=== PATIENT | female | born 1950 | race Caucasian/White ===

== ENCOUNTER 2025-07-16 11:21 | Outpatient (CLI) | payer MEDICARE, SELFPAY ==
--- OUTSIDE RECORDS SUMMARY | 2018-04-19 13:01 | XMS_ITS | Encounter Summary ---
Author Organization [facility] Address [address] [place] [address] Care Team Providers Care Quarry Worker Name Role Phone Rubén Pisano MD Primary Care Provider [phone] Reason for Referral * Hospital - Outpatient (Routine) - Closed Specialty Diagnoses / Procedures Referred By Contac t Referred To Contact Sleep Medicine Diagnoses Suspected sleep apnea Snoring Procedures Home Sleep Study Rubén Pisano MD [address] [place] [address] Phone: tel: fax: Slava Duong MD Phone: tel: fax: Referral ID Status Reason Start Date Expiration Date Visits Re quested Visits Authorized [id number] Closed 04/04/2018 04/04/2019 1 1 Reason for Visit * Hospital - Outpatient (Routine) - Closed Specialty Diagnoses / Procedures Referred By Contac t Referred To Contact Sleep Medicine Diagnoses Suspected sleep apnea Snoring Procedures Home Sleep Study Rubén Pisano MD [address] [place] [address] Phone: tel: fax: Slava Duong MD Phone: tel: fax: Referral ID Status Reason Start Date Expiration Date Visits Re quested Visits Authorized [id number] Closed 04/04/2018 04/04/2019 1 1 Encounter Details Date Type Department Care Team (Latest Contact Info) Description 04/19/2018 2:01 PM EDT Hospital Encounter [facility] [address] [place] [address] Rubén Pisano MD [address] [facility] [address] Suspected sleep apnea; Snoring Social History Tobacco Use Types Packs/Day Years Used Date Smoking Tobacco: Former Cigarettes 0.8 34 Smokeless Tobacco: Never Alcohol Use Standard Drinks/Week Comments Yes 0 (1 standard drink = 0.6 oz pur e alcohol) rare glass of wine Abuse Screen Answer Date Recorded Unsafe at Home or Work/School Not on file Feels Threatened by Someone? Not on file 05/2023 Does Anyone Keep You from Co ntacting Others or Doint Things Outside the Home? Not on file 06/14/2023 Physical Sign of Abuse Present Not on file 1 Housing Stability Answer Date Recorded Current Living Arrangements Not on file 05/2023 Potentially Unsafe Housing Conditions Not on jennifer e 06/14/2023 Family and Community Support Answer Abhinav e Recorded Help with Day-to-Day Activities Not on file 06/14/2023 Lonely or Isolated Not on file 06/14/2023 Employment Answer Date Recorded Do you want help finding or keeping work or a leah b? Not on file 06/14/2023 Disabilities Answer Date Recorded Concentrating, Remembering, or Making Decisions Difficulty Not on file 06/14/2023 Doing Errands Independently Difficulty Not on fi le 06/14/2023 Education Answer Date Recorded Help with school or training? Not on file Preferred Language Not on file 06/14/2023 Comments Unknown Sex and Gender Information Value Date Recorded Sex Assigned at Not on file Legal Sex Female 11:17 AM EDT Gender Identity Not on file Sexual Orientation Not on file Occupation Industry Job Start Date Job End Date retired Not on file Not on file Not on file documented as of this encounter Last Filed Vital Signs Vital Sign Reading Time Taken Comments Blood Pressure 128/80 04/19/2018 1:55 PM EDT Pulse 76 04/19/2018 1:55 PM EDT Temperature - - Respiratory Rate - - Oxygen Saturation 93% 04/19/2018 1:55 PM EDT Inhaled Oxygen Concentration - - Weight 92.6 kg (204 lb 3.2 oz) 04/19/2018 1:55 P M EDT Height 157.5 cm (5' 2 ) 04/19/2018 1:55 PM EDT Body Mass Index 37.35 04/19/2018 1:55 PM EDT documented in this encounter Plan of Treatment Not on file documented as of this encounter Procedures Procedure Name Priority Date/Time Associated Diagnosis Comments WATCHPAT Routine 04/20/2018 10:00 AM EDT Suspected sleep apnea Snoring documented in this encounter Results * WATCHPAT (04/20/2018 10:00 AM EDT) Narrative Slava Duong MD - 04/28/2018 1:21 PM EDT Patient Name: Christina Dillon [facility] Date of : 1950 Date of Study:04/20/18 Sleep Specialist: Slava Duong MD Home Sleep Apnea Test Report Referring Provider: Rubén Pisano M.D. Clinical Information: 68-year-old female with snoring and suspected sleep apnea referred by Dr. Pisano for an HSAT Methods: Patient had home sleep apnea testing with a WatchPat home system. Six data channels were recorded. The study was scored using standard techniques. Findings: The patient had a study time of 503 minutes. She had overall an RICHAR of 48, consistent with severe obstructive sleep apnea. She had oxygen desaturations to 68% and spent 9% of her study time with oxygen saturations less than 90%. Her index when supine was 44. Her index on her side was 81. Impression: Severe obstructive sleep apnea is present. Snoring is present. Oxygen desaturations are present. Recommendations: The patient would likely benefit from treatment for obstructive sleep apnea. Options would include auto CPAP therapy, an oral appliance if appropriate, or surgical therapy. Lifestyle changes consisting of weight loss if needed and avoidance of nocturnal sedatives should be recommended. An average of 8 hours of sleep per night should be recommended. The patient will follow-up with Dr. Pisano for consideration of above treatment options. Slava Duong M.D. Signed by Slava Duong MD on 04/28/18. us Rubén Pisano MD [facility] ORDERABLES Final R esult documented in this encounter Visit Diagnoses Diagnosis Suspected sleep apnea Snoring Other dyspnea and respiratory abnormality documented in this encounter Care Teams Quarry Worker Relationship Specialty Start Date End Date Rubén Pisano MD [address] [place] [address] PCP - General 05/16/15 07/06/19 documented as of this encounter
--- OUTSIDE RECORDS SUMMARY | 2025-05-22 09:20 | XMS_ITS | Encounter Summary ---
Author Organization [facility] Address [address] [place] [address] Care Team Providers Care Bobcat Driver/Labor Name Role Phone Sandy Cooper APRN Primary Care Provider [phone] Emili Foster Unavailable Unavailabl e Reason for Referral * Consultation (Urgent) - Closed Specialty Diagnoses / Procedures Referred By Mona calloway Referred To Contact Gynecology Diagnoses Lower abdominal pain Pelvic [place] [address] Phone: tel: fax: Referral ID Status Reason Start Date Expiration Date V isits Requested Visits Authorized [id number] Closed Specialty Services Required 05/22/2025 11/21/2026 1 1 Scheduling Instructions Would like seen at [facility] in [place] this week if possible. Reason for Visit * Reason Comments Abdominal Pain Been in pain since T hursday night, pressure & then pain hit on Wednesday. 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; Pelvic pain; HSV (herpes simplex virus) infection; Chronic low back pain without sciatica, unspecified back pain laterality; Diffuse abdominal pain Social History Tobacco Use Types Packs/Day Years Used Date Smoking Tobacco: Former Cigarettes 1 20 0 09/06/1964 - 09/06/1981 Passive Smoke Exposure: Never Smokeless Tobacco: Former Tobacco Cessation:Counseling Given: No Alcohol Use Standard Drinks/Week Comments Never 0 (1 standard drink = 0.6 oz pur e alcohol) Social Connection and Isolation Panel Answer Date Recorded In a typical week, how many times do you talk on the phone with family, friends, or neighbors? Three times a week 10/13/2024 How often do you get togethe r with friends or relatives? Once a week 10/13/2024 How often do you attend chur or anabaptist services? Never 10/13/2024 Do you belong to any clubs o r organizations such as rastafarian groups, unions, fraternal or athletic groups, or school groups? Yes 10/13/2024 How often do you attend meet ings of the clubs or organizations you belong to? More than 4 times per year 10/13/2024 Are you , , di vorced, , never , or living with a partner? 10/13/2024 AUDIT-C Answer Date Recorded Q1: How often do you have a drink containing alc ohol? Monthly or less 10/13/2024 Q2: How many drinks containi ng alcohol do you have on a typical day when you are drinking? 1 or 2 10/13/2024 Q3: How often do you have si x or more drinks on one occasion? Never 10/13/2024 PHQ-2 Answer Date Recorded Patient Health Questionnaire-2 Score 0 05/23/2025 PHQ-9 Answer Date Recorded Patient Health Questionnaire-9 Score 6 11/23/2024 Humiliation, Afraid, Rape, and Kick questionnair e Answer Date Recorded Within the last year, have y ou been afraid of your partner or ex-partner? Patient declined 05/22/2025 Within the last year, have y ou been humiliated or emotionally abused in other ways by your partner or ex-partner? Patient declined 05/22/2025 Within the last year, have y ou been kicked, hit, slapped, or otherwise physically hurt by your partner or ex-partner? Patient declined 05/22/2025 Within the last year, have y ou been raped or forced to have any kind of sexual activity by your partner or ex-partner? Patient declined 05/22/2025 Social Connection and Isolation Panel Answer Date Recorded In a typical week, how many times do you talk on the phone with family, friends, or neighbors? Patient declined 05/22/2025 How often do you get togethe r with friends or relatives? Patient declined 05/22/2025 How often do you attend rastafarian or anabaptist serv ices? Patient declined 05/22/2025 Do you belong to any clubs o r organizations such as rastafarian groups, unions, fraternal or athletic groups, or school groups? Patient declined 05/22/2025 How often do you attend meet ings of the clubs or organizations you belong to? Patient declined 05/22/2025 Are you , , di vorced, , never , or living with a partner? Patient declined 05/22/2025 AUDIT-C Answer Date Recorded Q1: How often do you have a drink containing alc ohol? Patient declined 05/22/2025 Q2: How many drinks containi ng alcohol do you have on a typical day when you are drinking? Patient declined 05/22/2025 Q3: How often do you have si x or more drinks on one occasion? Patient declined 05/22/2025 [facility] - Occupational Stress Questionnaire Answer Date Recorded Do you feel stress - tense, restless, nervous, or anxious, or unable to sleep at night because your mind is troubled all the time - these days? Patient declined 05/22/2025 Exercise Vital Sign Answer Date Recorde d On average, how many days pe r week do you engage in moderate to strenuous exercise (like a brisk walk)? Patient declined On average, how many minutes do you engage in exercise at this level? Patient declined 05/22/2025 Hunger Vital Sign Answer Date Recorded Within the past 12 months, y ou worried that your food would run out before you got the money to buy more. Never true 05/22/20 25 Within the past 12 months, t he food you bought just didn't last and you didn't have money to get more. Never true 05/22/2025 PRAPARE - Transportation Answer Date Re corded In the past 12 months, has l ack of transportation kept you from medical appointments or from getting medications? No 05/07 In the past 12 months, has l ack of transportation kept you from meetings, work, or from getting things needed for daily living? No 05/22/2025 Housing Stability Vital Sign Answer Abhinav e Recorded In the last 12 months, was t here a time when you were not able to pay the mortgage or rent on time? No 05/22/2025 In the past 12 months, how m any times have you moved where you were living? 0 05/22/2025 At any time in the past 12 m [facility], were you homeless or living in a halfway (including now)? No 05/22/2025 [facility] Utilities Answer Date Recorded In the past 12 months has th e electric, gas, oil, or water company threatened to shut off services in your home? No 05/22/2025 Safety and Environment Answer Date Benny rded Do you worry that your child may have been physically abused? Patient declined 05/22/2025 Do you worry that your child may have been sexually abused? Patient declined 05/22/2025 Are there any guns kept in o r around your home or where your child spends time? Patient declined 05/22/2025 Guns Unloaded or Locked Away Not on file PHQ-2A Answer Date Recorded Patient Health Questionnaire-2 Score 2 05/31/2023 Comments No Sex and Gender Information Value Date Recorded Sex Assigned at Not on file Legal Sex Female 8:22 PM EDT Gender Identity Not on file Sexual Orientation Not on file documented as of this encounter Last Filed Vital Signs Vital Sign Reading Time Taken Comments Blood Pressure 134/74 05/22/2025 10:10 AM EDT Pulse 75 05/22/2025 10:10 AM EDT Temperature 36.6 C (97.9 F) 05/22/2025 10:10 AM EDT Respiratory Rate 20 05/22/2025 10:1 0 AM EDT Oxygen Saturation 97% 05/22/2025 10: 10 AM EDT Inhaled Oxygen Concentration - - Weight 87.9 kg (193 lb 12.6 oz) 025 10:10 AM EDT Height 157.5 cm (5' 2 ) 05/22/2025 10:1 0 AM EDT Body Mass Index 35.44 05/22/2025 10:10 AM EDT documented in this encounter Functional Status * AUDIT-C Score Answer Date of Assessment Author -1 05/22/2025 10:21 AM EDT Nancy Bright * Question Answer Date of Assessment Author Q1: How often do you have a drink containing alcohol? Patient declined 05/22/2025 10:21 AM EDT Myrna Bright Q2: How many drinks containing alcohol do you have on a typical day when you are drinking? Patient declined 05/22/2025 10:21 AM EDT Nancy Bright Q3: How often do you have six or more drinks on one occasion? Patient declined 05/22/2025 10:21 AM EDT Nancy Bright * Calculated C-SSRS Risk Score (Lifetime/Recent) Answer Date of Assessment Author No Risk Indicated 05/22/2025 10:22 AM EDT Nancy Bright * Question Answer Date of Assessment Author 1. Wish to be (Past 1 Month) No 025 10:22 AM KENDYT Nancy Bright 2. Non-Specific Active Suici prosper Thoughts (Past 1 Month) No 05/22/2025 10:22 AM EDT Alberto Bright 6. Suicidal Behavior (Lifetime) No 10:22 AM EDT Nancy Bright documented as of this encounter Miscellaneous Notes * Progress Notes - Guerda Machuca APRN - 05/22/2025 10:20 AM EDT Subjective Patient ID: Avis Suarez is a 75 y.o. female. Chief Complaint Patient presents with Abdominal Pain Been in pain since night, pressure & then pain hit on Wednesday. Nausea Patient c/o lower abdominal pain and pressure x 5 days. Says she initially felt like she needed to get gas out, but would have a bowel movement, reports small frequent bowel movements. oesn't feel constipated. Denies hematochezia or melena. Has colonoscopy scheduled next month. Says she feels like something is swollen down there or maybe something has dropped. She does have h/o bladder tuck. Saysthe pain/pressure improves after she urinates or has a BM. Denies dysuria, hematuria, or urinary frequency/urgency. Reports associated nausea, no vomiting. Patient also requesting a refill on her levothyroxine and Valtrex. Last TSH in October was abnormal, patient has not had rechecked. She is currently on [id number] mcg daily and reports compliance. Says she uses the Valtrex as needed for HSV outbreaks, no current issues. Lastly, patient is asking for a refill on Tramadol, uses very sparingly for back pain. Denies any previous adverse effects. The following portions of the chart were reviewed this encounter and updated as appropriate: Tobacco Allergies Meds Problems Med Hx Surg Hx Fam Hx Current Medications[1] Review of Systems A 14 point ROS reviewed and is otherwise negative except as per HPI. Objective Visit Vitals BP 134/74 Pulse 75 Temp 36.6 ??C (97.9 ??F) (Oral) Resp 20 Ht 1.575 m (5' 2 ) Wt 87.9 kg (193 lb 12.6 oz) SpO2 97% BMI 35.44 kg/m?? OB Status Postmenopausal Smoking Status Former BSA 1.96 m?? Body mass index is 35.44 kg/m??. Physical Exam Vitals reviewed. Constitutional: General: She is not in acute distress. HENT: Head: Normocephalic. Mouth/Throat: Mouth: Mucous membranes are moist. Eyes: Conjunctiva/sclera: Conjunctivae normal. Cardiovascular: Rate and Rhythm: Normal rate. Pulmonary: Effort: Pulmonary effort is normal. Abdominal: General: Bowel sounds are normal. Palpations: Abdomen is soft. There is no mass. Tenderness: There is abdominal tenderness. Comments: Suprapubic tenderness on palpation. Genitourinary: General: Normal vulva. Comments: Did not tolerate full speculum exam due to pain, but appeared to have some prolapse in the vaginal wall. Skin: General: Skin is warm and dry. Neurological: Mental Status: She is alert and oriented to person, place, and time. Psychiatric: Mood and Affect: Mood normal. Behavior: Behavior normal. Assessment/Plan 1. Lower abdominal pain (Primary) 2. Pelvic pain UA in office with small leuks, o/w normal. Urine culture pending. Will check labs and get her in with [facility], appears to be more of a [facility] issue with possible prolapse. Educated patient on signs/symptomsto monitor for and reasons to follow-up. - POCT Urinalysis dipstick - CBC W/O Differential - Comprehensive Metabolic Panel, Plasma - Urine Culture - Ambulatory referral to Gynecology; Future 3. 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 Will recheck TSH and adjust levothyroxine if needed. - Thyroid Stimulating Hormone, Plasma - levothyroxine (Synthroid, Levoxyl) 112 MCG tablet; Take 1 tablet by mouth daily. Dispense: 90 tablet; Refill: 0 4. HSV (herpes simplex virus) infection Chronic, intermittent issue, asymptomatic currently. Continue Valtrex prn, refill sent. - valACYclovir (Valtrex) 500 MG tablet; Take 1 tablet by mouth daily as needed (cold sore). Dispense: 30 tablet; Refill: 0 5. Chronic low back pain without sciatica, unspecified back pain laterality Intermittent issue. Will send a few Tramadol to use prn. Risks vs benefits and potential adverse effects of the medication discussed. PDMP reviewed and appropriate. - traMADol (Ultram) 50 MG tablet; Take 1 tablet by mouth every 8 hours as needed for severe pain. Dispense: 10 tablet; Refill: 0 Guerda Machuca APRN [1] Current Outpatient Medications: azelastine (Astelin) 0.1 % nasal spray, Administer 1 spray into each nostril 2 (two) times a day. Use in each nostril as directed, Disp: 30 mL, Rfl: 12 brimonidine (AlphaGAN P) 0.15 % ophthalmic solution, Administer 1 drop into both eyes 1 (one) time each day in the morning., Disp: 10 mL, Rfl: 3 brimonidine 0.2 % OP ophthalmic solution, INSTILL 1 DROP INTO EACH EYE EVERY 12 HOURS, Disp: , Rfl: celecoxib (CeleBREX) 200 MG capsule, Take 1 capsule (200 mg) by mouth 2 (two) times a day., Disp: 180 capsule, Rfl: 3 cimetidine (Tagamet) 400 MG tablet, Take 1 tablet (400 mg) by mouth every night. (Patient taking differently: Take 1 tablet by mouth as needed.), Disp: 90 tablet, Rfl: 0 clindamycin (Clindagel) 1 % gel, APPLY TO ACNE UP TO TWICE DAILY NEEDED FOR SPOT TREATMENT, Disp: , Rfl: clindamycin 1 % gel, APPLY THIN LAYER TOPICALLY TO AFFECTED AREA ONCE DAILY, Disp: , Rfl: clobetasol (Temovate) 0.05 % cream, as needed., Disp: , Rfl: cycloSPORINE (Restasis) 0.05 % ophthalmic emulsion, INSTILL 1 DROP INTO EACH EYE TWICE DAILY, Disp:60 each, Rfl: 3 fenofibrate (Tricor) 145 MG tablet, Take 1 tablet by mouth daily., Disp: 30 tablet, Rfl: 5 hydrocortisone 2.5 % ointment, APPLY OINTMENT EXTERNALLY TWICE DAILY, Disp: 29 g, Rfl: 0 ipratropium-albuterol (Duo-Neb) 0.5-2.5 mg/3 mL nebulizer solution, Take 3 mL by nebulization every4 to 6 hours as needed for wheezing or shortness of breath., Disp: 180 mL, Rfl: 1 levothyroxine (Synthroid, Levoxyl) 112 MCG tablet, Take 1 tablet by mouth once daily, Disp: 90 tablet, Rfl: 0 mometasone-formoterol (Dulera 200) 200-5 MCG/ACT inhaler, Inhale 2 puffs in the morning and 2 puffsbefore bedtime. Rinse mouth with water after use to reduce aftertaste and incidence of candidiasis.Do not swallow., Disp: 13 g, Rfl: 1 mupirocin (Bactroban) 2 % ointment, APPLY TWICE DAILY TO NOSTRILS,BELLY BUTTON, AND FINGERNAILS THEFIRST 2 DAYS OF EVERY MONTH THEREAFTER, Disp: , Rfl: phenazopyridine (Pyridium) 200 MG tablet, Take 1 tablet by mouth three times daily if needed for discomfort, irritation or pain (Patient taking differently: as needed. Take 1 tablet by mouth three times daily if needed for discomfort, irritation or pain), Disp: 90 tablet, Rfl: 9 Protonix 40 MG EC tablet, Take 1 tablet (40 mg) by mouth 1 (one) time each day before breakfast. Donot crush, chew, or split., Disp: 90 tablet, Rfl: 3 valACYclovir (Valtrex) 500 MG tablet, TAKE 1 TABLET DAILY (Patient taking differently: as needed.),Disp: 90 tablet, Rfl: 1 Fenofibrate 150 MG capsule, Take 1 capsule by mouth daily., Disp: , Rfl: furosemide (Lasix) 20 MG tablet, Take 1 tablet by mouth daily., Disp: , Rfl: timolol (Timoptic) 0.25 % ophthalmic solution, Administer 1 drop into both eyes 2 times a day., Disp: , Rfl: documented in this encounter Plan of Treatment Upcoming Encounters Date Type Department Care Team (Late st Contact Info) Description 08/23/2025 1:15 PM EST Office Visit Obstetrics & Gynecology [address] [place] [address] Rafael Ravi MD [address] [place] [address] Scheduled Referrals Name Type Priority Associated Diagnoses Order Schedule Ambulatory referral to Gynecology Outpatient Referral Routine Lower abdominal pain Pelvic pain Expected: 05/22/2025 (Approximate), Expires: 11/19/2026 documented as of this encounter Procedures Procedure Name Priority Date/Time Associated Diagnosis Comments URINE CULTURE Routine 05/22/2025 10:57 AM EDT Lower abdominal pain Pelvic pain CBC W/O DIFFERENTIAL Routine 05/22/2025 10:53 AM EDT Lower abdominal pain Pelvic pain TSH Routine 05/22/2025 10:53 AM EDT 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 05/23/2025 11:40 AM EDT [facility] Urine Urine specimen obtained by clean catch procedure / Unknown Non-blood Collection / Unknown 05/22/2025 10:57 AM EDT 05/22/2025 10:57 AM EDT us Guerda Machuca APRN LAB MICROBIOLOGY - GENERAL NAOMI LUTHER Final Result [facility] [address] [place] [address] * Comprehensive Metabolic Panel, Plasma (05/22/2025 10:53 AM EDT) Glucose, Plasma 90 74 - 99 mg/dL 05/22/2025 3:04 PM EDT [facility] BUN, Plasma 10 8 - 23 mg/dL 05/22/2025 3:04 PM EDT [facility] Creatinine, Plasma 0.65 0.60 - 1.10 mg/dL 05/22/2025 3:04 PM EDT [facility] BUN/Creatinine Ratio 15 05/22/2025 3:04 PM EDT [facility] Sodium, Plasma 141 136 - 145 mmol/L 05/22/2025 3:04 PM EDT [facility] Potassium, Plasma 4.2 3.6 - 4.9 mmol/L 05/22/2025 3:04 PM EDT [facility] Chloride, Plasma 107 97 - 107 mmol/L 05/22/2025 3:04 PM EDT [facility] CO2, Plasma 22 22 - 29 mmol/L 05/22/2025 3:04 PM EDT [facility] Anion Gap 12 6 - 16 mmol/L 05/22/2025 3:04 PM EDT [facility] Total Calcium, Plasma 9.7 8.9 - 10.2 mg/dL 05/22/2025 3:04 PM EDT [facility] Total Protein 7.7 6.3 - 7.9 g/dL 05/22/2025 3:04 PM EDT [facility] Albumin, Plasma 4.3 3.5 - 5.2 g/dL 05/22/2025 3:04 PM EDT [facility] AST, Plasma 34 10 - 35 U/L 05/22/2025 3:04 PM EDT [facility] ALT, Plasma 20 10 - 35 U/L 05/22/2025 3:04 PM EDT [facility] Alkaline Phosphatase, Plasma 73 46 - 142 U/L 05/22/2025 3:04 PM EDT [facility] Total Bilirubin, Plasma 0.4 0.2 - 1.1 mg/dL 05/22/2025 3:04 PM EDT [facility] eGFRcr 92.5 mL/min/1.7 3m*2 05/22/2025 3:04 PM EDT [facility] Comment:Reported eGFRcr in m L/min/1.73m2 is based the CKD-EPI 2020 equation that does not use a race coefficient. Blood Venous blood specimen / Unknown Venipuncture / Unknown 05/22/2025 10:53 AM EDT 05/22/2025 10:53 AM EDT us Guerda Machuca APRN LAB BLOOD ORDERABLES Final Resu lt [facility] [address] [place] [address] * CBC W/O Differential (05/22/2025 10:53 AM EDT) WBC Count 6.94 3.70 - 10.30 10*3/uL LAB HEMATOLOGY METHOD 05/22/2025 2:39 PM EDT [facility] RBC Count 4.97 3.90 - 5.20 10*6/uL LAB HEMATOLOGY METHOD 05/22/2025 2:39 PM EDT [facility] HGB 14.5 11.2 - 15.7 g/dL LAB HEMATOLOGY METHOD 05/22/2025 2:39 PM EDT [facility] HCT 43.5 34.0 - 45.0 % LAB HEMATOLOGY METHOD 05/22/2025 2:39 PM EDT [facility] Platelet Count 249 155 - 369 10*3/uL LAB HEMATOLOGY METHOD 05/22/2025 2:39 PM EDT [facility] MCV 88 79 - 98 fL LAB HEMATOLOGY METHOD 05/22/2025 2:39 PM EDT [facility] MCH 29.2 26.0 - 32.0 pg LAB HEMATOLOGY METHOD 05/22/2025 2:39 PM EDT [facility] MCHC 33.3 30.7 - 35.5 g/dL LAB HEMATOLOGY METHOD 05/22/2025 2:39 PM EDT [facility] RDW 13.5 11.5 - 14.5 % LAB HEMATOLOGY METHOD 05/22/2025 2:39 PM EDT [facility] MPV 11.3 8.8 - 12.5 fL LAB HEMATOLOGY METHOD 05/22/2025 2:39 PM EDT [facility] nRBC 0.0 <=0.0 per 100 WBCs LAB HEMATOLOGY METHOD 05/22/2025 2:39 PM EDT [facility] Blood Venous blood specimen / Unknown Venipuncture / Unknown 05/22/2025 10:53 AM EDT 05/22/2025 10:53 AM EDT us Guerda Machuca APRN LAB BLOOD ORDERABLES Final Resu lt [facility] [address] [place] [address] * Thyroid Stimulating Hormone, Plasma (05/22/2025 10:53 AM EDT) Pathologist [facility] Thyroid Stimulating Hormone, Plasma 3.66 0.40 - 4.20 uIU/mL 05/22/2025 3:04 PM EDT [facility] Blood Venous blood specimen / Unknown Venipuncture / Unknown 05/22/2025 10:53 AM EDT 05/22/2025 10:53 AM EDT us Guerda Machuca APRN LAB BLOOD ORDERABLES Final Resu lt [facility] [address] [place] [address] * (ABNORMAL) POCT Urinalysis dipstick (05/22/2025 10:47 AM EDT) POCT Urine Color Yellow POCT Urine Clarity Clear POCT Glucose Urine Negative Negative mg/dL POCT Bilirubin, Urine Negative Negative POCT Ketones, Urine Negative Negative mg/dL POCT Specific [place], Urine 1.020 POCT Blood, Urine Negative Negative POCT pH, Urine 7.0 5.0 to 8.0 POCT Protein, Urine Negative Negative mg/dL POCT Urobilinogen, Urine 0.2 0.2, 1 E.U./dL POCT Nitrite, Urine Negative Negative POCT Leukocyte Esterase, Urine Small(A) Negative Test Strip Lot Number [id number] Test Strip Lot Expiration [id number] Urine Urine specimen obtained by clean catch procedure / Unknown 05/22/2025 10:47 AM EDT Guerda Machuca APRN POINT OF CARE TEST ENTER/EDIT O RDERABLES Final Result documented in this encounter Visit Diagnoses Diagnosis Lower abdominal pain- Primary Abdominal pain, other specified site 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 Pelvic pain HSV (herpes simplex virus) infection Herpes simplex without mention of complication Chronic low back pain without sciatica, unspecified back pain laterality Diffuse abdominal pain documented in this encounter Additional Health Concerns Infection Onset Date Last Indicated Resolved Time 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
--- OUTSIDE RECORDS SUMMARY | 2025-05-23 09:15 | XMS_ITS | Encounter Summary ---
Author Organization Healthcare Address [address] [place] [address] Care Team Providers Care Mine Production Engineer Name Role Phone Sandy Cooper FRONT OFFICE SPECIALIST Primary Care Provider [phone] Emili Foster Unavailable Unavailabl e Reason for Visit * Reason Comments Establish Care Vaginal pain and pre ssure * Consultation (Urgent) - Closed Specialty Diagnoses / Procedures Referred By Contalex t Referred To Contact Gynecology Diagnoses Lower abdominal pain Pelvic pain Guerda Machuca, [place] [address] Phone: tel: fax: Referral ID Status Reason Start Date Expiration Date V isits Requested Visits Authorized [id number] Closed Specialty Services Required 05/22/2025 11/21/2026 1 1 Encounter Details Date Type Department Care Team (Late st Contact Info) Description 05/23/2025 10:15 AM EDT Office Visit Obstetrics & Gynecology [address] [place] [address] Rafael Ravi MD [address] [place] [address] Pelvic and perineal pain (Primary Dx); Vaginal atrophy Social History Tobacco Use Types Packs/Day Years Used Date Smoking Tobacco: Former Cigarettes 1 20 0 09/06/1964 - 09/06/1981 Passive Smoke Exposure: Never Smokeless Tobacco: Former Tobacco Cessation:Counseling Given: Not Answered Alcohol Use Standard Drinks/Week Comments Never 0 [...] 10/13/2024 How often do you attend chur ch or baptism services? Never 10/13/2024 Do you belong to any clubs o r organizations such as episcopalian groups, unions, fraternal or athletic groups, or [...] declined 05/22/2025 How often do you attend episcopalian or baptism serv ices? Patient declined 05/22/2025 Do you belong to any clubs o r organizations such as episcopalian groups, unions, fraternal or athletic groups, or [...] drinks on one occasion? Patient declined [facility] - Occupational Stress Questionnaire Answer Date Recorded [...] any time in the past 12 m [facility], were you homeless or living in a usp (including now)? No 05/22/2025 [facility] Utilities Answer Date Recorded In the past 12 months has [employer], gas, oil, or water company threatened to [...] Sign Reading Time Taken Comments Blood Pressure 156/85 05/23/2025 10:07 AM EDT Pulse 61 05/23/2025 10:07 AM EDT Temperature - - Respiratory Rate 20 05/23/2025 10:07 AM EDT Oxygen Saturation 98% 05/23/2025 10:07 AM EDT Inhaled Oxygen Concentration - - Weight 88.6 kg (195 lb 5.2 oz) 05/23/2025 10:07 AM EDT Height 157.5 cm (5' 2 ) 05/23/2025 10:07 AM EDT Body Mass Index 35.73 05/23/2025 10:07 AM EDT documented in this encounter Functional Status * Over the past 2 weeks, how often have you been bothered by any of the following problems? Question Answer Date of Assessment Author Little interest or pleasure in doing things Not at all 05/23/2025 10:09 AM EDT Deneen Sifuentes Feeling down, depressed, or hopeless Not at all 05/23/2025 10:09 AM EDT Deneen Sifuentes Patient Health Questionnaire -2 Score 0 05/23/2025 10:09 AM EDT Deneen Sifuentes documented as of this encounter Miscellaneous Notes * Progress Notes - Rafael Ravi MD - 05/23/2025 10:15 AM EDT Gynecology Note Subjective Chief Complaint Patient presents with [facility] Care Vaginal pain and pressure Thermal Erick is a 75 y.o. ( x 1) here for a new gynecologic visit. Here for evaluation of pelvic pain x 6 days - but really for much longer - some DUC/no pads - no VB- H/O HYST - 1996 for pain + endometriosis. Pain is midline - bladder - pain with urination but feels better after stream concludes. NL BM. NO breast issues. Has felt a bulge in the vagina before. Saw PCM for this - told her she may have a UTI - CX pending. LMMG - 2 m ago - [facility] Abdominal Pain This is a new problem. The current episode started in the past 7 days. The onset quality is sudden.The problem occurs constantly. The most recent episode lasted 6 days. The problem has been waxing and waning. The pain is located in the RLQ and suprapubic region. The pain is at a severity of 10/10.The quality of the pain is aching, dull and a sensation of fullness. The abdominal pain radiates to the pelvis. Associated symptoms include diarrhea, flatus, frequency and nausea. The pain is aggravated by certain positions. The pain is relieved by Bowel movements, movement, passing flatus, standing and urination. Prior diagnostic workup includes surgery. Past Medical History She has a past medical history of Absolute glaucoma, Anxiety, Asthma, Conversions - Other, Depression, Dizziness, Dry eyes, Fatty liver, GERD (gastroesophageal reflux disease), HL (hearing loss), Hyperlipidemia, Hypothyroid, Obesity, Otitis media, Recurrent upper respiratory infection (URI), Seasonal allergies, Skin cancer, Sleep apnea, Tinnitus (15 years ago), and Visual impairment. Past Surgical History She has a past surgical history that includes Hysterectomy (N/A); Gallbladder surgery (N/A); Cholecystectomy; Bladder surgery; Ventral hernia repair (12/2021); Cataract extraction; Shoulder arthroscopy; and Bronchoscopy (2016). Social History She reports that she quit smoking about 43 years ago. Her smoking use included cigarettes. She started smoking about 60 years ago. She has a 20 pack-year smoking history. She has never been exposed to tobacco smoke. She has quit using smokeless tobacco. She reports that she does not drink alcohol and does not use drugs. Family History Her family history includes Allergies in her mother; Cancer in her sister; Diabetes in an other family member; Osteoarthritis in her sister; Other cancer in her mother. Current Medications She has a current medication list which includes the following prescription(s): azelastine, brimonidine, brimonidine, celecoxib, cimetidine, clindamycin, clindamycin, clobetasol, cyclosporine, fenofibrate, fenofibrate, furosemide, hydrocortisone, ipratropium-albuterol, levothyroxine, mometasone-formoterol, mupirocin, phenazopyridine, protonix, timolol, tramadol, and valacyclovir. Allergies Allergies Codeine and Sulfa drugs Review of Systems Constitutional: Negative. HENT: Negative. Eyes: Negative. Respiratory: Negative. Cardiovascular: Negative. Gastrointestinal: Positive for abdominal pain, diarrhea, flatus and nausea. Endocrine: Negative. Genitourinary: Positive for frequency and pelvic pain. Musculoskeletal: Negative. Skin: Negative. Allergic/Immunologic: Negative. Neurological: Negative. Hematological: Negative. Psychiatric/Behavioral: Negative. All other systems reviewed and are negative. Objective Visit Vitals BP (!) 156/85 Pulse 61 Resp 20 Body mass index is 35.73 kg/m??. Physical Exam Constitutional: Appearance: Normal appearance. Genitourinary: Vulva, bladder and urethral meatus normal. No lesions in the vagina. Right Labia: No rash, tenderness, lesions, skin changes or Bartholin's cyst. Left Labia: No tenderness, lesions, skin changes, Bartholin's cyst or rash. Vaginal discharge, erythema and tenderness present. No vaginal bleeding, ulceration or granulation tissue. No vaginal prolapse present. Severe vaginal atrophy present. Pelvic exam was performed with patient in the lithotomy position. HENT: Head: Normocephalic and atraumatic. Right Ear: External ear normal. Left Ear: External ear normal. Cardiovascular: Rate and Rhythm: Normal rate and regular rhythm. Heart sounds: Normal heart sounds. Pulmonary: Effort: Pulmonary effort is normal. Breath sounds: Normal breath sounds. Abdominal: General: Abdomen is flat. Palpations: Abdomen is soft. Musculoskeletal: General: Normal range of motion. Cervical back: Normal range of motion. Neurological: General: No focal deficit present. Mental Status: She is alert and oriented to person, place, and time. Skin: General: Skin is warm and dry. Psychiatric: Mood and Affect: Mood normal. Behavior: Behavior normal. Thought Content: Thought content normal. Judgment: Judgment normal. Vitals and nursing note reviewed. Exam conducted with a vocational nurse present. Assessment/Plan Assessment & Plan Pelvic and perineal pain Orders: metroNIDAZOLE (Flagyl) 500 MG tablet; Take 1 tablet by mouth 2 times a day for 7 days. Vaginal atrophy Orders: metroNIDAZOLE (Flagyl) 500 MG tablet; Take 1 tablet by mouth 2 times a day for 7 days. Obtain UCX results from PCM RX E2 Vag cream - every other day RX vaginitis meds EXTERNAL RELATIONS DIRECTOR TVUS 4 weeks NO POP Voices agreement A total of 32 minutes was spent on this visit with at least more than 50% of the encounter spent incounseling and/or coordinating care including reviewing previous notes, counseling the patient on their identified issues as indicated in the note, discussing previous and/or ordered tests or imaging, prescribing/refilling medications, and documenting the findings in this note, as well as laying out a specific plan of action for this patient. documented in this encounter Plan of Treatment Upcoming Encounters Date Type Department Care Team (Late st Contact Info) Description 08/23/2025 1:15 PM EST Office Visit Obstetrics & Gynecology [address] [place] [address] Rafael Ravi MD [address] [place] [address] documented as of this encounter Visit Diagnoses Diagnosis Pelvic and perineal pain- Primary Vaginal atrophy Postmenopausal atrophic vaginitis documented in this encounter Additional Health Concerns Infection Onset Date Last Indicated Resolved Time MRSA 11/19/2021 11/19/2021 Assessment Noted Time PHQ-9 Depression Total Score: 6 11/24/19 2:15 PM EDT A fall risk assessment has been complete d for the patient 05/23/2025 10:10 AM EDT A Body Mass Index follow-up plan has been documented for the patient 05/23/2025 10:51 AM EDT documented as of this encounter Care Teams Mine Production Engineer Relationship Specialty Start Date End Date Sandy Cooper APRN [address] [place] [address] PCP - General 01/17/21 Emili Foster Clinical Fusing Machine Operator 05/21/25 06/25/25 documented as of this encounter
--- OUTSIDE RECORDS SUMMARY | 2025-06-19 12:00 | XMS_ITS | Encounter Summary ---
Author Organization Healthcare Address [address] [place] [address] Care Team Providers Care High School Biology Teacher Name Role Phone Sandy Cooper APRN Primary Care Provider [phone] Emili Foster Unavailabl e Encounter Details Date Type Department Care Team (Latest Contact Info) Description 06/19/2025 1:00 PM EDT Ancillary Procedure Obstetrics & Gynecology [address] [place] [address] Pelvic and perineal pain Social History Tobacco Use Types Packs/Day Years Used Date Smoking Tobacco: Former Cigarettes 1 20 0 09/06/1964 - 09/06/1981 Passive Smoke Exposure: Never Smokeless Tobacco: Former Alcohol Use Standard Drinks/Week Comments Never 0 [...] often do you attend chur ch or presybeterian services? Never 10/13/2024 Do you belong to any clubs o r organizations such as protestant groups, unions, fraternal or athletic groups, or [...] Date Recorded Patient Health Questionnaire-2 Score 0 06/19/2025 PHQ-9 Answer Date Recorded Patient Health Questionnaire-9 [...] declined 05/22/2025 How often do you attend protestant or presybeterian serv ices? Patient declined 05/22/2025 Do you belong to any clubs o r organizations such as protestant groups, unions, fraternal or athletic groups, or [...] drinks on one occasion? Patient declined 05/22/2025 [facility] - Occupational Stress Questionnaire Answer Date [...] any time in the past 12 m onths, were you homeless or living in a [place] (including now)? No 05/22/2025 [facility] Utilities Answer Date Recorded In the [...] on file documented as of this encounter Functional Status * Over the past 2 weeks, how often have you been bothered by any of the following problems? Question Answer Date of Assessment Author Little interest or pleasure in doing things Not at all 06/19/2025 1:23 PM EDT Horacio Santiago Feeling down, depressed, or hopeless Not at all 06/19/2025 1:23 PM EDT Horacio Santiago Patient Health Questionnaire-2 Score 0 06/19/2025 1:23 PM EDT Bridget Santiago * How difficult have these problems made it for you to do your work, take care of things at home, or get along with other people? Answer Date of Assessment Author Not difficult at all 06/19/2025 1:23 PM EDT Bridget Mcmullen documented as of this encounter Plan of Treatment Upcoming Encounters Date Type Department Care Team (Late st Contact Info) Description 08/23/2025 1:15 PM EST Office Visit Obstetrics & Gynecology [address] [place] [address] Rafael Ravi MD [address] [place] [address] documented as of this encounter Procedures Procedure Name Priority Date/Time Associated Diagnosis Comments US PELVIS TRANSVAGINAL Routine 06/19/2025 12:59 PM EDT Pelvic and perineal pain documented in this encounter Results * US Pelvis Transvaginal (06/19/2025 12:59 PM EDT) Anatomical Region Laterality Modality Pelvis Ultrasound 06/19/2025 1:36 PM EDT Impressions 06/19/2025 1:46 PM EDT The OB Ultrasound you requested has been resulted. Please navigate to the Imaging tab in [employer] for review. This message has been generated by the interface. Narrative Procedure Note Rafael Ravi MD - 06/19/2025 IMPRESSION: The OB Ultrasound you requested has been resulted. Please navigate to theImaging tab in [employer] for review. This message has been generated by theinterface. us Rafael Ravi MD IMG US PROCEDURES Final Result documented in this encounter Visit Diagnoses Diagnosis Pelvic and perineal pain documented in this encounter Additional Health Concerns Infection Onset Date Last Indicated Resolved Time MRSA 11/19/2021 11/19/2021 Assessment Noted Time PHQ-9 Depression Total Score: 6 11/24/19 2:15 PM EDT A fall risk assessment has been complete d for the patient 06/19/2025 1:23 PM EDT A Body Mass Index follow-up plan has been documented for the patient 06/19/2025 1:46 PM EDT documented as of this encounter Care Teams High School Biology Teacher Relationship Specialty Start Date End Date Sandy Cooper APRN [address] [place] [address] PCP - General 01/17/21 Emili Foster Clinical Manager Cleaning 05/21/25 06/25/25 documented as of this encounter
--- OUTSIDE RECORDS SUMMARY | 2025-06-19 12:30 | XMS_ITS | Encounter Summary ---
Author Organization Healthcare Address [address] [place] [address] Care Team Providers Care Plastic Fabricator Name Role Phone Sandy Cooper APRN Primary Care Provider [phone] Emili Foster Unavailable Unavailabl e Reason for Referral * Consultation (Routine) - Authorized Specialty Diagnoses / Procedures Referred By Mona calloway Referred To Contact Physical Therapy Diagnoses Strain of psoas muscle, unspecified laterality, initial encounter Rafael Ravi MD [address] [place] [address] Phone: tel: fax: [facility] Physical Therapy - [address] [address] Phone: tel: fax: Referral ID Status Reason Start Date Expiration Date Visits Requested Visits Authorized [id number] Authorized Consult and Treat 06/19/2025 12/19/2026 1 1 Reason for Visit * Reason Comments Office Visit Pt is here for an US stated she is having an little pain on right side of abdomen . Encounter Details Date Type Department Care Team (Late st Contact Info) Description 06/19/2025 1:30 PM EDT Office Visit Obstetrics & Gynecology [address] [place] [address] Rafael Ravi MD [address] [place] [address] Pelvic and perineal pain (Primary Dx); Vaginal atrophy; Strain of psoas muscle, unspecified laterality, initial encounter Social History Tobacco Use Types Packs/Day Years [...] week 10/13/2024 How often do you attend [facility] or scientology services? Never 10/13/2024 Do you belong to any clubs o r organizations such as lutheran groups, unions, fraternal or athletic groups, or [...] declined 05/22/2025 How often do you attend lutheran or scientology serv ices? Patient declined 05/22/2025 Do you belong to any clubs o r organizations such as lutheran groups, unions, fraternal or athletic groups, or [...] drinks on one occasion? Patient declined [facility]/22/20[facility] - Occupational Stress Questionnaire Answer Date [...] any time in the past 12 m [facility], were you homeless or living in a penitentiary (including now)? No 05/22/2025 [facility] Utilities Answer Date Recorded In [...] Sign Reading Time Taken Comments Blood Pressure 128/71 06/19/2025 1:21 PM EDT Pulse 62 06/19/2025 1:21 PM EDT Temperature 36.8 C (98.2 F) 06/19/2025 1:21 PM EDT Respiratory Rate - - Oxygen Saturation 97% 06/19/2025 1:21 PM EDT Inhaled Oxygen Concentration - - Weight 87 kg (191 lb 12.8 oz) 06/19/2025 1:21 PM EDT Height - - Body Mass Index 35.08 05/23/2025 10:07 AM EDT documented in this [...] difficult at all 06/19/2025 1:23 PM EDT SheBridget Dewitt documented as of this encounter Miscellaneous Notes * Progress Notes - Rafael Ravi MD - 06/19/2025 1:30 PM EDT Gynecology Note Subjective Chief Complaint Patient presents with Office Visit Pt is here for an US stated she is having an little pain on right side of abdomen . Christina Suarez is a 75 y.o. ( x 1) here for a f/u gynecologic visit. Here for f/u evaluation of pelvic pain x 6 days - but really for much longer - some DUC/no pads - no VB - H/O HYST - 1996 for pain + endometriosis. Pain is midline (R>L) - bladder - pain with urination but feels better after stream concludes. NL BM. NO breast issues. Has felt a bulge in the vagina before. Saw PCM for this - told her she may have a UTI - CX pending. LMMG - 2 m ago - wnl [facility] For DEVOPS TVUS + plan today. Abdominal Pain This is a new problem. [...] (hearing loss), Hyperlipidemia, Hypothyroid, Obesity, Otitis media, Pharyngitis (10/17/21), Recurrent upper respiratoryinfection (URI), Seasonal allergies, Skin cancer, Sleep apnea, Tinnitus (15 years ago), and Visual impairment. Past Surgical History She has a past surgical history that includes Hysterectomy (N/A); Gallbladder surgery (N/A); Cholecystectomy; Bladder surgery; Ventral hernia repair (12/2021); Cataract extraction; Shoulder arthroscopy; and Bronchoscopy (2015). Social History She reports that she quit [...] brimonidine, celecoxib, cimetidine, clindamycin, clindamycin, clobetasol, cyclosporine, estradiol, fenofibrate, fenofibrate, furosemide, hydrocortisone, ipratropium-albuterol, levothyroxine, mometasone- formoterol, mupirocin, phenazopyridine, protonix, timolol, tramadol, and valacyclovir. [...] and are negative. Objective Visit Vitals BP 128/71 Pulse 62 Temp 36.8 ??C (98.2 ??F) Body mass index is 35.08 kg/m??. Physical Exam Constitutional: Appearance: Normal appearance. Genitourinary: Vulva normal. Right Labia: No rash, tenderness, lesions, skin changes or Bartholin's cyst. Left Labia: No tenderness, lesions, skin changes, Bartholin's cyst or rash. HENT: Head: Normocephalic and atraumatic. Right Ear: External ear normal. Left Ear: External ear normal. Pulmonary: Effort: Pulmonary effort is normal. Abdominal: General: Abdomen is flat. Palpations: Abdomen [...] nursing note reviewed. Exam conducted with a senior accountant cpa present. DEVOPS TVUS - NO DEVOPS organs visualized - NO FF Assessment/Plan Assessment & Plan Pelvic and perineal pain Orders: US Pelvis Transvaginal; Future Vaginal atrophy Strain of psoas muscle, unspecified laterality, initial encounter Orders: Ambulatory referral to Physical Therapy; Future Continue E2 Vag cream - every other day Discussed DEVOPS TVUS - reassurance Suspect Psoas BL - Refer to PFPT F/U 2 m Voices agreement A total of 32 minutes [...] Visit Obstetrics & Gynecology [address] [place] [address] Rafael Ravi MD [address] [place] [address] Scheduled Referrals Name Type Priority Associated Diagnoses Orde r Schedule Ambulatory referral to Physical Therapy Outpatient Referral Routine Strain of psoas muscle, unspecified laterality, initial encounter Expected: 06/19/2025 (Approximate), Expires: 12/21/2026 documented as of this encounter Results * US Pelvis Transvaginal (06/19/2025 12:59 PM EDT) Anatomical Region Laterality Modality Pelvis Ultrasound 06/19/2025 1:36 PM EDT Impressions 06/19/2025 1:46 PM EDT The OB Ultrasound you requested has been resulted. Please navigate to the Imaging tab in [facility] for review. This message has been generated by the interface. Narrative Procedure Note Rafael Ravi MD - 06/19/2025 IMPRESSION: The OB Ultrasound you requested has been resulted. Please navigate to theImaging tab in [facility] for review. This message has been generated by theinterface. us Rafael Ravi MD IMG US PROCEDURES Final Result documented in this encounter Visit Diagnoses Diagnosis Pelvic and perineal pain- Primary Vaginal atrophy Postmenopausal atrophic vaginitis Strain of psoas muscle, unspecified laterality, initial encounter Pelvic and perineal pain documented in this encounter Additional Health Concerns Infection Onset Date Last Indicated Resolved Time MRSA 11/19/2021 11/19/2021 Assessment Noted Time PHQ-9 Depression Total Score: 6 11/24/19 25 2:15 PM EDT A fall risk assessment has been complete d for the patient 06/19/2025 1:23 PM EDT A Body Mass Index follow-up plan has been documented for the patient 06/19/2025 1:46 PM EDT documented as of this encounter Care Teams Plastic Fabricator Relationship Specialty Start Date End Date Sandy Cooper APRN [address] [place] [address] PCP - General 01/17/21 Emili Foster Clinical Windows System Admin 05/21/25 06/25/25 documented as of this encounter
--- OUTSIDE RECORDS SUMMARY | 2025-06-25 09:20 | XMS_ITS | Encounter Summary ---
Author Organization Healthcare Address [address] [place] [address] Care Team Providers Care Geography Instructor Name Role Phone Sandy Cooper APRN Primary Care Provider [phone] Emili Foster Unavailable Unavailabl e Reason for Visit * Reason Comments Cough Nasal Congestion Encounter Details Date Type Department Care Team (Late st Contact Info) Description 06/25/2025 10:20 AM EDT Office Visit [facility] [address] [place] [address] Nat Bass MD [address] [place] [address] Acute bronchitis due to other specified organisms (Primary Dx) Social History Tobacco Use Types Packs/Day Years [...] How often do you attend chur or pentecostal services? Never 10/13/2024 Do you belong to any clubs o r organizations such as mu-ism groups, unions, fraternal or athletic groups, or [...] declined 05/22/2025 How often do you attend mu-ism or pentecostal serv ices? Patient declined 05/22/2025 Do you belong to any clubs o r organizations such as mu-ism groups, unions, fraternal or athletic groups, or [...] drinks on one occasion? Patient declined 05/22/2025 [facility] Questionnaire Answer Date [...] any time in the past 12 m [facility], were you homeless or living in a jail (including now)? No 05/22/2025 [facility] Utilities Answer Date Recorded In the [...] Sign Reading Time Taken Comments Blood Pressure 118/80 06/25/2025 10:16 AM EDT Pulse 78 06/25/2025 10:16 AM EDT Temperature 36.8 C (98.3 F) 06/25/2025 10:16 AM EDT Respiratory Rate - - Oxygen Saturation 98% 06/25/2025 10:16 AM EDT Inhaled Oxygen Concentration - - Weight 86.8 kg (191 lb 5.8 oz) 06/25/2025 10:16 AM EDT Height 157.5 cm (5' 2 ) 06/25/2025 10:16 AM EDT Body Mass Index 35 06/25/2025 10:16 AM EDT documented in this encounter Functional Status * Calculated C-SSRS Risk Score (Lifetime/Recent) Answer Date of Assessment Author No Risk Indicated 06/25/2025 10:22 AM EDT Selene Aguero * Question Answer Date of Assessment Author 1. Wish to be (Past 1 Month) No 025 10:22 AM EDT Selene Aguero 2. Non-Specific Active Suici prosper Thoughts (Past 1 Month) No 06/25/2025 10:22 AM EDT Selene Aguero 6. Suicidal Behavior (Lifetime) No 10:22 AM EDT Selene Aguero documented as of this encounter Miscellaneous Notes * Progress Notes - Nat Bass MD - 06/25/2025 10:20 AM EDT Subjective Patient ID: Avis Suarez is a 75 y.o. female. Chief Complaint Patient presents with Cough Nasal Congestion Cough Had covid 2 weeks ago, seen at [facility] and give cough meds, had been going on 3 days at that time. Cough worsening and now sputum is davies and thick. Some frontal headache and pressure. No fevers. Current Medications[1] Pertinent review of systems has been performed and negative except as noted in HPI. Pertinent areas of the chart reviewed include social, family, past medical and surgical history. Objective Physical Exam Vitals reviewed. Constitutional: General: She is awake. Appearance: Normal appearance. HENT: Head: Normocephalic and atraumatic. Nose: Congestion and rhinorrhea present. Mouth/Throat: Pharynx: Posterior oropharyngeal erythema present. No oropharyngeal exudate. Eyes: Pupils: Pupils are equal, round, and reactive to light. Cardiovascular: Rate and Rhythm: Normal rate and regular rhythm. Heart sounds: Normal heart sounds. Pulmonary: Effort: Pulmonary effort is normal. Breath sounds: Normal breath sounds and air entry. Comments: Frequent coughing Abdominal: Palpations: Abdomen is soft. Skin: General: Skin is warm. Neurological: Mental Status: She is alert and oriented to person, place, and time. Mental status is at baseline. Psychiatric: Mood and Affect: Mood normal. Behavior: Behavior normal. Behavior is cooperative. Thought Content: Thought content normal. Assessment/Plan Diagnoses and all orders for this visit: Acute bronchitis due to other specified organisms - azithromycin (Zithromax) 250 MG tablet; Take 2 tabs (500 mg) by mouth today, than 1 daily for 4 days. - predniSONE (Deltasone) 20 MG tablet; Take 2 tablets by mouth daily for 5 days. May need UA another day if symptoms return. Tx for bronchitis today, ahs been over 2 weeks with increased sputum. No follow-ups on file. Note to patient: The Century Cures Act makes medical notes like these available to patients inthe interest of transparency. However, be advised this is a medical document. It is intended as peer to peer communication. It is written in medical language and may contain abbreviations or verbiagethat are unfamiliar. It may appear blunt or direct. Medical documents are intended to carry relevant information, facts as evident, and the clinical opinion of the practitioner. [1] Current Outpatient Medications: Azelastine HCl 137 MCG/SPRAY solution, Administer 1 spray into each nostril 2 times a day. As directed, Disp: 30 mL, Rfl: 11 brimonidine (AlphaGAN P) 0.15 % ophthalmic solution, [...] EYE TWICE DAILY, Disp:60 each, Rfl: 3 estradiol (Estrace) 0.1 MG/GM vaginal cream, Insert 2 g into the vagina every other day. At bedtime., Disp: 42.5 g, Rfl: 3 fenofibrate (Tricor) 145 MG tablet, Take 1 tablet by mouth daily., Disp: 30 tablet, Rfl: 5 Fenofibrate 150 MG capsule, Take 1 capsule by mouth daily., Disp: , Rfl: furosemide (Lasix) 20 MG tablet, Take 1 tablet by mouth daily., Disp: , Rfl: hydrocortisone 2.5 % ointment, APPLY OINTMENT EXTERNALLY TWICE DAILY, Disp: 29 g, Rfl: 0 ipratropium-albuterol (Duo-Neb) 0.5-2.5 mg/3 mL nebulizer solution, Take 3 mL by nebulization every4 to 6 hours as needed for wheezing or shortness of breath., Disp: 180 mL, Rfl: 1 levothyroxine (Synthroid, Levoxyl) 112 MCG tablet, Take 1 tablet by mouth daily., Disp: 90 tablet, Rfl: 0 mometasone-formoterol (Dulera [...] or split., Disp: 90 tablet, Rfl: 3 timolol (Timoptic) 0.25 % ophthalmic solution, Administer 1 drop into both eyes 2 times a day., Disp: , Rfl: traMADol (Ultram) 50 MG tablet, Take 1 tablet by mouth every 8 hours as needed for severe pain., Disp: 10 tablet, Rfl: 0 valACYclovir (Valtrex) 500 MG tablet, Take 1 tablet by mouth daily as needed (cold sore)., Disp: 30tablet, Rfl: 0 azithromycin (Zithromax) 250 MG tablet, Take 2 tabs (500 mg) by mouth today, than 1 daily for 4 days., Disp: 6 tablet, Rfl: 0 predniSONE (Deltasone) 20 MG tablet, Take 2 tablets by mouth daily for 5 days., Disp: 10 tablet, Rfl: 0 documented in this encounter Plan of Treatment Upcoming Encounters Date Type Department Care Team (Late st Contact Info) Description 08/23/2025 1:15 PM EST Office Visit Obstetrics & Gynecology [address] [place] [address] Rafael Ravi MD [address] [place] [address] documented as of this encounter Visit Diagnoses Diagnosis Acute bronchitis due to other specified organisms- Primary documented in this encounter Additional Health Concerns Infection Onset Date Last Indicated Resolved Time MRSA 11/19/2021 11/19/2021 Assessment Noted Time PHQ-9 Depression Total Score: 6 11/24/19 2:15 PM EDT A fall risk assessment has been complete d for the patient 06/25/2025 10:23 AM EDT A Body Mass Index follow-up plan has been documented for the patient 06/25/2025 10:36 AM EDT documented as of this encounter Care Teams Geography Instructor Relationship Specialty Start Date End Date Sandy Cooper APRN [address] [place] [address] PCP - General 01/17/21 Emili Foster Clinical Weigher Packing 05/21/25 06/25/25 documented as of this encounter
--- OUTSIDE RECORDS SUMMARY | 2025-07-16 11:30 | XMS_ITS | Encounter Summary ---
Author Organization Healthcare Address [address] [place] [address] Care Team Providers Care Prepress Proofer Name Role Phone KennethSandy STEPHENIE Primary Care Provider [phone] Laura Tinajero COMPUTER OPERATIONS ANALYST Unavailable Unavailable Carmen Mcleod COMPUTER OPERATIONS ANALYST Unavailable Unavailabl e Emili Foster Unavailable Unavailabl e Encounter Details Date Type Department Care Team ([facility] Contact Info) Description 09/29/2021 Outside Procedure External Location [address] [place] [address] Provider, [facility] Social History Tobacco Use Types Packs/Day Years Used Date Smoking Tobacco: Former Cigarettes 0.5 20 1 965 - 1985 Smokeless Tobacco: Never Alcohol Use Standard Drinks/Week Comments Never 0 (1 standard drink = 0.6 oz pur e alcohol) PHQ-2 Answer Date Recorded Patient Health Questionnaire-2 Score 0 09/15/2021 Comments No Sex and Gender Information Value Date Recorded Sex Assigned at Not on file Legal Sex Female 8:22 PM EDT Gender Identity Not on file Sexual Orientation Not on file COVID-19 Exposure Response Date Recorded In the last month, have you been in contact with someone who was confirmed or suspected to have Coronavirus / COVID-19? No / Unsure 10/02/2021 9:53 AM EST documented as of this encounter Plan of Treatment Upcoming Encounters Date Type Department Care Team ([facility] Contact Info) Description 08/23/2025 1:15 PM EST Office Visit Obstetrics & Gynecology [address] [place] [address] Rafael Ravi MD [address] [place] [address] documented as of this encounter Procedures Procedure Name Priority Date/Time Associated Diagnosis Comments FL UPPER GI W DOUBLE CONTRAST 09/29/2021 7:43 AM EST documented in this encounter Results * FL Upper GI w Double Contrast (09/29/2021 7:43 AM EST) Anatomical Region Laterality Modality Esophagus, stomach and duodenum Radiographic Imaging 09/29/2021 7:43 AM EST Narrative 09/29/2021 10:52 AM EST [address] [place] [address] Name: OMER CHAVIRA Exam Date: 09/29/2021 : 1950 Age 71 Gender: F Physician: SYDNEE MERCHANT Facility: [facility] Facility HSV: Outpatient Exam: UGI W/AIR W/O KUB UPPER GI HISTORY: Hiatal hernia The patient was administered barium contrast and gas producing crystals. Spot and overhead films were obtained. A 13 mm barium tablet passes easily through the esophagus into the stomach. The stomach is of normal size, shape and position. No gastric filling defects are seen. The duodenal bulb and sweep appear unremarkable. There is mild gastroesophageal reflux. There is esophageal dysmotility. There is a small hiatal hernia. Radiation dose: 128.74 mGy IMPRESSION: Small hiatal hernia with mild gastroesophageal reflux and esophageal dysmotility. Images reviewed, interpreted, and dictated by Dr. Srinath Portillo. Transcribed by Topher Rincon PA-C Dictated By: ASHA PORTILLO Transcribed By: Srinath Portillo Transcribed On: 09/29/2021 10:41 AM Electronically signed by: ASHA PORTILLO 09/29/2021 Thank you for referring OMER CHAVIRA to [facility]. Legally authenticated by BANDAR HERNANDEZ 2021-09-29 10:41:19 Procedure Note Provider, [facility] - 09/29/2021 [facility] [address] [place] [address] Name: OMER CHAVIRA Exam Date: 09/29/2021 : 1950 Age 71 Gender: F Physician: SYDNEE MERCHANT Facility: [facility] Facility HSV: Outpatient Exam: UGI W/AIR W/O KUB UPPER GI HISTORY: Hiatal hernia The patient was administered barium contrast and gas producing crystals.Spot and overhead films were obtained. A 13 mm barium tablet passes easilythrough the esophagus into the stomach. The stomach is of normal size, shape and position. No gastric fillingdefects are seen. The duodenal bulb and sweep appear unremarkable. There is mild gastroesophageal reflux. There is esophageal dysmotility. There is asmall hiatal hernia. Radiation dose: 128.74 mGy IMPRESSION: Small hiatal hernia with mild gastroesophageal reflux and esophageal dysmotility. Images reviewed, interpreted, and dictated by Dr. Srinath Portillo. Transcribedby Topher Rincon PA-C Dictated By: ASHA PORTILLO Transcribed By: Srinath Portillo Transcribed On: 09/29/2021 10:41 AM Electronically signed by: ASHA PORTILLO 09/29/2021 Thank you for referring OMER CHAVIRA to [facility]. Legally authenticated by BANDAR HERNANDEZ 2021-09-29 10:41:19 Generic [place] Provider IMG FLUOROSCOPY PROC EDURES Final Result documented in this encounter Visit Diagnoses Not on filedocumented in this encounter Additional Health Concerns Infection Onset Date Last Indicated Resolved Time COVID-19 Rule-Out 10/02/2021 10/02/2021 10/02/2021 6:28 PM EST MRSA 11/19/2021 11/19/2021 COVID-19 Rule-Out 11/23/2024 11/23/2024 11/24/2024 11:17 AM EDT Assessment Noted Time A fall risk assessment has been complete d for the patient 09/15/2021 1:26 PM EST documented as of this encounter Care Teams Prepress Proofer Relationship Specialty Start Date End Date Sandy Cooper APRN [address] [place] [address] PCP - General 01/17/21 Laura Tinajero LPN VALUE-[employer]ED [place] [address] TCM Nurse 10/20/22 10/21/22 Carmen Mcleod LPN VALUE-BASED TRANSFORMATION PROGRAM Licensed Practical Nurse 10/12/24 04/10/25 Emili Foster Clinical Hvac Instructor 05/21/25 06/25/25 documented as of this encounter
--- OUTSIDE RECORDS SUMMARY | 2025-07-16 11:31 | XMS_ITS | Encounter Summary ---
Author Organization Healthcare Address [address] [place] [address] Care Team Providers Care Geospatial Extractor Analysis Name Role Phone Sandy Cooper APRN Primary Care Provider [phone] Carmen Mcleod LPN Unavailable Unavailabl e Emili Foster Unavailable Unavailabl e Encounter Details Date Type Department Care Team (Late st Contact Info) Description 05/28/2023 Outside Procedure External Location [address] [place] [address] Provider, [facility] [place] Social History Tobacco Use Types Packs/Day Years Used Date Smoking Tobacco: Former Cigarettes 1 - 1981 Passive Smoke Exposure: Never Smokeless Tobacco: Never Alcohol Use Standard Drinks/Week Comments Never 0 (1 standard drink = 0.6 oz pur e alcohol) PHQ-2 Answer Date Recorded Patient Health Questionnaire-2 Score 2 05/31/2023 PHQ-2A Answer Date Recorded Patient Health Questionnaire-2 [...] Little interest or pleasure in doing things Several days 05/31/2023 1:47 PM EDT Thelma Rocha Feeling down, depressed, or hopeless Several days 05/31/2023 1:47 PM EDT Thelma Rocha Patient Health Questionnaire -2 Score 2 05/31/2023 1:47 PM EDT Thelma Rocha * How difficult have these problems made it for you to do your work, take care of things at home, or get along with other people? Answer Date of Assessment Author Somewhat difficult 05/31/2023 1:47 PM EDT Thelma Caballero documented as of this encounter Plan of Treatment Upcoming Encounters Date Type Department Care Team (Late st Contact Info) Description 08/23/2025 1:15 PM EST Office Visit Obstetrics & Gynecology [address] [place] [address] Rafael Ravi MD [address] [place] [address] documented as of this encounter Procedures Procedure Name Priority Date/Time Associated Diagnosis Comments XR CHEST 1 VIEW 05/28/2023 11:10 AM EDT documented in this encounter Results * XR Chest 1 View (05/28/2023 11:10 AM EDT) Anatomical Region Laterality Modality Chest Digital Radiogra phy 05/28/2023 11:1 0 AM EDT Narrative 05/28/2023 11:53 AM EDT [place] [id number] Name: OMER SUAREZ Exam Date: 05/28/2023 : 1950 Age 73 Gender: F Physician: IOANA KISER Facility: [facility] Facility HSV: Outpatient Exam: CHEST PORTABLE CHEST, 1 view HISTORY: Chest pain COMPARISON: None. FINDINGS: Bibasilar atelectasis. There is no evidence of effusion or other pleural disease. The mediastinum has a normal appearance. The cardiac silhouette is unremarkable. IMPRESSION: Bibasilar atelectasis. Dictated By: Cydney Yoon Transcribed By: Cydney Grace Transcribed On: 05/28/2023 11:41 AM Electronically signed by: Cydney Yoon 05/28/2023 Thank you for referring OMER SUAREZ to [facility]. Legally authenticated by TORO JOY 2023-05-28 11:41:23 Procedure Note Provider, [facility] - 05/28/2023 [address] [place] [address] Name: OMER SUAREZ Exam Date: 05/28/2023 : 1950 Age 73 Gender: F Physician: IOANA KISER Facility: [facility] Facility HSV: Outpatient Exam: CHEST PORTABLE CHEST, 1 view HISTORY: Chest pain COMPARISON: None. FINDINGS: Bibasilar atelectasis. There is no evidence of effusion or other pleural disease. The mediastinumhas a normal appearance. The cardiac silhouette is unremarkable. IMPRESSION: Bibasilar atelectasis. Dictated By: Cydney Yoon Transcribed By: Cydney Grace Transcribed On: 05/28/2023 11:41 AM Electronically signed by: Cydney Yoon 05/28/2023 Thank you for referring OMER SUAREZ to [facility]. Legally authenticated by TORO JOY 2023-05-28 11:41:23 Generic [place] Provider IMG XR PROCEDURES Fi nal Result documented in this encounter Visit Diagnoses Not on filedocumented in this encounter Additional Health Concerns Infection Onset Date Last Indicated Resolved Time MRSA 11/19/2021 11/19/2021 COVID-19 Rule-Out 11/23/2024 11/23/2024 11/24/2024 11:17 AM EDT Assessment Noted Time PHQ-9 Depression Total Score: 21 022 3:03 PM EST A fall risk assessment has been complete d for the patient 03/23/2023 1:31 PM EDT A Body Mass Index follow-up plan has been documented for the patient 03/27/2023 2:14 PM EDT documented as of this encounter Care Teams Geospatial Extractor Analysis Relationship Specialty Start Date End Date Sandy Cooper, ASSOCIATE BUSINESS ANALYST [address] [place] [address] PCP - General 01/17/21 Carmen Mcleod LPN VALUE-BASED TRANSFORMATION PROGRAM Licensed Practical Nurse 10/12/24 04/10/25 Emili Foster Clinical Accounts Collector 05/21/25 06/25/25 documented as of this encounter
--- OUTSIDE RECORDS SUMMARY | 2025-07-16 11:31 | XMS_ITS | Encounter Summary ---
Author Organization Healthcare Address [address] [place] [address] Care Team Providers Care Aircraft Machinist Name Role Phone KennethSandy STEPHENIE Primary Care Provider [phone] Laura Tinajero TEXTILE SCIENCE TECHNICIAN Unavailable Unavailable Carmen Mcleod TEXTILE SCIENCE TECHNICIAN Unavailable Unavailabl e Emili Foster Unavailable Unavailabl e Encounter Details Date Type Department Care Team (Late Contact Info) Description 10/17/2022 Outside Procedure External Location [address] [place] [address] Provider, [facility] Social History Tobacco Use Types Packs/Day Years Used Date Smoking Tobacco: Former Cigarettes 1 25 09 965 - 1981 Passive Smoke Exposure: Never Smokeless Tobacco: Never Alcohol Use Standard Drinks/Week Comments Never 0 (1 standard drink = 0.6 oz pur e alcohol) PHQ-2 Answer Date Recorded Patient Health Questionnaire-2 Score 0 09/14/2022 Comments No Sex and Gender Information Value Date Recorded Sex Assigned at Not on file Legal Sex Female 8:22 PM EDT Gender Identity Not on file Sexual Orientation Not on file COVID-19 Exposure Response Date Recorded In the last 10 days, have yo u been in contact with someone who was confirmed or suspected to have Coronavirus/COVID-19? No / Unsure 10/01/2022 10:09 AM EST documented as of this encounter Plan of Treatment Upcoming Encounters Date Type Department Care Team (Late Contact Info) Description 08/23/2025 1:15 PM EST Office Visit Obstetrics & Gynecology [address] [place] [address] Rafael Ravi MD [address] [place] [address] documented as of this encounter Procedures Procedure Name Priority Date/Time Associated Diagnosis Comments CT ANGIO CHEST 10/17/2022 5:23 PM EST documented in this encounter Results * CT Angio Chest (10/17/2022 5:23 PM EST) Anatomical Region Laterality Modality Chest Computed Tomogra phy 10/17/2022 5:23 PM EST Generic [place] Provider IMG CT PROCEDURES Fi nal Result documented in this encounter Visit Diagnoses Not on filedocumented in this encounter Additional Health Concerns Infection Onset Date Last Indicated Resolved Time MRSA 11/19/2021 11/19/2021 COVID-19 Rule-Out 11/23/2024 11/23/2024 11/24/2024 11:17 AM EDT Assessment Noted Time PHQ-9 Depression Total Score: 022 3:03 PM EST A fall risk assessment has been complete d for the patient 09/14/2022 1:35 PM EST A Body Mass Index follow-up plan has been documented for the patient 10/01/2022 7:18 PM EST documented as of this encounter Care Teams Aircraft Machinist Relationship Specialty Start Date End Date Sandy Cooper APRN [address] [place] [address] PCP - General 01/17/21 Laura Tinajero LPN VALUE-BASED [place] [address] TCM Nurse 10/20/22 10/21/22 Carmen Mcleod LPN VALUE-BASED TRANSFORMATION PROGRAM Licensed Practical Nurse 10/12/24 04/10/25 Emili Foster Clinical Steam Shovel Runner 05/21/25 06/25/25 documented as of this encounter
--- OUTSIDE RECORDS SUMMARY | 2025-07-16 11:31 | XMS_ITS | Encounter Summary ---
Author Organization Healthcare Address [address] [place] [address] Care Team Providers Care Timber Appraiser Name Role Phone Sandy Cooper APRN Primary Care Provider [phone] Carmen Mcleod LPN Unavailable Unavailabl e Emili Foster Unavailable Unavailabl e Encounter Details Date Type Department Care Team (Late st Contact Info) Description 01/11/2023 Outside Procedure External Location [address] [place] [address] Lakeisha Hinojosa, BRUSH FINISHER [address] [place] [address] Social History Tobacco Use Types Packs/Day Years Used Date Smoking Tobacco: Former Cigarettes 1 25 09 965 - 1981 Passive Smoke Exposure: Never Smokeless Tobacco: Never Alcohol Use Standard Drinks/Week Comments Never 0 (1 standard drink = 0.6 oz pur e alcohol) PHQ-2 Answer Date Recorded Patient Health Questionnaire-2 Score 0 01/11/2023 Comments No Sex and Gender Information Value [...] pleasure in doing things Not at all 01/11/2023 3:15 PM EDT Selene Aguero Feeling down, depressed, or hopeless Not at all 04/2023 3:15 PM EDT Selene Aguero Patient Health Questionnaire-2 Score 0 04/2023 3:15 PM EDT Selene Aguero documented as of this encounter Plan of Treatment Upcoming Encounters Date Type Department Care Team (Late st Contact Info) Description 08/23/2025 1:15 PM EST Office Visit Obstetrics & Gynecology [address] [place] [address] Rafael Ravi MD [address] [place] [address] documented as of this encounter Procedures Procedure Name Priority Date/Time Associated Diagnosis Comments XR SHOULDER RIGHT 2+ VIEWS 01/11/2023 4:16 PM EDT documented in this encounter Results * XR Shoulder Right 2+ Views (01/11/2023 4:16 PM EDT) Anatomical Region Laterality Modality Upper Extremities, Shoulder Right Digi addie Radiography 01/11/2023 4:16 PM EDT Narrative 01/11/2023 5:16 PM EDT [address] [address] Name: OMER SUAREZ Exam Date: 01/11/2023 : 1950 Age 72 Gender: F Physician: LAKEISHA HINOJOSA Facility: [facility] Facility HSV: Outpatient Exam: SHOULDER COMP MIN 2 VWS RT Right shoulder THREE VIEW HISTORY: Pain. FINDINGS: Three views show no evidence of an acute, displaced fracture or dislocation of the visualized bony architecture. Mild to moderate degenerative changes are present. There is a loose body along the superior aspect of the acromioclavicular joint. If warranted consider further evaluation with MRI. IMPRESSION: No acute osseous changes. Dictated By: HOLLY TRUONG Transcribed By: Holly Truong Transcribed On: 01/11/2023 5:05 PM Electronically signed by: HOLLY TRUONG 01/11/2023 Thank you for referring OMER SUAREZ to [facility]. Legally authenticated by POPE HOLLY Arnold 2023-01-11 17:05:27 Procedure Note Provider, Generic [place] - 01/11/2023 [facility] [address] [place] [address] Name: OMER SUAREZ Exam Date: 01/11/2023 : 1950 Age 72 Gender: F Physician: LAKEISHA HINOJOSA Facility: [facility] Facility HSV: Outpatient Exam: SHOULDER COMP MIN 2 VWS RT Right shoulder THREE VIEW HISTORY: Pain. FINDINGS: Three views show no evidence of an acute, displaced fractureor dislocation of the visualized bony architecture. Mild to moderatedegenerative changes are present. There is a loose body along the superior aspect ofthe acromioclavicular joint. If warranted consider further evaluation withMRI. IMPRESSION: No acute osseous changes. Dictated By: HOLLY TRUONG Transcribed By: Holly Truong Transcribed On: 01/11/2023 5:05 PM Electronically signed by: HOLLY TRUONG 01/11/2023 Thank you for referring OMER SUAREZ to [facility]. Legally authenticated by POPE HOLLY Arnold 2023-01-11 17:05:27 Lakeisha Hinojosa APRN IMG XR PROCEDURES Final R esult documented in this encounter Visit Diagnoses Not on filedocumented in this encounter Additional Health Concerns Infection Onset Date Last Indicated Resolved Time MRSA 11/19/2021 11/19/2021 COVID-19 Rule-Out 11/23/2024 11/23/2024 11/24/2024 11:17 AM EDT Assessment Noted Time PHQ-9 Depression Total Score: 21 07/28/2 022 3:03 PM EST A fall risk assessment has been complete d for the patient 01/11/2023 3:15 PM EDT A Body Mass Index follow-up plan has been documented for the patient 01/12/2023 9:40 AM EDT documented as of this encounter Care Teams Timber Appraiser Relationship Specialty Start Date End Date Sandy Cooper APRN [address] [place] [phone] PCP - General 01/17/21 Carmen Mcleod LPN VALUE-BASED TRANSFORMATION PROGRAM Licensed Practical Nurse 10/12/24 04/10/25 Emili Foster Clinical Ethics Manager 05/21/25 06/25/25 documented as of this encounter
--- OUTSIDE RECORDS SUMMARY | 2025-07-16 11:31 | XMS_ITS | Encounter Summary ---
Author Organization Healthcare Address [address] [place] [address] Care Team Providers Care Cigar Binder Name Role Phone Sandy Cooper APRN Primary Care Provider [phone] Carmen Mcleod LPN Unavailable Unavailabl e Emili Foster Unavailable Unavailabl e Reason for Visit * Reason Comments Med Refill Encounter Details Date Type Department Care Team (Late st Contact Info) Description 11/22/2023 Refill Family and Community Medicine [address] [place] [address] Sandy Cooper, SENIOR OR[employer] [address] SQL DEVELOPER [address] [place] [address] Neck pain Social History Tobacco Use Types Packs/Day Years Used Date Smoking Tobacco: Former Cigarettes 1 25 09 965 - 1981 Passive Smoke Exposure: Never Smokeless Tobacco: Never Alcohol Use Standard Drinks/Week Comments Never 0 (1 standard drink = 0.6 oz pur e alcohol) Humiliation, Afraid, Rape, and Kick questionnair e Answer Date Recorded Within the last year, have y ou been afraid of your partner or ex-partner? No 11/04/2023 Within the last year, have y ou been humiliated or emotionally abused in other ways by your partner or ex-partner? No Within the last year, have y ou been kicked, hit, slapped, or otherwise physically hurt by your partner or ex-partner? No 11/04/2023 Within the last year, have y ou been raped or forced to have any kind of sexual activity by your partner or ex-partner? No 11/04/2023 PHQ-2 Answer Date Recorded Patient Health Questionnaire-2 Score 0 10/05/2023 Hunger Vital Sign Answer Date Recorded Within the past 12 months, y ou worried that your food would run out before you got the money to buy more. Never true 11/04/19 24 Within the past 12 months, t he food you bought just didn't last and you didn't have money to get more. Never true 11/04/2023 PRAPARE - Transportation Answer Date Re corded In the past 12 months, has l ack of transportation kept you from medical appointments or from getting medications? No 10/08 In the past 12 months, has l ack of transportation kept you from meetings, work, or from getting things needed for daily living? No 11/04/2023 Housing Stability Vital Sign Answer Abhinav e Recorded In the last 12 months, was t here a time when you were not able to pay the mortgage or rent on time? No 11/04/2023 In the last 12 months, how many places have you lived? 1 11/04/2023 In the last 12 months, was t here a time when you did not have a steady place to sleep or slept in a custodial (including now)? No 11/04/2023 Utilities Answer Date Recorded In the past 12 months has th e electric, gas, oil, or water company threatened to shut off services in your home? No 11/04/2023 PHQ-2A Answer Date Recorded Patient Health Questionnaire-2 Score 2 05/31/2023 Comments No Sex and Gender Information Value Date Recorded Sex Assigned at Not on file Legal Sex Female 8:22 PM EDT Gender Identity Not on file Sexual Orientation Not on file documented as of this encounter Plan of Treatment Upcoming Encounters Date Type Department Care Team (Late st Contact Info) Description 08/23/2025 1:15 PM EST Office Visit Obstetrics & Gynecology [address] [address] Rafael Ravi MD [address] [address] documented as of this encounter Visit Diagnoses Diagnosis Neck pain Cervicalgia documented in this encounter Additional Health Concerns Infection Onset Date Last Indicated Resolved Time MRSA 11/19/2021 11/19/2021 COVID-19 Rule-Out 11/23/2024 11/23/2024 11/24/2024 11:17 AM EDT Assessment Noted Time PHQ-9 Depression Total Score: 022 3:03 PM EST A fall risk assessment has been complete d for the patient 11/04/2023 3:07 PM EST A Body Mass Index follow-up plan has been documented for the patient 11/04/2023 3:32 PM EST documented as of this encounter Care Teams Cigar Binder Relationship Specialty Start Date End Date Sandy Cooper APRN [address] [place] [address] PCP - General 01/17/21 Carmen Mcleod LPN VALUE-BASED TRANSFORMATION PROGRAM Licensed Practical Nurse 10/12/24 04/10/25 Emili Foster Clinical Wire Stitcher 05/21/25 06/25/25 documented as of this encounter
--- OUTSIDE RECORDS SUMMARY | 2025-07-16 11:31 | XMS_ITS | Encounter Summary ---
Author Organization Healthcare Address [address] [place] [address] Care Team Providers Care Technical Services Librarian Name Role Phone Sandy Cooper APRN Primary Care Provider [phone] Laura Tinajero SAFETY TEACHER Unavailable Unavailable Carmen Mcleod SAFETY TEACHER Unavailable Unavailabl e Emili Foster Unavailable Unavailabl e Reason for Visit * Reason Comments Med Refill Encounter Details Date Type Department Care Team (Late st Contact Info) Description 12/26/2021 Refill Family [facility] Community Medicine [address] [place] [address] Guerda Machuca APRN [address] [place] [address] Social History Tobacco Use Types Packs/Day Years Used Date Smoking Tobacco: Former Cigarettes 0.5 20 1 965 - 1985 Smokeless Tobacco: Never Alcohol Use Standard Drinks/Week Comments Never 0 (1 standard drink = 0.6 oz pur e alcohol) PHQ-2 Answer Date Recorded Patient Health Questionnaire-2 Score 0 11/12/2021 Comments No Sex and Gender Information Value Date Recorded Sex Assigned at Not on file Legal Sex Female 8:22 PM EDT Gender Identity Not on file Sexual Orientation Not on file COVID-19 Exposure Response Date Recorded In the last 10 days, have yo u been in contact with someone who was confirmed or suspected to have Coronavirus/COVID-19? No / Unsure 12/26/2021 2:27 PM EDT documented as of this encounter Miscellaneous Notes * Telephone Encounter - Guerda Machuca APRN - 12/31/2021 8:37 AM EDT Can send 3 month supply. Will be due for physical/labs with Sandy in March. * Telephone Encounter - Radu Brand - 12/30/2021 4:33 PM EDT Refill request does not meet protocol. Sending to clinic for review. Additional info: I can't find any recent dictation about the medicine. Please advise if appropriateto fill documented in this encounter Plan of Treatment Upcoming Encounters Date Type Department Care Team (Late st Contact Info) Description 08/23/2025 1:15 PM EST Office Visit Obstetrics & Gynecology [address] [place] [address] Raafel Ravi MD [address] [place] [address] documented as of this encounter Visit Diagnoses Not on filedocumented in this encounter Additional Health Concerns Infection Onset Date Last Indicated Resolved Time MRSA 11/19/2021 11/19/2021 COVID-19 Rule-Out 11/23/2024 11/23/2024 11/24/2024 11:17 AM EDT Assessment Noted Time A fall risk assessment has been complete d for the patient 12/26/2021 2:39 PM EDT documented as of this encounter Care Teams Technical Services Librarian Relationship Specialty Start Date End Date Sandy Cooper APRN [address] [place] [id number] PCP - General 01/17/21 Laura Tinajero LPN VALUE-BASED [place] [address] TCM Nurse 10/20/22 10/21/22 Carmen Mcleod LPN VALUE-BASED TRANSFORMATION PROGRAM Licensed Practical Nurse 10/12/24 04/10/25 Emili Foster Clinical Airplane Coverer 05/21/25 06/25/25 documented as of this encounter
--- OUTSIDE RECORDS SUMMARY | 2025-07-16 11:31 | XMS_ITS | Encounter Summary ---
Author Organization Healthcare Address [address] [place] [address] Care Team Providers Care Case Reviewer Name Role Phone Sandy Cooper APRN Primary Care Provider [phone] Carmen Mcleod LPN Unavailable Unavailabl e Emili Foster Unavailable Unavailabl e Encounter Details Date Type Department Care Team (Late st Contact Info) Description 08/24/2024 Outside Procedure External Location [address] [place] [address] Provider, [facility] Social History Tobacco Use Types Packs/Day Years [...] afraid of your partner or ex-partner? No 07/27/2024 Within the last year, have y ou been humiliated or emotionally abused in other ways by your partner or ex-partner? No Within the last year, have y ou been kicked, hit, slapped, or otherwise physically hurt by your partner or ex-partner? No 07/27/2024 Within the last year, have y ou been raped or forced to have any kind of sexual activity by your partner or ex-partner? No 07/27/2024 PHQ-2 Answer Date Recorded Patient Health Questionnaire-2 Score 3 07/27/2024 Hunger Vital Sign Answer Date Recorded Within the past 12 months, y ou worried that your food would run out before you got the money to buy more. Never true 07/27/20 24 Within the past 12 months, t he food you bought just didn't last and you didn't have money to get more. Never true 07/27/2024 PRAPARE - Transportation Answer Date Re corded In the past 12 months, has l ack of transportation kept you from medical appointments or from getting medications? No 07/08 In the past 12 months, has l ack of transportation kept you from meetings, work, or from getting things needed for daily living? No 07/27/2024 Housing Stability Vital Sign Answer Abhinav e [...] place to sleep or slept in a residential (including now)? No 11/04/2023 PHQ-9 Answer Date Recorded Patient Health Questionnaire-9 Score 17 07/27/2024 Housing Stability Vital Sign Answer Abhinav e Recorded In the last 12 months, was t here a time when you were not able to pay the mortgage or rent on time? No 07/27/2024 In the past 12 months, how m any times have you moved where you were living? 1 07/27/2024 At any time in the past 12 m [facility], were you homeless or living in a residential (including now)? No 07/27/2024 Safety and Environment Answer Date Benny rded Do you worry that your child may have been physically abused? No 07/27/2024 Do you worry that your child may have been sexua lly abused? No 07/27/2024 Are there any guns kept in o r around your home or where your child spends time? No 07/27/2024 Guns Unloaded or Locked Away Not on file Utilities Answer Date Recorded In the past 12 months has th e electric, gas, oil, or water company threatened to shut off services in your home? No 07/27/2024 PHQ-2A Answer Date Recorded Patient Health Questionnaire-2 [...] EST Office Visit Obstetrics & Gynecology [address] [place] [address] Rafael Ravi MD [address] [place] [address] documented as of this encounter Procedures Procedure Name Priority Date/Time Associated Diagnosis Comments XR CHEST 1 VIEW 08/24/2024 4:05 AM EST documented in this encounter Results * XR Chest 1 View (08/24/2024 4:05 AM EST) Anatomical Region Laterality Modality Chest Digital Radiogra phy 08/24/2024 4:05 AM EST Narrative 08/24/2024 5:15 AM EST [id number] [place] [address] Name: OMER SUAREZ Exam Date: 08/24/2024 : 1950 Age 74 years Gender: F Physician: ERI NINA Facility: [facility] Facility HSV: Outpatient Exam: CHEST PORTABLE FINAL REPORT TECHNIQUE: null CLINICAL HISTORY: Dyspnea COMPARISON: null FINDINGS: 1 view chest x-ray Comparison: DX/DOC - CHEST PORTABLE - 05/28/23 11:19 EDT Findings: There is an unchanged small calcified granuloma at the left lung apex. The lungs appear otherwise clear. There is no consolidation, effusion, or pneumothorax. Cardiomediastinal silhouette is within normal limits. IMPRESSION: IMPRESSION: No acute cardiopulmonary abnormality. Authenticated and [facility] Dictated By: Galen Foster Colin Transcribed By: Transcribed On: 08/24/2024 5:13 AM Electronically signed by: Galen Foster Colin 08/24/2024 Thank you for referring OMER SUAREZ to [facility]. Legally authenticated by EBONIE Núñez 2024-08-24 05:13:18 Procedure Note Provider, Terell Mcgrath - 08/24/2024 [place] [address] Name: OMER SUAREZ Exam Date: 08/24/2024 : 1950 Age 74 years Gender: F Physician: ERI NINA Facility: [facility] Facility HSV: Outpatient Exam: CHEST PORTABLE FINAL REPORT TECHNIQUE: null CLINICAL HISTORY: Dyspnea COMPARISON: null FINDINGS: 1 view chest x-ray Comparison: DX/DOC - CHEST PORTABLE - 05/28/23 11:19 EDT Findings: There is an unchanged small calcified granuloma at the left lung apex. The lungs appear otherwise clear. There is no consolidation, effusion, or pneumothorax. Cardiomediastinal silhouette is within normal limits. IMPRESSION: IMPRESSION: No acute cardiopulmonary abnormality. Authenticated and [facility] Dictated By: Galen Foster Colin Transcribed By: Transcribed On: 08/24/2024 5:13 AM Electronically signed by: Galen Foster Colin 08/24/2024 Thank you for referring OMER SUAREZ to [facility]. 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 COVID-19 Rule-Out 11/23/2024 11/23/2024 11/24/2024 11:17 AM EDT Assessment Noted Time PHQ-9 Depression Total Score: 17 024 2:25 PM EST A fall risk assessment has been complete d for the patient 07/27/2024 2:25 PM EST A Body Mass Index follow-up plan has been documented for the patient 07/27/2024 3:16 PM EST documented as of this encounter Care Teams Case Reviewer Relationship Specialty Start Date End Date Sandy Cooper APRN [address] [place] [address] PCP - General 01/17/21 Carmen Mcleod LPN VALUE-BASED TRANSFORMATION PROGRAM Licensed Practical Nurse 10/12/24 04/10/[address] Scan Special Procedures Technologist 05/21/25 06/25/25 documented as of this encounter
--- OUTSIDE RECORDS SUMMARY | 2025-07-16 11:31 | XMS_ITS | Encounter Summary ---
Author Organization Healthcare Address [address] [place] [address] Care Team Providers Care Head Concierge Name Role Phone Sandy Cooper APRN Primary Care Provider [phone] Carmen Mcleod LPN Unavailable Unavailabl e Emili Foster Unavailable Unavailabl e Encounter Details Date Type Department Care Team (Late st Contact Info) Description 11/10/2023 Outside Procedure External Location [address] [place] [address] Oscar Pearce MD [facility] [place] [address] Social History Tobacco Use Types Packs/Day Years Used Date Smoking Tobacco: Former Cigarettes 965 1981 Passive Smoke Exposure: Never Smokeless Tobacco: [...] place to sleep or slept in a correction (including now)? No 11/04/2023 Utilities Answer Date [...] Visit Obstetrics & Gynecology [address] [place] [address] Rafael Ravi MD [address] [place] [address] documented as of this encounter Procedures Procedure Name Priority Date/Time Associated Diagnosis Comments ECHO, ADULT TRANSTHORACIC COMPLETE W/ COLOR AND DOPPLER 11/10/2023 3:34 PM EST documented in this encounter Results * Echo, Adult Transthoracic Complete w/ Color and Doppler (11/10/2023 3:34 PM EST) Anatomical Region Laterality Modality Ultrasound 11/10/2023 3:34 PM EST Narrative 11/11/2023 10:27 AM EST [address] [address] Name: OMER SUAREZ Exam Date: 11/10/2023 : 1950 Age 73 years Gender: F Physician: OSCAR PEARCE Facility: [facility] Facility HSV: Outpatient Exam: ECHO W SPEC COLOR FLOW Reason for Study: Dyspnea SUMMARY Normal LV size with normal function. The ejection fraction is 65-70%. Normal diastolic function. Normal PA pressure (28 mmHg). INTERPRETATION DETAIL Fair quality study. Left ventricle: The left ventricle is normal in size with normal systolic function. The ejection fraction is 65-70%. There is top normal LV wall thickness. LV geometry is normal. The left ventricular wall motion is normal. Mitral filling indicates Normal diastolic function. Left atrium: The left atrium is normal. LA volume: 35.2mL, LA volume index: 18.0mL/mA. Right ventricle: The right ventricle is normal in size with normal function. Right atrium: The right atrium is normal. Mitral valve: There is no mitral stenosis. There is no mitral regurgitation. Aortic valve: The aortic valve is not well seen. There is with a valve area of 3.68 puff iron operator (Peak grad=9mmHg, Mean grad=5mmHg, LVOT nakul=2.30cm, LVOT TVI=23.2cm, Ao TVI=26.2cm). The dimensionless index is 0.89. AV peak ohklhlaj=985nf/sec. Tricuspid valve: The tricuspid valve is normal. There is trace tricuspid regurgitation. PASP= 28 mmHg, RAP=7mmHg. Pulmonic valve: The pulmonic valve is normal. Pericardium: The pericardium is normal. Pulmonary artery: The pulmonary artery is normal. Interatrial septum: The interatrial septum is normal. Aorta: The aorta is normal. The aortic root is normal. Aortic dimensions - Ao M-mode= 3.10cm, Ascending=2.95cm. Vena Cava: The inferior vena cava is normal. MEASUREMENTS Left Ventricle IVSd: 1.18cm (0.6-1.1cm) PWd: 1.18cm (0.6-1.1cm) Mass Lorri: 110g LVMI: 56g/mA (>50-95g/m) LVIDd: 3.08cm (3.7-5.6 cm) LVIDdI: 1.57cm/m2 LVIDs: 1.94cm (1.8-4.2 cm) LVIDsI: 0.99cm/m2 RWT: 0.77 (<0.42) E to A: 0.71 (0.6-2) E-e prime med: 12.00 E-e prime lat: 10.29 Decel: 267.00ms (168-232ms) Right Ventricle Mid RV Nakul: 3.2cm (2.7-3.3cm) Max Valve Velocities AV peak lynn: 148cm/sec LVOT: 137.00cm/sec Legally authenticated by [place] Espinal 2023-11-11 09:58:31 Pulmonary RAP: 7mmHg PASP: 28mmHg Atria LA AP: 3.7cm LA vol: 35.2mL MELISSA: 18.0mL/mA (16-28ml/m2) Oscar Pearce MD Dictated By: OSCAR PEARCE Transcribed By: Transcribed On: 11/11/2023 9:58 AM Electronically signed by: OSCAR PEARCE 11/11/2023 Thank you for referring OMER SUAREZ to [facility]. Legally authenticated by ALBANIA Espinla 2023-11-11 09:58:31 Procedure Note Provider, Generic [place] - 11/11/[address] [address] Name: OMER SUAREZ Exam Date: 11/10/2023 : 1950 Age 73 years Gender: F Physician: OSCAR PEARCE Facility: [facility] Facility HSV: Outpatient Exam: ECHO W SPEC COLOR FLOW Reason for Study: Dyspnea SUMMARY Normal LV size with normal function. The ejection fraction is 65-70%. Normal diastolic function. Normal PA pressure (28 mmHg). INTERPRETATION DETAIL Fair quality study. Left ventricle: The left ventricle is normal in size with normal systolic function. The ejection fraction is 65-70%. There is top normal LV wall thickness. LV geometry is normal. The left ventricular wall motion is normal. Mitral filling indicates Normal diastolic function. Left atrium: The left atrium is normal. LA volume: 35.2mL, LA volume index: 18.0mL/mA. Right ventricle: The right ventricle is normal in size with normal function. Right atrium: The right atrium is normal. Mitral valve: There is no mitral stenosis. There is no mitral regurgitation. Aortic valve: The aortic valve is not well seen. There is with a valve area of 3.68 puff iron operator (Peak grad=9mmHg, Mean grad=5mmHg, LVOT nakul=2.30cm, LVOT TVI=23.2cm, Ao TVI=26.2cm). The dimensionless index is 0.89. AV peak spaviack=024jh/sec. Tricuspid valve: The tricuspid valve is normal. There is trace tricuspid regurgitation. PASP= 28 mmHg, RAP=7mmHg. Pulmonic valve: The pulmonic valve is normal. Pericardium: The pericardium is normal. Pulmonary artery: The pulmonary artery is normal. Interatrial septum: The interatrial septum is normal. Aorta: The aorta is normal. The aortic root is normal. Aortic dimensions - Ao M-mode= 3.10cm, Ascending=2.95cm. Vena Cava: The inferior vena cava is normal. MEASUREMENTS Left Ventricle IVSd: 1.18cm (0.6-1.1cm) PWd: 1.18cm (0.6-1.1cm) Mass Lorri: 110g LVMI: 56g/mA (>50-95g/m) LVIDd: 3.08cm (3.7-5.6 cm) LVIDdI: 1.57cm/m2 LVIDs: 1.94cm (1.8-4.2 cm) LVIDsI: 0.99cm/m2 RWT: 0.77 (<0.42) E to A: 0.71 (0.6-2) E-e prime med: 12.00 E-e prime lat: 10.29 Decel: 267.00ms (168-232ms) Right Ventricle Mid RV Nakul: 3.2cm (2.7-3.3cm) Max Valve Velocities AV peak lynn: 148cm/sec LVOT: 137.00cm/sec Legally authenticated by [place] Espinal 2023-11-11 09:58:31 Pulmonary RAP: 7mmHg PASP: 28mmHg Atria LA AP: 3.7cm LA vol: 35.2mL MELISSA: 18.0mL/mA (16-28ml/m2) Oscar Pearce MD Dictated By: OSCAR PEARCE Transcribed By: Transcribed On: 11/11/2023 9:58 AM Electronically signed by: OSCAR PEARCE 11/11/2023 Thank you for referring OMER SUAREZ to [facility]. Legally authenticated by [place] Espinal 2023-11-11 09:58:31 Oscar Pearce MD CV ECHO PROCEDURES Final Resu lt documented in this encounter Visit Diagnoses Not [...] documented as of this encounter Care Teams Head Concierge Relationship Specialty Start Date End Date Sandy Cooper APRN [address] [place] [address] PCP - General 01/17/21 Carmen Mcleod LPN VALUE-BASED TRANSFORMATION PROGRAM Licensed Practical Nurse 10/12/24 04/10/25 Emili Foster Clinical Veterinary Dentist 05/21/25 06/25/25 documented as of this encounter
--- OUTSIDE RECORDS SUMMARY | 2025-07-16 11:31 | XMS_ITS | Encounter Summary ---
Author Organization Healthcare Address [address] [place] [address] Care Team Providers Care Orthotic/Prosthetic Practitioner Name Role Phone Sandy Cooper APRN Primary Care Provider [phone] Carmen Mcleod LPN Unavailable Unavailabl e Emili Foster Unavailable Unavailabl e Encounter Details Date Type Department Care Team (Late st Contact Info) Description 07/28/2024 Outside Procedure External Location [address] [place] [address] Henna Henry, ICE MAKER, DNP [address] [place] [address] Social History Tobacco Use Types [...] place to sleep or slept in a [place] (including now)? No 11/04/2023 PHQ-9 Answer Date [...] time in the past 12 m [facility], were you homeless or living in a [place] (including now)? No 07/27/2024 Safety and Environment [...] th e electric, gas, oil, or water [employer] threatened to shut off services in your [...] EST Office Visit Obstetrics & Gynecology [address] [place] [address] Rafael Ravi MD [address] [place] [address] documented as of this encounter Procedures Procedure Name Priority Date/Time Associated Diagnosis Comments XR ABDOMEN 2 VIEWS 07/28/2024 2: 53 PM EST documented in this encounter Results * XR Abdomen 2 Views (07/28/2024 2:53 PM EST) Anatomical Region Laterality Modality Body Digital Radiogra phy 07/28/2024 2:53 PM EST Narrative 07/29/2024 10:34 AM EST [address] [address] Name: OMER SUAREZ Exam Date: 07/28/2024 : 1950 Age 74 years Gender: F Physician: Henna Henry Facility: [facility] Facility HSV: Outpatient Exam: ABD FLAT UPRIGHT Abdomen 2 view HISTORY: Constipation. FINDINGS: Surgical clips from previous cholecystectomy. Lung bases well aerated. No definite free air within the abdomen. No renal calcifications. Moderate scattered fecal matter within the large bowel. Nonobstructive bowel gas pattern. IMPRESSION: Moderate retained fecal matter within the large bowel. No evidence for bowel obstruction. Electronically signed by:Praveen Olivares MD07/29/2024 10:31 AM EST RP Dictated By: Praveen Olivares Transcribed By: Transcribed On: 07/28/2024 3:17 PM Electronically signed by: Praveen Olivares 07/28/2024 Thank you for referring OMER SUAREZ to [facility]. Legally authenticated by BRI KIRKLAND 2024-07-28 15:17:59 Procedure Note Provider, [facility] 07/29/2024 [place] [address] Name: OMER SUAREZ Exam Date: 07/28/2024 : 1950 Age 74 years Gender: F Physician: Henna Henry Facility: [facility] Facility HSV: Outpatient Exam: ABD FLAT UPRIGHT Abdomen 2 view HISTORY: Constipation. FINDINGS: Surgical clips from previous cholecystectomy. Lung bases well aerated. No definite free air within the abdomen. No renalcalcifications. Moderate scattered fecal matter within the large bowel. Nonobstructivebowel gas pattern. IMPRESSION: Moderate retained fecal matter within the large bowel. Noevidence for bowel obstruction. Electronically signed by:Praveen Olivares MD07/29/2024 10:31 AM EST RP Dictated By: Praveen Olivares Transcribed By: Transcribed On: 07/28/2024 3:17 PM Electronically signed by: Praveen Olivares 07/28/2024 [facility] referring [facility]. Legally authenticated by BRI KIRKLAND 2024-07-28 15:17:59 us Henna Henry APRN, DNP IMG XR PROCEDURES Fin al Result documented in this encounter Visit Diagnoses [...] documented as of this encounter Care Teams Orthotic/Prosthetic Practitioner Relationship Specialty Start Date End Date Sandy Cooper APRN [address] [place] [address] PCP - General 01/17/21 Carmen Mcleod LPN VALUE-BASED TRANSFORMATION PROGRAM Licensed Practical Nurse 10/12/24 04/10/25 Emili Foster Clinical Asset Administrator 05/21/25 06/25/25 documented as of this encounter
--- OUTSIDE RECORDS SUMMARY | 2025-07-16 11:31 | XMS_ITS | Data Portability ---
Author Organization [facility] [place] [facility] ADMIN Address [address] [place] [address] Care Team Providers Care Central Scheduler Name Role Phone CHINENRIQUE Primary Care Provider Assessment No assessment recorded. Plan of Treatment Reminders Order Date Submit Date Provider Last Modified By Organization Details Last Modified Time Details Appointments None record ed. Lab None record ed. Referral None record ed. Procedures None record ed. Surgeries None record ed. Imaging None record ed. Medication Orders None record ed. Patient TargetsNo targets recorded. Patient InstructionsNo instructions recorded. Reason for Referral None Reported. Problems Name Problem SNOMED Code Status Onset Date Resolution Date Notes Provider Name and Address Organization Details Recorded Time Peripheral edema 239998147 Active 2023 Oscar Pearce MD [address], [place], [address] , [facility] & [place] 4 14:02:31 Hyperlipid emia 98175925 Active 2023 Oscar Pearce MD [address], [place], [address] , [facility] & [place] 4 14:07:48 Obstructiv e sleep apnea syndrome 17972115 Active 2023 Oscar Pearce MD [address], [place], [address] , [facility] & [place] 4 14:08:18 Dyspnea on exertion 21998032 Active 2023 Oscar Pearce MD [address], [place], [address] , [place] [facility] [place] & [place] 4 14:09:43 Gastroesop hageal reflux disease 871586612 Active 2023 Domenica cortes null, [place] [facility] [place] & [place] 4 15:27:45 Spinal enthesopat hy of cervical region Active 2023 Josie Boggs null, [place] [facility] [place] & [place] 4 11:28:24 Myofascial pain 843359245 Active 2023 Josie Boggs null, [place] [facility] [place] & [place] 4 11:28:24 Left tarsal tunnel syndrome [id number] 07 Active 2023 Josie Boggs null, [place] [facility] [place] & [place] 4 11:28:26 Abdominal pain 74519484 Active 2023 Josie Boggs null[place] [facility] [place] & [place] 4 11:28:43 Neck pain 82496531 Active 2023 Josie Boggs null, [place] [facility] [place] & [place] 4 11:30:10 Sensorineu ral hearing loss 50824123 Active 2023 MANUEL STRAUSS, AUD [address] [facility], [place], [address] , [place] [facility] [place] & [place] 4 11:18:02 Problem Notes None recorded. Procedures Surgical History Date Name Laterality Status Provider Name and Address Organization Details Recorded Time 024 Injection Only completed Josie Boggs [place] [facility] [place] & [place] 01/20/2024 15:42:58 024 Injection Only completed Josie Boggs [place] [facility] [place] & [place] 01/12/2024 14:42:54 023 Abdominal Surgery completed Yesi Martinez [place] - [facility] [place] & [place] 10/20/2023 13:34:23 022 completed Yesi Martinez [place] - [facility] [place] & [place] 10/20/2023 13:33:50 022 Date of Last Colonoscopy completed Yesi HANSEN - [facility] & [place] 10/20/2023 13:33:50 999 Cholecystectomy completed Yesi HANSEN - [facility] & [place] 10/20/2023 13:34:23 997 Date of Last Pap Smear completed Yesi York [facility] & [place] 10/20/2023 13:33:50 Other completed Yesi HANSEN - LP NT [facility] & [place] 10/20/2023 13:34:23 Hysterectomy completed Domenica HANSEN - [facility] & [place] 01/06/2024 15:28:33 Imaging Results None recorded. Procedure Notes None recorded. Medical Equipment None Reported. Allergies Allergen ID Allergen Name Allergen Category Reaction Reaction Severity Criticality Documentation Date Start Date Code Code System Note Provider Name and Address Organization Details Recorded Time 340201 Substance with sulfonami de structure and antibacte rial mechanism of action (substanc e) medicatio n Not available Not available Not available 10/20/2023 46789 8003 SNOMED Yesi Martinez [facility], [place] [facility] & [place] 4 13:34:42 254654 codeine medicatio n Not available Not available Not available 12/22/2023 2670 RxNorm Olivia Pisano APRN [address] , [place], [address] [place] [address] & [place] 4 17:01:04 Medications Name Sig Start Date Stop Date Status Note LastModified by Organization Details LastModified Time celecoxib 200 mg capsule TAKE 1 CAPSULE BY MOUTH TWICE DAILY active Not Available Not Available No t Available cyclobenzap rine 10 mg tablet TAKE 1 TABLET BY MOUTH THREE TIMES DAILY NEEDED FOR MUSCLE SPASM 08/15 completed Not Available Not Available Not Available latanoprost 0.005 % eye drops INSTILL 1 DROP INTO EACH EYE AT BEDTIME active Not Available Not Available No t Available methocarbam ol 500 mg tablet TAKE 1 TABLET BY MOUTH 4 TIMES DAILY NEEDED FOR MUSCLE SPASM active Not Available Not Available No t Available buspirone 5 mg tablet TAKE 1 TO 2 TABLETS BY MOUTH THREE TIMES DAILY NEEDED FOR ANXIETY FOR 3 DAYS 01/05 completed Not Available Not Available Not Available terconazole 0.4 % vaginal cream INSERT 1 APPLICATO RFUL VAGINALLY NIGHTLY FOR 7 DAYS active Not Available Not Available No t Available venlafaxine ER 37.5 mg capsule,ext ended release 24 hr TAKE 1 CAPSULE BY MOUTH ONCE DAILY DIRECTED - DO NOT CRUSH OR CHEW 10/20 completed Not Available Not Available Not Available Protonix 40 mg tablet,sharri yed release TAKE 1 TABLET BY MOUTH EVERY DAY IN THE MORNING. DO NOT CRUSH, CHEW, OR SPLIT active Not Available Not Available No t Available doxycycline hyclate 100 mg capsule TAKE 1 CAPSULE BY MOUTH TWICE DAILY FOR 10 DAYS TAKE WITH AT LEAST 8 OUNCES OF WATER. DO NOT LIE DOWN FOR 30 MINUTES AFTER 10/20 completed Not Available Not Available Not Available ipratropium 0.5 mg-albutero l 3 mg (2.5 mg base)/3 mL nebulizatio n soln USE 1 AMPULE IN NEBULIZER EVERY 4 TO 6 HOURS NEEDED FOR WHEEZING FOR SHORTNESS OF BREATH active Not Available Not Available No t Available azithromyci n 250 mg tablet TAKE 2 TABLETS BY MOUTH TODAY, THEN TAKE 1 TABLET DAILY FOR 4 DAYS DIRECTED active Not Available Not Available No t Available tizanidine 4 mg tablet TAKE 1 TABLET BY MOUTH EVERY 6 HOURS NEEDED FOR MUSCLE SPASMS 01/05 completed Not Available Not Available Not Available fluconazole 150 mg tablet TAKE 1 TABLET BY MOUTH DIRECTED 10/20 completed Not Available Not Available Not Available benzonatate 200 mg capsule Take 1 capsule 3 times a day by oral route as needed for 5 days. 10/20 completed Not Available Not Available Not Available cimetidine 400 mg tablet TAKE 1 TABLET BY MOUTH ONCE DAILY AT NIGHT 10/20 completed Not Available Not Available Not Available hydrocodone 5 mg-acetamin ophen 325 mg tablet TAKE 1 TABLET BY MOUTH THREE TIMES DAILY 10/20 completed Not Available Not Available Not Available phenazopyri dine 200 mg tablet Take 1 tablet 3 times a day by oral route. active Not Available Not Available No t Available ondansetron HCl 4 mg tablet 10/20 completed Not Available Not Available Not Available prednisone 20 mg tablet TAKE 2 TABLETS BY MOUTH EVERY DAY FOR 5 DAYS active Not Available Not Available No t Available fluorouraci l 5 % topical cream 10/20 completed Not Available Not Available Not Available benzoyl peroxide 10 % topical cleanser USE TO WASH BODY EXTERNALL Y ONCE DAILY IN THE SHOWER. RINSE WELL 01/05 completed Not Available Not Available Not Available clobetasol 0.05 % topical cream APPLY CREAM TOPICALLY TO AFFECTED AREAS TWICE DAILY NEEDED FOR FLARES AVOID FACE AND GROIN (1-2 GRAMS DAILY) active Not Available Not Available No t Available penicillin V potassium 500 mg tablet 10/20 completed Not Available Not Available Not Available metronidazo le 500 mg tablet TAKE 1 TABLET BY MOUTH TWICE DAILY FOR 7 DAYS 06/27 completed Not Available Not Available Not Available valacyclovi r 500 mg tablet TAKE 1 TABLET BY MOUTH ONCE DAILY NEEDED active Not Available Not Available No t Available sulfamethox azole 800 mg-trimetho prim 160 mg tablet TAKE 1 TABLET BY MOUTH TWICE DAILY FOR 7 DAYS 10/20 completed Not Available Not Available Not Available tramadol 50 mg tablet TAKE 1 TABLET BY MOUTH EVERY 8 HOURS NEEDED FOR SEVERE PAIN active Not Available Not Available No t Available prednisone 10 mg tablets in a dose pack TAKE DIRECTED 10/20 completed Not Available Not Available Not Available levothyroxi ne 100 mcg tablet TAKE 1 TABLET BY MOUTH ONCE DAILY active Not Available Not Available No t Available clindamycin 1 % topical gel APPLY THIN LAYER TOPICALLY TO AFFECTED AREA ONCE DAILY 06/27 completed Not Available Not Available Not Available baclofen 10 mg tablet TAKE 1 TABLET BY MOUTH THREE TIMES DAILY NEEDED 08/15 completed Not Available Not Available Not Available timolol maleate 0.25 % eye drops INSTILL 1 DROP INTO EACH EYE TWICE DAILY active Not Available Not Available No t Available desloratadi ne 5 mg tablet 10/20 completed Not Available Not Available Not Available oseltamivir 75 mg capsule TAKE 1 CAPSULE BY MOUTH IN THE MORNING AND 1 AT BEDTIME FOR 5 DAYS active Not Available Not Available No t Available calcipotrie ne 0.005 % topical cream APPLY TO PSORIAISI S TWICE DAILY DURING BREAK FROM HALOBETAS OL 08/15 completed Not Available Not Available Not Available halobetasol propionate 0.05 % topical ointment APPLY OINTMENT TO RASH ON LEG TWICE DAILY FOR UP TO 3 WEEKS THEN TAKE ONE WEEK BREAK - REPEAT NEEDED - AVOID USE ONE FACE GROIN AND UNDERARMS 08/15 completed Not Available Not Available Not Available brimonidine 0.2 % eye drops INSTILL 1 DROP INTO EACH EYE EVERY 12 HOURS active Not Available Not Available No t Available montelukast 10 mg tablet TAKE 1 TABLET BY MOUTH ONCE DAILY AT NIGHT 10/20 completed Not Available Not Available Not Available hydroxyzine HCl 25 mg tablet TAKE 1 TABLET BY MOUTH THREE TIMES DAILY FOR 7 DAYS 08/15 completed Not Available Not Available Not Available mupirocin 2 % topical ointment APPLY A SMALL AMOUNT TO THE AFFECTED AREA BY TOPICAL ROUTE 3 TIMES PER DAY active Not Available Not Available No t Available furosemide 20 mg tablet TAKE 1 TABLET BY MOUTH ONCE DAILY active Not Available Not Available No t Available ergocalcife rol (vitamin D2) 1,250 mcg (50,000 unit) capsule TAKE 1 CAPSULE BY MOUTH ONCE A WEEK 10/20 completed Not Available Not Available Not Available clobetasol 0.05 % topical ointment APPLY TO PSORIASIS TWICE DAILY FOR 3 WEEKS,THE N TAKE 1 WEEK BREAK,REP EAT NEEDED DO NOT USE ON FACE GROIN,AND UNDERARMS 10/20 completed Not Available Not Available Not Available azelastine 137 mcg (0.1 %) nasal spray USE 1 SPRAY(S) IN EACH NOSTRIL TWICE DAILY DIRECTED active Not Available Not Available No t Available epinephrine 0.3 mg/0.3 mL injection, auto-inject or INJECT CONTENTS OF 1 PEN NEEDED FOR ALLERGIC REACTION 01/05 completed Not Available Not Available Not Available prednisone 5 mg tablets in a dose pack TAKE 6 TABLETS ON DAY 1 DIRECTED ON PACKAGE AND DECREASE BY 1 TAB EACH DAY FOR A TOTAL OF 6 DAYS 08/15 completed Not Available Not Available Not Available ibuprofen 600 mg tablet 01/05 completed Not Available Not Available Not Available fluocinonid e 0.05 % topical solution APPLY SOLUTION TOPICALLY TO SCALP ONCE DAILY active Not Available Not Available No t Available estradiol 0.01% (0.1 mg/gram) vaginal cream INSERT 2 GRAMS VAGINALLY EVERY OTHER DAY AT BEDTIME active Not Available Not Available No t Available levofloxaci n 750 mg tablet TAKE 1 TABLET BY MOUTH ONCE DAILY ON 10/20/22 - 10/22/2210/20 completed Not Available Not Available Not Available methylpredn isolone 4 mg tablets in a dose pack TAKE BY MOUTH DIRECTED ON INSIDE OF PACKAGE 08/15 completed Not Available Not Available Not Available timolol maleate 0.5 % eye drops INSTILL 1 DROP INTO EACH EYE ONCE DAILY IN THE MORNING 08/15 completed Not Available Not Available Not Available hydrocortis one 2.5 % topical ointment APPLY OINTMENT EXTERNALL Y TO AFFECTED AREA ONCE DAILY active Not Available Not Available No t Available bromphenira mine-pseudo ephedrine-D M 2 mg-30 mg-10 mg/5 mL oral syrup TAKE 10 ML BY MOUTH EVERY 6 TO 8 HOURS NEEDED FOR COUGH AND CONGESTIO N active Not Available Not Available No t Available cefdinir 300 mg capsule TAKE 1 CAPSULE BY MOUTH TWICE DAILY FOR 10 DAYS 08/15 completed Not Available Not Available Not Available fluticasone propionate 50 mcg/actuati on nasal spray,suspe nsion USE 1 SPRAY(S) IN EACH NOSTRIL TWICE DAILY. SHAKE GENTLY. BEFORE FIRST USE, PRIME PUMP. AFTER USE, CLEAN TIP AND REPLACE CAP active Not Available Not Available No t Available brimonidine 0.15 % eye drops active Not Available Not Available Not Available levothyroxi ne 112 mcg tablet TAKE 1 TABLET BY MOUTH ONCE DAILY active Not Available Not Available No t Available amoxicillin 875 mg-potassiu m clavulanate 125 mg tablet TAKE 1 TABLET BY MOUTH TWICE DAILY FOR 10 DAYS 08/15 completed Not Available Not Available Not Available amoxicillin 500 mg-potassiu m clavulanate 125 mg tablet 10/20 completed Not Available Not Available Not Available oxycodone 5 mg tablet 10/20 completed Not Available Not Available Not Available ezetimibe 10 mg tablet TAKE 1 TABLET BY MOUTH ONCE DAILY AT BEDTIME active Not Available Not Available No t Available cyclosporin e 0.05 % eye drops in a dropperette INSTILL 1 DROP INTO EACH EYE TWICE DAILY active Not Available Not Available No t Available ketorolac 0.4 % eye drops INSTILL 1 DROP INTO AFFECTED EYE 4 TIMES DAILY FOR 5 DAYS AFTER SLT active Not Available Not Available No t Available bupropion HCl XL 300 mg 24 hr tablet, extended release TAKE 1 TABLET BY MOUTH ONCE DAILY IN THE MORNING DO NOT CRUSH, CHEW OR SPLIT 10/20 completed Not Available Not Available Not Available bupropion HCl XL 150 mg 24 hr tablet, extended release TAKE 1 TABLET BY MOUTH ONCE DAILY IN THE MORNING DO NOT CRUSH, CHEW OR SPLIT 10/20 completed Not Available Not Available Not Available nitrofurant oin monohydrate /macrocryst als 100 mg capsule TAKE 1 CAPSULE BY MOUTH EVERY 12 HOURS FOR 7 DAYS 01/05 completed Not Available Not Available Not Available fenofibrate nanocrystal lized 145 mg tablet TAKE 1 TABLET BY MOUTH ONCE DAILY active Not Available Not Available No t Available fenofibrate 150 mg capsule Take 1 capsule by mouth once daily active Not Available Not Available No t Available dexlansopra zole 60 mg capsule,bip hase delayed release TAKE 1 CAPSULE BY MOUTH ONCE DAILY DO NOT CRUSH OR CHEW 01/05 completed Not Available Not Available Not Available Dulera 200 mcg-5 mcg/actuati on HFA aerosol inhaler INHALE 2 PUFFS IN THE MORNING AND 2 IN THE EVENING RINSE MOUTH AFTER USE DIRECTED active Not Available Not Available No t Available sodium,pota ssium,mag sulfates 17.5 gram-3.13 gram-1.6 gram oral soln DILUTE, DRINK FULL AMOUNT EARLY EVENING BEFORE AND NEXT MORNING AT LEAST 4-5HRS BEFORE PROCEDURE FOLLOW WITH 960ML OF WATER BY MOUTH active Not Available Not Available No t Available ipratropium 0.5 mg-albutero l 2.5 mg/2.5 mL solution for nebulizatio n Inhale by inhalatio n route. active Not Available Not Available No t Available Vitals None Recorded Social History Question Answer Notes LastModified by Organizat ion Details LastModified Time Tobacco Smoking Status Former Smoker Yesi zuniga, [place] - [facility] - [place] & [place] 10/20/2023 13:34:15 Do You Have An Advance Directive? Yes [email or web address] Information not available 10/20/2023 Are You Blind Or Do You Have Difficulty Seeing? No [email or web address] Information not available 10/20/2023 What Was The Date Of Your Most Recent Tobacco Screening? 10/19/2023 Information not available 10/20/2023 Are You Passively Exposed To Smoke? No [email or web address] Information not available 10/20/2023 How Much Tobacco Do You Smoke? No [email or web address] Information not available 10/20/2023 How Many Years Have You Smoked Tobacco? 20 [email or web address] Information not available 10/20/2023 Sex: Unknown Functional Status Question Answer Note LastModified by Organizat ion Details LastModified Time Do you use any illicit or recreational drugs? No Information not available 10/20/2023 What is your level of alcohol consumption? Occasional Information not available 10/20/2023 Do you or have you ever used smokeless tobacco? [id number] Information n ot available 10/20/2023 What is your exercise level? Occasional [email or web address] Information not available 10/20/2023 Mental Status Question Answer Note LastModified by Organization D etails LastModified Time Do you feel stressed (tense, restless, nervous, or anxious, or unable to sleep at night)? [id number] [email or web address] Information not available 10/20/2023 Family History Relationship Description Onset Age of this Age Resolved Age Notes LastModified by Organization Details LastModified Time Mother Malignant neoplastic disease [email or web address] Not available 10/2023 15:27:59 Medical History Condition Response Allergies/Hayfever Y Heart Problems N None N Heart Conditions N Ear or Hearing Problems Y Emphysema N Migraines N Thyroid Problems Y GI Problems Y Glaucoma N Depression N Developmental Delay N Osteoporosis/Osteopenia Y Anemia N Immune System Disorder N Anesthesia Complications N Heart Attack ([place]) N Obstructive Sleep Apnea Y Anxiety Disorder N Diabetes N Obesity Y Bleeding Disorder N Vision or Eye Problems Y Arthritis Y Hearing Loss N Tuberculosis N Acid Reflux (GERD) Y Hyperlipidemia Y Cancer N Stroke N Asthma N Reflux/GERD Y Sleep Disorder Y GERD/Reflux N High Cholesterol Y Liver Disease Y Heart Disease N Fibromyalgia N Headaches N Hypertension N Speech Delay N Kidney Disease N Gynecological History Statement/Question Response Abnormal Pap Y 02/11/2022 Date of Last Colonoscopy 02/05/2022 Date of LMP 1998 Sexually Active? N Menses Monthly N Duration of Flow (days) 0 Date of Last Pap Smear 07/22/1997 Current Control Method None Age at Menarche 48 Obstetrics History GPAL:G 0 P 0 0 0 0 Immunizations Vaccine Type Date Status Note Provider Filemon esteves and Address Organization Details Recorded Time zoster recombinant 2 completed Elicia Barton null, [place] - [facility] & [place] 04/15/2023 13:41:44 zoster recombinant 2 completed Elicia Barton null, [place] - [facility] [place] & [place] 04/15/2023 13:41:44 Influenza, high-dose, quadrivalent, PF 0 completed Elicia Barton null, [place] - [facility] & [place] 04/15/2023 13:41:44 Influenza, high-dose, quadrivalent, PF 2 completed Elicia Barton null, [place] - [facility] & [place] 04/15/2023 13:41:44 MMR 3 completed Elicia Barton null, [place] - [facility] - [place] & [place] 04/15/2023 13:41:44 MMR 3 completed Elicia Barton null, [place] [facility] & [place] 04/15/2023 13:41:44 COVID-19, mRNA, LNP-S, PF, 30 mcg/0.3 mL dose 1 completed Elicia Barton null, [place] - [facility] & [place] 04/15/2023 13:41:44 COVID-19, mRNA, LNP-S, PF, 30 mcg/0.3 mL dose 1 completed [facility] Barton null, [facility] [place] 04/15/2023 13:41:44 COVID-19, mRNA, LNP-S, PF, 30 mcg/0.3 mL dose 1 completed Elicia Barton null, [place] - [facility] & [place] 04/15/2023 13:41:44 Pneumococcal conjugate PCV20, polysaccharide [id number] conjugate, adjuvant, PF 2 completed Elicia Barton null, [place] - [facility] & [place] 04/15/2023 13:41:44 COVID-19, mRNA, LNP-S, PF, 30 mcg/0.3 mL dose, radha-sucrose 2 completed Elicia Barton null, [place] - [facility] & [place] 04/15/2023 13:41:44 Pneumococcal conjugate PCV 13 9 completed Elicia Barton null, [place] - [facility] & [place] 04/15/2023 13:41:44 zoster live 6 completed Elicia Barton null, [facility] & [place] 04/15/2023 13:41:44 Influenza, high-dose, trivalent, PF 1 completed Elicia Barton null, [place] - [facility] & [place] 04/15/2023 13:41:44 Hep B, adult 3 completed Elicia Barton null, [place] - [facility] & [place] 04/15/2023 13:41:44 Hep B, adult 3 completed Elicia Barton null, [facility] & [place] 04/15/2023 13:41:44 Hep B, adult 3 completed Elicia Barton null, [facility] & [place] 04/15/2023 13:41:44 Past Encounters Encounter ID Performer Location Encounter Start Date Encounter Closed Date Diagnosis/Indication Diagnosis SNOMED-CT Code Diagnosis ICD10 Code Diagnosis IMO Codes Diagnosis Note [id number] Henna Henry, DNP, [employer], [employer] [facility] [address] [place] [address] 04/15/2023 13:33:24 04/15/2023 13:49:29 Upper respiratory infection 64660885 J06.9 [id number] Oscar Pearce MD [facility] [address] [place] [address] 10/20/2023 13:14:21 10/20/2023 14:47:13 Peripheral edema 354059638 R60.9 Lasix prnEcho pending Hyperlipidemia 74555188 E78.5 VERY HIGH TRIGLYCERI NASREEN RECHECK TODAY.Low fat/carboh ydrate dietIncrea se exerciseLo se weight Obstructiv e sleep apnea syndrome 12727099 G47.33 on CPAP Body mass index 30+ - obesity 450598951 Z68.36 Low-carboh ydrate and low-fat diet Increase exercise to 30 minutes a day. Increase fruits and fresh vegetable intake and decrease processed foods and sugars Dyspnea on exertion 6084 5006 R06.09 Echo to evaluate EF, diastolic function, valves and pulmonary pressures [id number] Guillaume Lozano MD [facility] [address] [facility] [address] [place] [address] 12/16/2023 11:25:38 12/16/2023 12:18:54 Liver enzymes level above reference range 374581070 R74.01 Non-alcoho lic fatty liver 728719929 K76.0 Acid reflux 655786390 K2 1.9 Obesity 304241279 E66.9 History of polyp of colon 572335147 Z86.562 [id number] Olivia Pisano APRN [facility] [address] [facility] [address] [place] [address] 12/22/2023 16:31:55 12/22/2023 17:11:26 Dysuria 09562047 R30.0 Acute urin key tract infection 310032745 N39.0 [id number] Truong Dickey MD [facility] [address] [facility] [address] [place] [address] 01/06/2024 14:33:56 01/06/2024 15:55:36 Abdominal pain 14315112 R10.9 Left tarsa l tunnel syndrome [id number] 65228 G57.52 Myofascial pain 94357826 9 M79.10 Neck pain 54445561 M54.2 [id number] Truong Dickey MD [facility] [address] [facility] [address] [place] [address] 01/12/2024 10:25:06 01/12/2024 13:38:31 Myofascial pain 561479813 M79.18 [id number] Truong Dickey MD [facility] [address] [facility] [address] [place] [address] 01/19/2024 11:17:00 01/19/2024 12:06:19 Left tarsal tunnel syndrome 0672652213 15178 G57.52 [id number] STEPHANIE VILLARREAL NP [facility] [address] 08/15/2024 10:05:34 08/15/2024 11:29:48 Sensorineural hearing loss of bilateral ears 979972782 H90.3 Reviewed her audiogram which was done this past May at [facility]. Her MRI of the brain and internal auditory canals was unremarkab le for any acoustic neuroma. It was noted that she had minimal amounts of fluid in mastoid air cells bilaterall y. Otoscopic exam today unremarkab le and middle ears are clear bilaterall y. Her symptoms are most consistent with sensorineu ral hearing loss so will get her evaluated for hearing aids today with our audiologis t. If symptoms persist after she obtains hearing aids follow up with me otherwise follow up annually. [id number] HERIBERTO MENDEZ [facility] [place] [facility] [address] 08/15/2024 10:48:56 08/15/2024 11:17:14 Sensorineural hearing loss 74462082 H90.3 [id number] HERIBERTO MENDEZ [facility] [place] [address] 10/19/2024 11:17:56 10/19/2024 11:34:05 Sensorineural hearing loss 16790444 H90.3 [id number] HERIBERTO MENDEZ [facility] [place] [facility] [address] 10/24/2024 15:20:21 10/24/2024 15:20:44 Sensorineural hearing loss 36026543 H90.3 [id number] HERIBERTO MENDEZ [facility] [place] [address] 6 11/14/2024 13:33:11 11/14/2024 13:52:01 Sensorineural hearing loss 26804300 H90.3 [id number] HERIBERTO MENDEZ [facility] [place] [address] 12/21/2024 11:28:56 12/21/2024 11:43:22 Sensorineural hearing loss 21764751 H90.3 [id number] HERIBERTO MENDEZ [facility] [place] [address] 6 03/15/2025 13:02:11 03/15/2025 13:15:48 Sensorineural hearing loss [id number] H90.3 [id number] HERIBERTO MENDEZ [facility] [id number] 06/28/2025 14:12:15 06/28/2025 14:26:58 Sensorineural hearing loss [id number] H90.3 [id number] HERIBERTO MENDEZ [facility] [id number] 07/12/2025 15:12:19 07/12/2025 15:14:38 Sensorineural hearing loss [id number] H90.3 Health Concerns Section Related Observation LastModified by Organization Detai ls LastModified Time None Recorded Concern Status LastModified by Organization Details LastModified Time None Recorded Advance Directives Directive Y: Payers Insurance Date Sequence Insurance Name Policy Number Policy Cunningham Covered Member ID Cunningham Member ID Guarantor Name 08/15/2024 1 [employer] (MEDICARE REPLACEMENT /ADVANTAGE - PPO) [id number] [facility] [id number] SENIOR LANDSCAPE ARCHITECT [facility] 07/11/2025 1 [employer] (MEDICARE REPLACEMENT /ADVANTAGE - PPO) [id number] [facility] [id number] [facility] Notes Date Note Type Note Provider Name and Address Organization Details Recorded Time 11/14/2024 text/html Patient was seen today for a hearing aid service. Cleaned and adjusted hearing aids this date. HERIBERTO MENDEZ [address] [place], [address], [facility] [place] 11/14/2024 13:56:15 12/21/2024 text/html Patient was seen today for a hearing aid service. Cleaned and adjusted hearing aids this date. MANUEL STRAUSS, HERIBERTO [address] , [place], [address], [place] [facility] [place] 12/21/2024 14:06:15 03/15/2025 text/html Patient was seen today for a hearing aid service. Cleaned and adjusted hearing aids this date. HERIBERTO MENDEZ [address], [place], [address], [place] [facility] [place] 03/15/2025 13:55:30 06/28/2025 text/html Patient was seen today for a hearing aid service. Cleaned and adjusted hearing aids this date. HERIBERTO MENDEZ [address] , [place], [address], [place] [facility] [place] 06/28/2025 14:27:49 07/12/2025 text/html Patient was seen today for a hearing aid service. Cleaned and adjusted hearing aids this date. HERIBERTO MENDEZ [address] , [place], [address], [place] [facility] [place] 07/12/2025 15:16:36 OBGyn Episode No OBEpisode recorded.
--- OUTSIDE RECORDS SUMMARY | 2025-07-16 11:31 | XMS_ITS | Encounter Summary ---
Author Organization Healthcare Address [address] [place] [address] Care Team Providers Care Real Estate Executive Assistant Name Role Phone Enrique Neely APRN Primary Care Provider [phone] Carmen Mcleod LPN Unavailable Unavailabl e Emili Foster Unavailable Unavailabl e Encounter Details Date Type Department Care Team (Late st Contact Info) Description 08/17/2024 Outside Procedure External Location [address] [place] [address] Enrique Neely APRN [address] [place] [address] Social History Tobacco Use Types [...] place to sleep or slept in a detention (including now)? No 11/04/2023 PHQ-9 Answer Date [...] any time in the past 12 m [facility], were you homeless or living in a detention (including now)? No 07/27/2024 Safety and Environment [...] the past 12 months has th e [employer] gas, oil, or water company threatened to [...] EST Office Visit Obstetrics & Gynecology [address] [place] [address] Rafael Ravi MD [address] [place] [address] documented as of this encounter Procedures Procedure Name Priority Date/Time Associated Diagnosis Comments XR SHOULDER LEFT 2+ VIEWS 08/17/2024 2:22 PM EST documented in this encounter Results * XR Shoulder Left 2+ Views (08/17/2024 2:22 PM EST) Anatomical Region Laterality Modality Upper Extremities, Shoulder Left Digi addie Radiography 08/17/2024 2:22 PM EST Narrative 08/19/2024 9:39 AM EST [address] [address] Name: OMER SUAREZ Exam Date: 08/17/2024 : 1950 Age 74 years Gender: F Physician: ENRIQUE NEELY Facility: [facility] Facility HSV: Outpatient Exam: SHOULDER COMP MIN 2 VWS LT XR SHOULDER 2 OR MORE VIEWS LEFT, 08/17/2024 1:55 PM SAT MATH TUTOR INDICATION: PAIN COMPARISON: No existing relevant imaging and/or the patient did not have previous relevant imaging. TECHNIQUE: 3 views left shoulder FINDINGS/ IMPRESSION : There is diffuse osteopenia, but no evidence of acute fracture or dislocation. Moderate left AC joint and mild glenohumeral osteoarthritis are noted. The visualized left hemithorax is clear. Atherosclerotic calcifications are noted within the aorta. Electronically signed by:Lucio Paredes MD08/19/2024 09:35 AM EST RP Dictated By: Lucio Paredes Transcribed By: Transcribed On: 08/17/2024 2:55 PM Electronically signed by: Lucio Paredes 08/17/2024 Thank you for referring OMER SUAREZ to [facility]. Legally authenticated by BLAKE HARRISON 2024-08-17 14:55:43 Procedure Note Provider, Generic [place] - 08/19/2024 [id number] [place] [address] Name: OMER SUAREZ Exam Date: 08/17/2024 : 1950 Age 74 years Gender: F Physician: ENRIQUE NEELY Facility: [facility] Facility HSV: Outpatient Exam: SHOULDER COMP MIN 2 VWS LT XR SHOULDER 2 OR MORE VIEWS LEFT, 08/17/2024 1:55 PM SAT MATH TUTOR INDICATION: PAIN COMPARISON: No existing relevant imaging and/or the patient did not have previous relevant imaging. TECHNIQUE: 3 views left shoulder FINDINGS/ IMPRESSION : There is diffuse osteopenia, but no evidence of acute fracture ordislocation. Moderate left AC joint and mild glenohumeral osteoarthritis are noted.The visualized left hemithorax is clear. Atherosclerotic calcifications arenoted within the aorta. Electronically signed by:Lucio Paredes MD08/19/2024 09:35 AM EST RP Dictated By: Lucio Paredes Transcribed By: Transcribed On: 08/17/2024 2:55 PM Electronically signed by: Lucio Paredes 08/17/2024 Thank you for referring OMER SUAREZ to [facility]. Legally authenticated by BLAKE HARRISON 2024-08-17 14:55:43 Enrique Neely MANAGING CONSULTANT IMG XR PROCEDURES Final Res ult documented in this encounter Visit Diagnoses Not [...] documented as of this encounter Care Teams Real Estate Executive Assistant Relationship Specialty Start Date End Date Enrique Neely APRN [facility] [place] [address] PCP - General 01/17/21 Carmen Mcleod LPN VALUE-BASED TRANSFORMATION PROGRAM Licensed Practical Nurse 10/12/24 04/10/[address]endant 05/21/25 06/25/25 documented as of this encounter
--- OUTSIDE RECORDS SUMMARY | 2025-07-16 11:31 | XMS_ITS | Encounter Summary ---
Author Organization Healthcare Address [address] [place] [address] Care Team Providers Care Peoplesoft Programmer Name Role Phone Sandy Cooper APRN Primary Care Provider [phone] Carmen Mcleod LPN Unavailable Unavailabl e Emili Foster Unavailable Unavailabl e Reason for Visit * Reason Comments Med Change Request Encounter Details Date Type Department Care Team (Late st Contact Info) Description 11/14/2023 Refill [facility] [address] [place] [address] Loren Cloud, SHELLACKER [address] [place] [address] Dysuria Social History Tobacco Use Types Packs/Day Years Used Date Smoking Tobacco: Former Cigarettes 1 1981 Passive Smoke Exposure: Never Smokeless Tobacco: [...] place to sleep or slept in a senior care (including now)? No 11/04/2023 Utilities Answer Date [...] Visit Obstetrics & Gynecology [address] [place] [address] Rafael Ravi MD [address] [place] [address] documented as of this encounter Visit Diagnoses Diagnosis Dysuria documented in this encounter Additional Health Concerns [...] documented as of this encounter Care Teams Peoplesoft Programmer Relationship Specialty Start Date End Date Sandy Cooper APRN [address] [place] [address] PCP - General 01/17/21 Carmen Mcleod LPN VALUE-BASED TRANSFORMATION PROGRAM Licensed Practical Nurse 10/12/24 04/10/25 Emili Foster Clinical Pulverizing And Sifting Operator 05/21/25 06/25/25 documented as of this encounter
--- OUTSIDE RECORDS SUMMARY | 2025-07-16 11:31 | XMS_ITS | Encounter Summary ---
Author Organization Healthcare Address [address] [place] [address] Care Team Providers Care Wood Machine Carver Name Role Phone Sandy Cooper APRN Primary Care Provider [phone] Carmen Mcleod LPN Unavailable Unavailabl e Emili Fostre Unavailable Unavailabl e Encounter Details Date Type Department Care Team (Late st Contact Info) Description 11/01/2023 Outside Procedure External Location [address] [place] [address] Henna Henry, COMPUTER TERMINAL OPERATOR, DNP [address] [place] [address] Social History Tobacco Use Types [...] Visit Obstetrics & Gynecology [address] [place] [address] Rafael Ravi MD [address] [place] [address] documented as of this encounter Procedures Procedure Name Priority Date/Time Associated Diagnosis Comments MAMMOGRAPHY BREAST POST BIOPSY CLIP BILATERAL 11/01/2023 1:47 PM EST documented in this encounter Results * Mammography Breast Post Biopsy Clip Bilateral (11/01/2023 1:47 PM EST) Anatomical Region Laterality Modality Breast Bilateral Mammography 11/01/2023 1:47 PM EST Narrative 11/01/2023 3:21 [place] [address] Name: OMER SUAREZ Exam Date: 11/01/2023 : 1950 Age 73 Gender: F Physician: Henna Henry Facility: [facility] Facility HSV: Outpatient Exam: CANDI DIAG MAMMO W/CAD BILAT MAMMOGRAM DIAGNOSTIC BILATERAL WITH TOMOSYNTHESIS HISTORY: Bilateral breast pain, history of recent boil with drainage in the left breast. COMPARISON: March 16, 2022 FINDINGS: Standard views were obtained. There are scattered fibroglandular densities. Benign-appearing calcifications are present. No mass, suspicious calcifications or architectural distortion is present. The site of the previous boil was marked with skin marker on the left breast in the approximate 12 o'clock position. IMPRESSION: No mammographic evidence of malignancy. BI-RADS 2: Benign RECOMMENDATION: Annual mammography CAD was utilized during interpretation. The patient will be sent a letter from the mammography department with their mammography findings. Dictated By: HOLLY TRUONG Transcribed By: Holly Truong Transcribed On: 11/01/2023 3:02 PM Electronically signed by: HOLLY TRUONG 11/01/2023 Thank you for referring OMER SUAREZ to [facility]. Legally authenticated by POPE HOLLY Arnold 2023-11-01 15:02:10 Procedure Note Provider, Generic [place] - 11/01/2023 [place] [address] Name: OMER SUAREZ Exam Date: 11/01/2023 : 1950 Age 73 Gender: F Physician: Henna Henry Facility: [facility] Facility HSV: Outpatient Exam: CANDI DIAG MAMMO W/CAD BILAT MAMMOGRAM DIAGNOSTIC BILATERAL WITH TOMOSYNTHESIS HISTORY: Bilateral breast pain, history of recent boil with drainage inthe left breast. COMPARISON: March 16, 2022 FINDINGS: Standard views were obtained. There are scatteredfibroglandular densities. Benign-appearing calcifications are present. No mass,suspicious calcifications or architectural distortion is present. The site of the previous boil was marked with skin marker on the left breast in the approximate 12 o'clock position. IMPRESSION: No mammographic evidence of malignancy. BI-RADS 2: Benign RECOMMENDATION: Annual mammography CAD was utilized during interpretation. The patient will be sent a letter from the mammography department withtheir mammography findings. Dictated By: HOLLY TRUONG Transcribed By: Holly Truong Transcribed On: 11/01/2023 3:02 PM Electronically signed by: HOLLY TRUONG 11/01/2023 Thank you for referring OMER SUAREZ to [facility]. 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 COVID-19 Rule-Out 11/23/2024 11/23/2024 11/24/2024 11:17 AM EDT Assessment Noted Time PHQ-9 Depression Total Score: 21 022 3:03 PM EST A fall risk assessment has been complete d for the patient 10/05/2023 3:17 PM EST A Body Mass Index follow-up plan has been documented for the patient 10/08/2023 6:23 PM EST documented as of this encounter Care Teams Wood Machine Carver Relationship Specialty Start Date End Date Sandy Cooper APRN [address] [place] [address] PCP - General 01/17/21 Carmen Mcleod LPN VALUE-BASED TRANSFORMATION PROGRAM Licensed Practical Nurse 10/12/24 04/10/25 Emili Foster Clinical Supervisor Ovens 05/21/25 06/25/25 documented as of this encounter
--- OUTSIDE RECORDS SUMMARY | 2025-07-16 11:31 | XMS_ITS | Encounter Summary ---
Author Organization Healthcare Address [address] [place] [address] Care Team Providers Care Delivery Crew Worker Name Role Phone KennethSandy STEPHENIE Primary Care Provider [phone] Laura Tinajero SORTER PACKER Unavailable Unavailable Carmen Mcleod SORTER PACKER Unavailable Unavailabl e Emili Foster Unavailable Unavailabl e Encounter Details Date Type Department Care Team (Late Contact Info) Description 10/17/2022 Outside Procedure External Location [address] [place] [address] Provider, [facility] Social History Tobacco Use Types Packs/Day [...] EST Office Visit Obstetrics & Gynecology [address] [place] [address] Rafael Ravi MD [address] [place] [address] documented as of this encounter Procedures Procedure Name Priority Date/Time Associated Diagnosis Comments XR CHEST 1 VIEW 10/17/2022 4:13 PM EST documented in this encounter Results * XR Chest 1 View (10/17/2022 4:13 PM EST) Anatomical Region Laterality Modality Chest Digital Radiogra phy 10/17/2022 4:13 PM EST Narrative 10/17/2022 6:25 [place] [address] Name: OMER CHAVIRA Exam Date: 10/17/2022 : 1950 Age 72 Gender: F Physician: RAISSA CHOI Facility: [facility] Facility HSV: Outpatient Exam: CHEST PORTABLE FINAL REPORT CLINICAL HISTORY: soa FINDINGS: SINGLE VIEW CHEST Cardiomegaly is noted. The mediastinum is within normal limits. There is a right lung basilar opacity. The left lung is clear. There is no evidence of pneumothorax. The bony thorax is intact. IMPRESSION: Right lung basilar opacity which may represent atelectasis or pneumonia. Reviewed, Interpreted and Dictated by Noah Palomo III, MD Transcribed by Alexis Angel Authenticated and EASTERN Dictated By: Noah Palomo III Transcribed By: Transcribed On: 10/17/2022 6:14 PM Electronically signed by: Noah Palomo III 10/17/2022 Thank you for referring OMER CHAVIRA to [facility]. Legally authenticated by GABBI Núñez III 2022-10-17 18:14:31 Procedure Note Provider, Generic [place] - 10/17/[address] [address] Name: OMER CHAVIRA Exam Date: 10/17/2022 : 1950 Age 72 Gender: F Physician: RAISSA CHOI Facility: [facility] Facility HSV: Outpatient Exam: CHEST PORTABLE FINAL REPORT CLINICAL HISTORY: soa FINDINGS: SINGLE VIEW CHEST Cardiomegaly is noted. The mediastinum is within normal limits. There is a right lung basilar opacity. The left lung is clear. There is no evidence of pneumothorax. The bony thorax is intact. IMPRESSION: Right lung basilar opacity which may represent atelectasis or pneumonia. Reviewed, Interpreted and Dictated by Noah Palomo III, MD Transcribed by Alexis Angel Authenticated and EASTERN Dictated By: Noah Palomo III Transcribed By: Transcribed On: 10/17/2022 6:14 PM Electronically signed by: Noah aPlomo III 10/17/2022 Thank you for referring OMER CHAVIRA to [facility]. Legally authenticated by GABBI Núñez III 2022-10-17 18:14:31 us Generic [place] Provider IMG XR PROCEDURES Fi nal Result [...] documented as of this encounter Care Teams Delivery Crew Worker Relationship Specialty Start Date End Date Sandy Cooper APRN [address] [place] [address] PCP - General 01/17/21 Laura Tinajero LPN VALUE-BASED [place] [address] TCM Nurse 10/20/22 10/21/22 Carmen Mcleod LPN VALUE-BASED TRANSFORMATION PROGRAM Licensed Practical Nurse 10/12/24 04/10/25 Emili Foster Clinical Mobility Architect Manager 05/21/25 06/25/25 documented as of this encounter
--- OUTSIDE RECORDS SUMMARY | 2025-07-16 11:31 | XMS_ITS | Encounter Summary ---
Author Organization Healthcare Address [address] [place] [address] Care Team Providers Care Nursing Home Director Name Role Phone Sandy Cooper APRN Primary Care Provider [phone] Carmne Mcleod LPN Unavailable Unavailabl e Emili Foster Unavailable Unavailabl e Encounter Details Date Type Department Care Team (Late Contact Info) Description 01/26/2023 Outside Procedure External Location [address] [place] [address] Lakeisha Hinojosa, LAUNDRY TECH [address] [place] [address] Social History Tobacco Use Types Packs/Day Years Used Date Smoking Tobacco: Former Cigarettes 1 20 1 965 - 1981 Passive Smoke Exposure: Never [...] EST Office Visit Obstetrics & Gynecology [address] [place] [address] Rafael Ravi MD [address] [place] [address] documented as of this encounter Procedures Procedure Name Priority Date/Time Associated Diagnosis Comments MR SHOULDER RIGHT WO IV CONTRAST 01/26/2023 2:12 PM EDT documented in this encounter Results * MR Shoulder Right wo IV Contrast (01/26/2023 2:12 PM EDT) Anatomical Region Laterality Modality Upper Extremities Right Magnetic Reson ance 01/26/2023 2:12 PM EDT Narrative 01/26/2023 5:13 [place] [address] Name: OMER SUAREZ Exam Date: 01/26/2023 : 1950 Age 72 Gender: F Physician: LAKEISHA HINOJOSA Facility: [facility] Facility HSV: Outpatient Exam: MRI SHOULDER W/O RIGHT FINAL REPORT CLINICAL HISTORY: Shoulder pain x 2 months No trauma No surgery FINDINGS: Multiplanar MR imaging of the right shoulder was performed without contrast. A high-grade full-thickness tear is seen of the distal supraspinatus tendon. A small portion of the posterior tendon may be intact. There is moderate supraspinatus muscle atrophy. A partial thickness articular surface tear is seen of the distal infraspinatus tendon involving less than 50% of the thickness of the tendon. There is mild infraspinatus tendon atrophy. There is mild a.c. joint arthrosis. Moderate fluid is seen in the subacromial/subdeltoid bursa. No labral tear is identified. The long head of the biceps tendon has an abnormal appearance, favor a high-grade near complete tear. A small portion of the tendon may be intact. A moderate glenohumeral joint effusion is seen. There is no evidence of fracture or dislocation. Small subchondral cysts are seen in the superior humeral head. There is no evidence of soft tissue mass. IMPRESSION: High-grade full-thickness tear of the distal supraspinatus tendon with moderate muscle atrophy. Partial thickness articular surface tear of the distal infraspinatus tendon involving less than 50% of the thickness of the tendon. Near complete tear of the long head of the biceps tendon. Authenticated and EASTERN Dictated By: Noah Palomo III Transcribed By: Transcribed On: 01/26/2023 5:02 PM Electronically signed by: Noah Palomo III 01/26/2023 Thank you for referring OMER SUAREZ to [facility]. Legally authenticated by GABBI Núñez III 2023-01-26 17:02:39 Procedure Note Provider, Generic [place] - 01/26/2023 [place] [address] Name: OMER SUAREZ Exam Date: 01/26/2023 : 1950 Age 72 Gender: F Physician: LAKEISHA HINOJOSA Facility: [facility] Facility HSV: Outpatient Exam: MRI SHOULDER W/O RIGHT FINAL REPORT CLINICAL HISTORY: Shoulder pain x 2 months No trauma No surgery FINDINGS: Multiplanar MR imaging of the right shoulder was performed without contrast. A high-grade full-thickness tear is seen of the distal supraspinatus tendon. A small portion of the posterior tendon may be intact. There is moderate supraspinatus muscle atrophy. A partial thickness articular surface tear is seen of the distal infraspinatus tendon involving less than 50% of the thickness of the tendon. There is mild infraspinatus tendon atrophy. There is mild a.c. joint arthrosis. Moderate fluid is seen in the subacromial/subdeltoid bursa. No labral tear is identified. The long head of the biceps tendon has an abnormal appearance, favor a high-grade near complete tear. A small portion of the tendon may be intact. A moderate glenohumeral joint effusion is seen. There is no evidence of fracture or dislocation. Small subchondral cysts are seen in the superior humeral head. There is no evidence of soft tissue mass. IMPRESSION: High-grade full-thickness tear of the distal supraspinatus tendon with moderate muscle atrophy. Partial thickness articular surface tear of the distal infraspinatus tendon involving less than 50% of the thickness of the tendon. Near complete tear of the long head of the biceps tendon. Authenticated and EASTERN Dictated By: Noah Palomo III Transcribed By: Transcribed On: 01/26/2023 5:02 PM Electronically signed by: Noah Palomo III 01/26/2023 Thank you for referring OMER SUAREZ to [facility]. Legally authenticated by GABBI Núñez III 2023-01-26 17:02:39 Lakeisha Hinojosa APRN IMG MRI PROCEDURES Final Result documented in this encounter [...] documented as of this encounter Care Teams Nursing Home Director Relationship Specialty Start Date End Date Sandy Cooper APRN [address] [place] [address] PCP - General 01/17/21 Carmen Mcleod LPN VALUE-BASED TRANSFORMATION PROGRAM Licensed Practical Nurse 10/12/24 04/10/25 Emili Foster Clinical Management Internship 05/21/25 06/25/25 documented as of this encounter
--- OUTSIDE RECORDS SUMMARY | 2025-07-16 11:31 | XMS_ITS | Encounter Summary ---
Author Organization Healthcare Address [address] [place] [address] Care Team Providers Care Mop Machine Operator Name Role Phone Sandy Cooper APRN Primary Care Provider [phone] Carmen Mcleod LPN Unavailable Unavailabl e Emili Foster Unavailable Unavailabl e Encounter Details Date Type Department Care Team (Late Contact Info) Description 04/06/2023 Outside Procedure External Location [address] [place] [address] Lakeisha Hinojosa, NEWS ANCHOR [address] [place] [address] Social History Tobacco Use Types Packs/Day Years Used Date Smoking Tobacco: Former Cigarettes 1 20 1 965 - 1981 Passive Smoke Exposure: Never Smokeless Tobacco: Never Alcohol Use Standard Drinks/Week Comments Never 0 (1 standard drink = 0.6 oz pur e alcohol) PHQ-2 Answer Date Recorded Patient Health Questionnaire-2 Score 2 03/23/2023 Comments No Sex and Gender Information Value Date Recorded Sex Assigned at Not on file Legal Sex Female 8:22 PM EDT Gender Identity Not on file Sexual Orientation Not on file documented as of this encounter Plan of Treatment Upcoming Encounters Date Type Department Care Team (Late Contact Info) Description 08/23/2025 1:15 PM EST Office Visit Obstetrics & Gynecology [address] [place] [address] Rafael Ravi MD [address] [place] [address] documented as of this encounter Procedures Procedure Name Priority Date/Time Associated Diagnosis Comments CT ABDOMEN PELVIS W IV CONTRAST 04/06/2023 12:50 PM EDT documented in this encounter Results * CT Abdomen Pelvis w IV Contrast (04/06/2023 12:50 PM EDT) Anatomical Region Laterality Modality Abdomen, Pelvis Computed Tomogra phy 04/06/2023 12:5 0 PM EDT Narrative 04/06/2023 2:36 [place] [address] Name: OMER SUAREZ Exam Date: 04/06/2023 : 1950 Age 73 Gender: F Physician: LAKEISHA HINOJOSA Facility: [facility] Facility HSV: Outpatient Exam: CT ABD PEL W/ (IV ORAL) EXAM: CT ABDOMEN AND PELVIS WITH IV CONTRAST INDICATION: Hernia repair TECHNIQUE: The patient was injected with IV contrast. Oral contrast was administered. Axial images were obtained from the lung bases to the pubic symphysis by computed tomography. This study was performed with techniques to keep radiation doses as low as reasonably achievable, (ALARA). Individualized dose reduction techniques using automated exposure control or adjustment of mA and/or kV according to the patient size were employed. COMPARISON: April 18, 2021 FINDINGS: LUNG BASES: No focal pneumonia at the lung bases. Mild dependent atelectasis. Normal heart size. No pericardial effusion. Multivessel coronary artery calcifications.. LIVER: Hepatomegaly with hepatic steatosis GALLBLADDER/BILIARY TREE: Cholecystectomy. SPLEEN: No splenomegaly. ADRENAL GLANDS: Unremarkable. PANCREAS: Grossly unremarkable KIDNEYS: No stones. No Hydronephrosis. BOWEL: No small bowel dilatation. No colonic dilation. Large amount of colonic stool. Colonic diverticulosis without acute diverticulitis. Appendix is normal. PERITONEUM/RETROPERITONEUM: No free fluid. No free air. LYMPH NODES: No retroperitoneal adenopathy. No mesenteric adenopathy. BLADDER: Unremarkable REPRODUCTIVE ORGANS: Hysterectomy. VASCULAR: No aortic aneurysm. No iliac aneurysm. BONES: No suspicious osseous lesion. Degenerative changes of the spine. No acute bony abnormality. Interval repair of previous fat-containing umbilical hernia. No residual hernia. IMPRESSION: Interval repair of previous fat-containing umbilical hernia. No residual hernia. Legally authenticated by TORO JOY 2023-04-06 14:25:34 No acute pathology. Dictated By: Cydney Yoon Transcribed By: Cydney Grace Transcribed On: 04/06/2023 2:25 PM Electronically signed by: Cydney Yoon 04/06/2023 Thank you for referring OMER SUAREZ to [facility]. Legally authenticated by TORO JOY 2023-04-06 14:25:34 Procedure Note Provider, Generic [place] - 04/06/[address] [address] Name: OMER SUAREZ Exam Date: 04/06/2023 : 1950 Age 73 Gender: F Physician: LAKEISHA HINOJOSA Facility: [facility] Facility HSV: Outpatient Exam: CT ABD PEL W/ (IV ORAL) EXAM: CT ABDOMEN AND PELVIS WITH IV CONTRAST INDICATION: Hernia repair TECHNIQUE: The patient was injected with IV contrast. Oral contrast was administered. Axial images were obtained from the lung bases to thepubic symphysis by computed tomography. This study was performed with techniquesto keep radiation doses as low as reasonably achievable, (ALARA).Individualized dose reduction techniques using automated exposure control or adjustmentof mA and/or kV according to the patient size were employed. COMPARISON: April 18, 2021 FINDINGS: LUNG BASES: No focal pneumonia at the lung bases. Mild dependentatelectasis. Normal heart size. No pericardial effusion. Multivessel coronary artery calcifications.. LIVER: Hepatomegaly with hepatic steatosis GALLBLADDER/BILIARY TREE: Cholecystectomy. SPLEEN: No splenomegaly. ADRENAL GLANDS: Unremarkable. PANCREAS: Grossly unremarkable KIDNEYS: No stones. No Hydronephrosis. BOWEL: No small bowel dilatation. No colonic dilation. Large amount of colonic stool. Colonic diverticulosis without acute diverticulitis. Appendix is normal. PERITONEUM/RETROPERITONEUM: No free fluid. No free air. LYMPH NODES: No retroperitoneal adenopathy. No mesenteric adenopathy. BLADDER: Unremarkable REPRODUCTIVE ORGANS: Hysterectomy. VASCULAR: No aortic aneurysm. No iliac aneurysm. BONES: No suspicious osseous lesion. Degenerative changes of the spine.No acute bony abnormality. Interval repair of previous fat-containing umbilical hernia. No residual hernia. IMPRESSION: Interval repair of previous fat-containing umbilical hernia. No residual hernia. Legally authenticated by TORO JOY 2023-04-06 14:25:34 No acute pathology. Dictated By: Cydney Yoon Transcribed By: Cydney Grace Transcribed On: 04/06/2023 2:25 PM Electronically signed by: Cydney Yoon 04/06/2023 Thank you for referring [facility]Z to [facility] Legally authenticated by TORO JOY 2023-04-06 14:25:34 Lakeisha Hinojosa APRN IMG CT PROCEDURES Final R esult documented in this encounter Visit Diagnoses Not on filedocumented in this encounter Additional Health Concerns Infection Onset Date Last Indicated Resolved Time MRSA 11/19/2021 11/19/2021 COVID-19 Rule-Out 11/23/2024 11/23/2024 11/24/2024 11:17 AM EDT Assessment Noted Time PHQ-9 Depression Total Score: 21 07/28/ 022 3:03 PM EST A fall risk assessment has been complete d for the patient 03/23/2023 1:31 PM EDT A Body Mass Index follow-up plan has been documented for the patient 03/27/2023 2:14 PM EDT documented as of this encounter Care Teams Mop Machine Operator Relationship Specialty Start Date End Date Sandy Cooper APRN [address] [place] [phone] PCP - General 01/17/21 Carmen Mcleod LPN VALUE-BASED TRANSFORMATION PROGRAM Licensed Practical Nurse 10/12/24 04/10/25 Emili Foster Clinical Business Analytics Manager 05/21/25 06/25/25 documented as of this encounter
--- OUTSIDE RECORDS SUMMARY | 2025-07-16 11:31 | XMS_ITS | Encounter Summary ---
Author Organization Healthcare Address [address] [place] [address] Care Team Providers Care General Distillery Worker Name Role Phone Sandy Cooper APRN Primary Care Provider [phone] Carmen Mcleod LPN Unavailable Unavailabl e Emili Foster Unavailable Unavailabl e Encounter Details Date Type Department Care Team (Late st Contact Info) Description 09/14/2024 Outside Procedure External Location [address] [place] [address] Niki Garcia, RAILWAY PATROL OFFICER [address] [place] [address] Social History Tobacco Use Types [...] place to sleep or slept in a fpc (including now)? No 11/04/2023 PHQ-9 Answer Date [...] any time in the past [address] [facility], were you homeless or living in a fpc (including now)? No 07/27/2024 Safety and Environment [...] the past 12 months has th e [employer], gas, oil, or water company threatened to [...] EST Office Visit Obstetrics & Gynecology [address] [place] [address] Rafael Ravi MD [address] [place] [address] documented as of this encounter Procedures Procedure Name Priority Date/Time Associated Diagnosis Comments CT ABDOMEN PELVIS W IV CONTRAST 09/14/2024 2:13 PM EST documented in this encounter Results * CT Abdomen Pelvis w IV Contrast (09/14/2024 2:13 PM EST) Anatomical Region Laterality Modality Abdomen, Pelvis Computed Tomogra phy 09/14/2024 2:13 PM EST Narrative 09/14/2024 2:37 PM EST [address] [address] Name: OMER SUAREZ Exam Date: 09/14/2024 : 1950 Age 74 years Gender: F Physician: NIKI GARCIA Facility: [facility] Facility HSV: Outpatient Exam: CT ABD PEL W/ (IV ORAL) CT ABDOMEN PELVIS WITH IV CONTRAST, 09/14/2024 1:20 PM INFORMATION SYSTEMS PROFESSOR INDICATION: abd pain COMPARISON: Prior CT abdomen and pelvis of April 06, 2023 TECHNIQUE: Multiplanar CT abdomen pelvis with IV contrast. One or more of the following dose reduction techniques were used: Automated exposure control, adjustment of the mA and/or kV according to patient size, and/or iterative reconstruction. Unless otherwise specified, incidental findings do not require dedicated imaging follow-up. FINDINGS: The visualized lung bases are clear. A 0.4 cm left lower lobe nodule has been stable since at least 2020 and may be considered benign. The liver is enlarged, measuring up to 22.4 cm along its right lateral margin with diffuse fatty infiltration. No focal liver lesions are seen. The gallbladder is surgically absent. The spleen, pancreas, adrenal glands, and kidneys are unremarkable. Atherosclerotic calcifications are noted within the aorta. The appendix is normal in the right lower quadrant on axial image 61. There is a moderate volume of stool throughout the colon without obstruction. Uncomplicated sigmoid colon diverticula are noted. There is no free air or free fluid in the abdomen or pelvis and no suspicious mesenteric or retroperitoneal lymphadenopathy. Degenerative changes are seen in the lumbar spine, greatest at L2-L3 and L5-S1 with a slight upper lumbar dextrocurvature. 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 No fracture or suspicious osseous lesion. IMPRESSION: 1. No definite acute process in the abdomen or pelvis. 2. Hepatomegaly and diffuse fatty infiltration of the liver. 3. 0.4 cm left lower lobe nodule has been stable since 2020 and may be considered benign. 4. Uncomplicated colonic diverticula. 5. Bony degenerative changes as discussed above. Electronically signed by:Lucio Paredes MD09/14/2024 02:32 PM [facility] Dictated By: Lucio Paredes Transcribed By: Transcribed On: 09/14/2024 2:20 PM Electronically signed by: Lucio Paredes 09/14/2024 Thank you for referring OMER SUAREZ to [facility]. Legally authenticated by BLAKE HARRISON 2024-09-14 14:20:38 Procedure Note Provider, Generic [place] - 09/14/2024 [id number] [place] [address] Name: OMER SUAREZ Exam Date: 09/14/2024 : 1950 Age 74 years Gender: F Physician: NIKI GARCIA Facility: [facility] Facility HSV: Outpatient Exam: CT ABD PEL W/ (IV ORAL) CT ABDOMEN PELVIS WITH IV CONTRAST, 09/14/2024 1:20 PM INFORMATION SYSTEMS PROFESSOR INDICATION: abd pain COMPARISON: Prior CT abdomen and pelvis of April 06, 2023 TECHNIQUE: Multiplanar CT abdomen pelvis with IV contrast. One or more ofthe following dose reduction techniques were used: Automated exposurecontrol, adjustment of the mA and/or kV according to patient size, and/oriterative reconstruction. Unless otherwise specified, incidental findings do notrequire dedicated imaging follow-up. FINDINGS: The visualized lung bases are clear. A 0.4 cm left lower lobe nodule hasbeen stable since at least 2020 and may be considered benign. The liver is enlarged, measuring up to 22.4 cm along its right lateralmargin with diffuse fatty infiltration. No focal liver lesions are seen. The gallbladder is surgically absent. The spleen, pancreas, adrenal glands,and kidneys are unremarkable. Atherosclerotic calcifications are noted withinthe aorta. The appendix is normal in the right lower quadrant on axial image61. There is a moderate volume of stool throughout the colon withoutobstruction. Uncomplicated sigmoid colon diverticula are noted. There is no free airor free fluid in the abdomen or pelvis and no suspicious mesenteric or retroperitoneal lymphadenopathy. Degenerative changes are seen in the lumbar spine, greatest at L2-L3 andL5-S1 with a slight upper lumbar dextrocurvature. Mild to moderate bilateralSI joint and hip osteoarthritis are noted. No fracture or suspiciousosseous lesion. IMPRESSION: 1. No definite acute process in the abdomen or pelvis. 2. Hepatomegaly and diffuse fatty infiltration of the liver. 3. 0.4 cm left lower lobe nodule has been stable since 2020 and may be considered benign. 4. Uncomplicated colonic diverticula. 5. Bony degenerative changes as discussed above. Electronically signed by:Lucio Paredes MD09/14/2024 02:32 PM EST Dictated By: Lucio Paredes Transcribed By: Transcribed On: 09/14/2024 2:20 PM Electronically signed by: Lucio Paredes 09/14/2024 Thank you for referring OMER SUAREZ to [facility]. Legally authenticated by BLAKE HARRISON 2024-09-14 14:20:38 us Niki Wigginsum RAILWAY PATROL OFFICER IMG CT PROCEDURES Final Resul t documented in this encounter Visit Diagnoses Not on filedocumented in this encounter Additional Health Concerns Infection Onset Date Last Indicated Resolved Time MRSA 11/19/2021 11/19/2021 COVID-19 Rule-Out 11/23/2024 11/23/2024 11/24/2024 11:17 AM EDT Assessment Noted Time PHQ-9 Depression Total Score: 17 024 2:25 PM EST A fall risk assessment has been complete d for the patient 08/31/2024 3:15 PM EST A Body Mass Index follow-up plan has been documented for the patient 08/31/2024 3:41 PM EST documented as of this encounter Care Teams General Distillery Worker Relationship Specialty Start Date End Date Sandy Copoer APRN [address] [place] [id number] PCP - General 01/17/21 Carmen Mcleod LPN VALUE-BASED TRANSFORMATION PROGRAM Licensed Practical Nurse 10/12/24 04/10/25 Emili Foster Clinical Business Line Controller 05/21/25 06/25/25 documented as of this encounter
--- OUTSIDE RECORDS SUMMARY | 2025-07-16 11:31 | XMS_ITS | Encounter Summary ---
Author Organization Healthcare Address [address] [place] [address] Care Team Providers Care Commissary Agent Name Role Phone Sandy Cooper APRN Primary Care Provider [phone] Laura Tinajero GANG BORE OPERATOR Unavailable Unavailable Carmen Mcleod GANG BORE OPERATOR Unavailable Unavailabl e Emili Foster Unavailable Unavailabl e Reason for Visit * Reason Comments Med Refill Encounter Details Date Type Department Care Team (Late st Contact Info) Description 11/14/2021 Refill Family and Community Medicine [address] [place] [address] Sandy Cooper, DIRECTOR DIGITAL MARKETING [address] [place] [address] Obesity (BMI 35.0-39.9 without comorbidity); Hiatal hernia Social History Tobacco Use Types Packs/Day Years [...] have Coronavirus / COVID-19? No / Unsure 11/14/2021 11:06 AM EST documented as of this encounter Miscellaneous Notes * Telephone Encounter - Domi Hastings LPN - 11/18/2021 7:49 AM EDT Refilled Cimetidine * Telephone Encounter - Sandy Cooper APRN - 11/17/2021 8:17 PM EDT Yes ok to refill cemtidine * Telephone Encounter - Desire Carreon MA - 11/17/2021 3:25 PM EDT Patient does not need the contrave. Ok to fill the cinetidine? Please advise. * Telephone Encounter - Sandy Cooper APRN - 11/17/2021 1:23 PM EDT She has to have appointment with me to get the contrave refilled * Telephone Encounter - Sandy Cooper APRN - 11/16/2021 1:47 PM EDT I am not rxing the contrave with out a visit * Telephone Encounter - Maykel Garnica - 11/14/2021 11:18 AM EST Sending to clinic for review. Patient has an appt later today (11-14-2021) do you wish to renew prior to having the labs/appointment notes from today's appointment? documented in this encounter Plan of Treatment Upcoming Encounters Date Type Department Care Team (Late st Contact Info) Description 08/23/2025 1:15 PM EST Office Visit [facility] [address] [place] [address] Rafael Ravi MD [address] [place] [address] documented as of this encounter Visit Diagnoses Diagnosis Obesity (BMI 35.0-39.9 without comorbidity) Hiatal hernia Diaphragmatic hernia without mention of obstruction or gangrene documented in this encounter Additional Health Concerns Infection Onset Date Last Indicated Resolved Time MRSA 11/19/2021 11/19/2021 COVID-19 Rule-Out 11/23/2024 11/23/2024 11/24/2024 11:17 AM EDT Assessment Noted Time A fall risk assessment has been complete d for the patient 11/14/2021 11:35 AM EST documented as of this encounter Care Teams Commissary Agent Relationship Specialty Start Date End Date Sandy Cooper APRN [address] [place] [address] PCP - General 01/17/21 Laura Tinajero LPN VALUE-BASED [place] [address] TCM Nurse 10/20/22 10/21/22 Carmen Mcleod LPN VALUE-BASED TRANSFORMATION PROGRAM Licensed Practical Nurse 10/12/24 04/10/25 Emili Foster Clinical Tapper Bit 05/21/25 06/25/25 documented as of this encounter
--- OUTSIDE RECORDS SUMMARY | 2025-07-16 11:31 | XMS_ITS | Encounter Summary ---
Author Organization Healthcare Address [address] [place] [address] Care Team Providers Care Editor Managing Director Name Role Phone Kenneth Sandy Espinal APRN Primary Care Provider [phone] Laura Tinajero MASTER COASTAL WATERS Unavailable Unavailable Carmen Mcleod LPN Unavailable Unavailabl e Emili Foster Unavailable Unavailabl e Encounter Details Date Type Department Care Team (Late st Contact Info) Description 09/15/2021 Outside Procedure External Location [address] [place] [address] Provider, Terell [place] Social History Tobacco Use Types Packs/Day Years [...] or suspected to have Coronavirus / COVID-19? Unable to assess 09/15/2021 1:17 PM EST documented as of this encounter Functional Status * Over the past 2 weeks, how often have you been bothered by any of the following problems? Question Answer Date of Assessment Author Little interest or pleasure in doing things Not at all 09/15/2021 1:26 PM EST Domi Hastings LPN Feeling down, depressed, or hopeless Not at all 09/15/2021 1:26 PM EST Domi Hastings LPN Patient Health Questionnaire-2 Score 0 09/15/2021 1:26 PM EST Jatinder Hastings LPN * Calculated C-SSRS Risk Score (Lifetime/Recent) Answer Date of Assessment Author No Risk Indicated 09/15/2021 1:26 PM EST Buddy margaritaDomi LPN * Question Answer Date of Assessment Author 1. Wish to be (Past 1 Month) No 022 1:26 PM EST Domi Hastings LPN 2. Non-Specific Active Suici prosper Thoughts (Past 1 Month) No 09/15/2021 1:26 PM EST Aminata Hastings LPN 6. Suicidal Behavior (Lifetime) No 1:26 PM EST Domi Hastings LPN documented as of this encounter Plan of Treatment Upcoming Encounters Date Type Department Care Team (Late st Contact Info) Description 08/23/2025 1:15 PM EST Office Visit Obstetrics & Gynecology [address] [place] [address] Rafael Ravi MD [address] [place] [address] documented as of this encounter Procedures Procedure Name Priority Date/Time Associated Diagnosis Comments XR CERVICAL SPINE 2 OR 3 VIEWS 09/15/2021 2:19 PM EST documented in this encounter Results * XR Cervical Spine 2 or 3 Views (09/15/2021 2:19 PM EST) Anatomical Region Laterality Modality Spine, C-spine Radiographic Maria Fernanda ging 09/15/2021 2:19 PM EST Narrative 09/15/2021 4:12 PM EST [facility] [address] [place] [address] Name: OMER SUAREZ Exam Date: 09/15/2021 : 1950 Age 71 Gender: F Physician: KELVIN DU Facility: [facility] Facility HSV: Outpatient Exam: CERVICAL SPINE 2 TO 3V Cervical spine History: Neck pain Findings: 3 views were obtained. The lower cervical spine is obscured by shoulders. No acute fracture or malalignment is identified. There is severe diffuse degenerative disc disease and spondylosis. Prevertebral soft tissues are unremarkable. Impression: Severe diffuse degenerative disc disease and spondylosis. Films reviewed , interpreted and dictated by Dr. Portillo. Transcribed by Jaziel Mendoza PA-C. Dictated By: ASHA PORTILLO Transcribed By: Srinath Portillo Transcribed On: 09/15/2021 4:00 PM Electronically signed by: ASHA PORTILLO 09/15/2021 Thank you for referring OMER SUAREZ to [facility]. Legally authenticated by BANDAR HERNANDEZ 2021-09-15 16:00:40 Procedure Note Provider, [facility] [place] [place] - 09/15/2021 [place] [address] Name: OMER SUAREZ Exam Date: 09/15/2021 : 1950 Age 71 Gender: F Physician: KELVIN DU Facility: [facility] Facility HSV: Outpatient Exam: CERVICAL SPINE 2 TO 3V Cervical spine History: Neck pain Findings: 3 views were obtained. The lower cervical spine is obscured by shoulders.No acute fracture or malalignment is identified. There is severe diffuse degenerative disc disease and spondylosis. Prevertebral soft tissues are unremarkable. Impression: Severe diffuse degenerative disc disease and spondylosis. Films reviewed , interpreted and dictated by Dr. Portillo. Transcribed by Jaziel Mendoza PA-C. Dictated By: ASHA PORTILLO Transcribed By: Srinath Portillo Transcribed On: 09/15/2021 4:00 PM Electronically signed by: ASHA PORTILLO 09/15/2021 Thank you for referring OMER SUAREZ to [facility]. Legally authenticated by BANDAR HERNANDEZ 2021-09-15 16:00:40 Generic [place] Provider IMG XR PROCEDURES Fi nal Result [...] documented as of this encounter Care Teams Editor Managing Director Relationship Specialty Start Date End Date Sandy Cooper APRN [address] [place] [address] PCP - General 01/17/21 Laura Tinajero LPN VALUE-BASED [place] [address] TCM Nurse 10/20/22 10/21/22 Carmen Mcleod LPN VALUE-BASED TRANSFORMATION PROGRAM Licensed Practical Nurse 10/12/24 04/10/25 Emili Foster Clinical Trauma Coordinator 05/21/25 06/25/25 documented as of this encounter
--- OUTSIDE RECORDS SUMMARY | 2025-07-16 11:31 | XMS_ITS | Clinical Summary ---
[facility] Address [address] [place] [address] Care Team Providers Care Surgical Supply Assistant Name Role Phone Sandy Cooper APRN Primary Care Provider Allergies Active Allergy Reactions Criticality Noted Date Comments Amoxicillin-Pot Clavulanate GI Intolerance Low 03/03/2018 Sucralfate Itching Low 04/13/2016 Codeine Itching Low 03/20/2016 Gabapentin Other (See Comments) Medium 03/20/2016 colon pain Levofloxacin In D5w Other (See Comments) Medium 2016 Muscle spasms Levofloxacin Other (See Comments) Medium 07/20/2017 Muscle spasm Nitrofurantoin Macrocrystal GI Intolerance Medium 03/03/2018 Dm-Guaifenesin Er Itching Medium 05/03/2017 Sertraline Itching Low 03/20/2016 face Sulfa Antibiotics Itching Medium 03/20/2016 Medications promethazine (PHENERGAN) 25 MG tablet Take by mouth. 6 Active celecoxib (CeleBREX) 200 MG capsule 6 Active clobetasol (TEMOVATE) 0.05 % cream 6 Active hydrocortisone 2.5 % ointment 7 Active diphenoxylate-at ropine (LOMOTIL) 2.5-0.025 MG per tabletIndication s:Diarrhea, unspecified type 2 PO with each loose stool, max of 8 per day 40 tablet 1 7 Active dexlansoprazole (DEXILANT) 60 MG capsuleIndicatio ns:Gastroesophag eal reflux disease without esophagitis,Technical Systems Architect michaela gastritis without bleeding, unspecified gastritis type Take 1 capsule by mouth Daily. 90 capsule 2 9 Active estradiol (ESTRACE VAGINAL) 0.1 MG/GM vaginal creamIndications :Menopause,Vagin al dryness, menopausal Insert 0.5 g into the vagina 3 (Three) Times a Week. 127.5 g 1 9 Active valACYclovir (VALTREX) 500 MG tablet TAKE ONE TABLET BY MOUTH ONCE DAILY 30 tablet 2 9 Active fluticasone (FLONASE) 50 MCG/ACT nasal spray USE 1 SPRAY(S) IN EACH NOSTRIL ONCE DAILY 1 bottle 2 9 Active OTEZLA 30 MG tablet 9 Active calcipotriene (DOVONEX) 0.005 % cream APPLY TO PSORIASIS TWICE DAILY NEEDED 5 9 Active Chlorcyclizine-P seudoephed (STAHIST AD) 25-60 MG tabletIndication s:Acute URI,ETD (Eustachian tube dysfunction), bilateral Take 1/2 to 1 tab po q 8 hours prn congestion 42 tablet 9 Active predniSONE (DELTASONE) 10 MG tabletIndication s:Acute URI Take 60 mg po day 1, 50 mg day 2, 40 mg day 3, 30 mg day 4, 20 mg day 5, 10 mg day 6 21 tablet 9 Active benzonatate (TESSALON) 200 MG capsule TAKE 1 CAPSULE BY MOUTH THREE TIMES DAILY NEEDED 45 capsule 1 9 Active mometasone-formo terol (DULERA) 200-5 MCG/ACT inhalerIndicatio ns:Acute bronchitis, unspecified organism Inhale 2 puffs 2 (Two) Times a Day. 3 inhaler 1 9 Active Desloratadine (CLARINEX PO) Take by mouth Daily. Active levalbuterol (XOPENEX) 1.25 MG/3ML nebulizer solutionIndicati ons:Mild intermittent asthma, unspecified whether complicated Take 1 ampule by nebulization Every 4 (Four) Hours As Needed for Wheezing or Shortness of Air. 72 ampule 9 Active cyclobenzaprine (FLEXERIL) 10 MG tabletIndication s:Muscle spasm Take 1 tablet by mouth 3 (Three) Times a Day As Needed for Muscle Spasms. for muscle spams 90 tablet 1 9 Active HYDROcodone-acet aminophen (NORCO) 5-325 MG per tablet Take 1 tablet by mouth Every 6 (Six) Hours As Needed for Moderate Pain . 10 tablet 9 Active ondansetron (ZOFRAN) 4 MG tabletIndication s:Non-intractabl e vomiting with nausea, unspecified vomiting type TAKE 1 TABLET EVERY 8 HOURS NEEDED FOR NAUSEA OR VOMITING 30 tablet 9 Active levothyroxine (SYNTHROID, LEVOTHROID) 100 MCG tabletIndication s:Hypothyroidism , unspecified type TAKE 1 TABLET BY MOUTH ONCE DAILY 14 tablet 9 Active dicyclomine (BENTYL) 10 MG capsuleIndicatio ns:Right lower quadrant abdominal pain,Diarrhea, unspecified type TAKE ONE CAPSULE BY MOUTH EVERY 6 HOURS NEEDED FOR DIARRHEA OR CRAMPS 30 capsule 0 Active phenazopyridine (PYRIDIUM) 200 MG tabletIndication s:Dysuria,Acute cystitis without hematuria TAKE 1 TABLET BY MOUTH THREE TIMES DAILY NEEDED FOR BLADDER SPASMS 30 tablet 0 Active Active Problems Problem Noted Date Diagnosed Date WAI (obstructive sleep apnea) 05/06/2018 Allergic rhinitis 08/20/2016 Cold sore 08/20/2016 Depression 08/20/2016 GERD without esophagitis 08/20/2016 Hyperlipidemia 08/20/2016 Mitral regurgitation 08/20/2016 Osteoarthritis 08/20/2016 Sciatica 08/20/2016 Hypothyroidism 04/13/2016 Irritable bowel syndrome 03/20/2016 Change in hearing of left ear 03/20/2016 Immunizations Immunization Administration Dates Next Due Fluzone High-Dose 65+YRS 10/08/2016 Pneumococcal Conjugate 13-Valent (PCV13) 019 Zostavax 04/17/2016 Family History Medical History Relation Name Comments Lung cancer Mother Relation Name Status Comments Mother Social History Tobacco Use Types Packs/Day Years Used Date Smoking Tobacco: Former Cigarettes 0.8 34 Smokeless Tobacco: Never Tobacco Cessation:Counseling Given: Yes Alcohol Use Standard Drinks/Week Comments Yes 0 [...] file Not on file Not on file Last Filed Vital Signs Vital Sign Reading Time Taken Comments Blood Pressure 138/84 05/24/2019 3:28 PM EDT Pulse 84 05/24/2019 3:28 PM EDT Temperature 35.9 C (96.6 F) 05/24/2019 3:28 PM EDT Respiratory Rate 20 03/30/2019 2:02 PM EDT Oxygen Saturation 98% 11/16/2018 2:46 PM EDT Inhaled Oxygen Concentration - - Weight 87.1 kg (192 lb) 05/24/2019 3:28 PM EDT Height 157.5 cm (5' 2 ) 03/30/2019 2:02 PM EDT Body Mass Index 35.12 03/30/2019 2:02 PM EDT Plan of Treatment Health Maintenance Due Date Last Done Comments DXA SCAN 1950 COVID-19 Vaccine (#1) 02/10/1956 TDAP/TD VACCINES (1 - Tdap) 1970 COLOGUARD 02/10/1996 COLON CANCER SCREENING 5 YEA R SIGMOIDOSCOPY 02/10/1996 CT COLONOGRAPHY 02/10/1996 FECAL OCCULT BLOOD TEST 02/10/1996 FIT Testing (1 year) 02/10/1996 HEPATITIS C SCREENING 01/01/2016 MAMMOGRAM 04/06/2018 04/06/2016 PT PLAN OF CARE 08/24/2018 Pneumococcal Vaccine 50+ (2 of 2 - PPSV23, PCV20, or PCV21) 2019 12/15/2018 ZOSTER VACCINE (3 of 3) 2019 12/15/2018, 04/17 LIPID PANEL 03/30/2020 03/30/2019, 12/05, 07/21/2016, Additional history exists INFLUENZA VACCINE 04/06/2025 06/29/2018, 10/08/2016 COLONOSCOPY 07/15/2025 07/15/2015 COLORECTAL CANCER SCREENING 07/15/2025 ANNUAL WELLNESS VISIT 10/18/2025 10/18/2024 Procedures Procedure Name Priority Date/Time Associated Diagnosis Comments LIPID PANEL W/ CHOL/HDL RATIO Routine 03/30/2019 2:47 PM EDT Mixed hyperlipidemia SCANNED - COLONOSCOPY 07/15/2015 from Last 3 Months or Most Recently Relevant to Health Maintenance Results * (ABNORMAL) Lipid Panel With / Chol / HDL Ratio (03/30/2019 2:47 PM EDT) Total Cholesterol 243(H) 0 - 200 mg/dL [facility] Triglycerides 666(H) 0 - 150 mg/dL [facility] HDL Cholesterol 29(L) 40 - 60 mg/dL [facility] VLDL Cholesterol CANCELED mg/dL [facility] Comment: Test not performed Unable to calculate Result canceled by the ancillary. LDL Cholesterol CANCELED mg/dL [facility] Comment: Test not performed Unable to calculate Result canceled by the ancillary. Chol/HDL Ratio 8.38 [facility] Blood 03/30/2019 2:47 PM EDT 03/30/2019 Narrative [facility] ([facility]) - 03/31/2019 9:09 AM EDT Performed at: [address] [place] [address] [id number] Prototype Engineer: Kentrell Auguste MD, Phone: [phone] Patient Fasting: N Rubén Pisano MD LAB BLOOD ORDERABLES Edited Res ult - Final [facility] ([facility]) [address] [place] [address], [place] [phone] [facility] [address] [place] [address], [place] [phone] * SCANNED - COLONOSCOPY (07/15/2015) Rubén Pisano MD CHART REVIEW TABS Final Resu lt from Last 3 Months or Most Recently Relevant to Health Maintenance Insurance [employer] MEDICARE ADVANTAGE Care Teams Surgical Supply Assistant Relationship Specialty Start Date End Date Sandy Cooper [place] [address] PCP - General Family Medicine 07/07/19
--- OUTSIDE RECORDS SUMMARY | 2025-07-16 11:31 | XMS_ITS | Encounter Summary ---
Author Organization Healthcare Address [address] [place] [address] Care Team Providers Care Slack Line Yarder Name Role Phone Sandy Cooper APRN Primary Care Provider [phone] Carmen Mcleod LPN Unavailable Unavailabl e Emili Foster Unavailable Unavailabl e Encounter Details Date Type Department Care Team (Late st Contact Info) Description 12/24/2023 Outside Procedure External Location [address] [place] [address] Elida Lozano Social History Tobacco Use Types Packs/Day Years [...] place to sleep or slept in a care home (including now)? No 11/04/2023 Utilities Answer Date [...] Visit Obstetrics & Gynecology [address] [place] [address] Rafael Ravi MD [address] [place] [address] documented as of this encounter Procedures Procedure Name Priority Date/Time Associated Diagnosis Comments US ABDOMEN 12/24/2023 3:29 PM EDT documented in this encounter Results * US Abdomen (12/24/2023 3:29 PM EDT) Anatomical Region Laterality Modality Abdomen Ultrasound 12/24/2023 3:29 PM EDT Narrative 12/25/2023 11:10 AM EDT [place] [id number] Name: OMER SUAREZ Exam Date: 12/24/2023 : 1950 Age 73 years Gender: F Physician: ELIDA LOZANO Facility: [facility] Facility HSV: Outpatient Exam: ABDOMEN US ABDOMEN ULTRASOUND HISTORY: Pain Multiple transverse and longitudinal scans were performed of the abdomen. FINDINGS: The gallbladder is surgically absent. Common bile the measures 5 mm in caliber which is normal. Liver measures 15.2 cm in length with increased echogenicity, suggestive of steatosis.. No intrahepatic biliary ductal dilatation. No suspicious liver masses. Pancreas is mostly obscured. Right kidney measures 11.5 cm in length and left kidney measures 10.3 cm in length. Normal echotexture of the kidneys. The left and right kidney shows no evidence of obstruction. Spleen is normal in size measures 12.0 cm. No suspicious splenic lesion. IMPRESSION: Hepatic steatosis, otherwise unremarkable. Dictated By: Cydney Yoon Transcribed By: Cydney Grace Transcribed On: 12/25/2023 10:58 AM Electronically signed by: Cydney Yoon 12/25/2023 Thank you for referring OMER SUAREZ to [facility]. Legally authenticated by TORO JOY 2023-12-25 10:58:49 Procedure Note Provider, Generic [place] - 12/25/[address] [address] Name: OMER SUAREZ Exam Date: 12/24/2023 : 1950 Age 73 years Gender: F Physician: ELIDA LOZANO Facility: [facility] Facility HSV: Outpatient Exam: ABDOMEN US ABDOMEN ULTRASOUND HISTORY: Pain Multiple transverse and longitudinal scans were performed of theabdomen. FINDINGS: The gallbladder is surgically absent. Common bile the measures 5mm in caliber which is normal. Liver measures 15.2 cm in length with increased echogenicity, suggestiveof steatosis.. No intrahepatic biliary ductal dilatation. No suspicious liver masses. Pancreas is mostly obscured. Right kidney measures 11.5 cm in length andleft kidney measures 10.3 cm in length. Normal echotexture of the kidneys. Theleft and right kidney shows no evidence of obstruction. Spleen is normal in size measures 12.0 cm. No suspicious splenic lesion. IMPRESSION: Hepatic steatosis, otherwise unremarkable. Dictated By: Cydney Yoon Transcribed By: Cydney Grace Transcribed On: 12/25/2023 10:58 AM Electronically signed by: Cydney Yoon 12/25/2023 Thank you for referring OMER SUAREZ to [facility]. Legally authenticated by TORO JOY 2023-12-25 10:58:49 us Elida W Case IMG US PROCEDURES Final Result documented in [...] documented as of this encounter Care Teams Slack Line Yarder Relationship Specialty Start Date End Date Sandy Cooper APRN [address] [place] [address] PCP - General 01/17/21 Carmen Mcleod LPN VALUE-BASED TRANSFORMATION PROGRAM Licensed Practical Nurse 10/12/24 04/10/25 Emili Foster Clinical Jewel Hole Gauger 05/21/25 06/25/25 documented as of this encounter
--- OUTSIDE RECORDS SUMMARY | 2025-07-16 11:31 | XMS_ITS | Encounter Summary ---
Author Organization Healthcare Address [address] [place] [address] Care Team Providers Care Structural Steel Ironworker Name Role Phone Sandy Cooper APRN Primary Care Provider [phone] Carmen Mcleod LPN Unavailable Unavailabl e Emili Foster Unavailable Unavailabl e Encounter Details Date Type Department Care Team (Late st Contact Info) Description 11/01/2023 Outside Procedure External Location [address] [place] [address] Henna Henry, SR. VENDOR MANAGEMENT ASSOCIATE, DNP [address] [place] [address] Social History Tobacco Use Types [...] place to sleep or slept in a retirement (including now)? No 11/04/2023 Utilities Answer Date [...] Visit Obstetrics & Gynecology [address] [place] [address] Rafael Ravi MD [address] [place] [address] documented as of this encounter Procedures Procedure Name Priority Date/Time Associated Diagnosis Comments US BREAST LIMITED LEFT 11/01/2023 1:47 PM EST documented in this encounter Results * US Breast Limited Left (11/01/2023 1:47 PM EST) Anatomical Region Laterality Modality Breast Left Ultrasound 11/01/2023 1:47 PM EST Narrative 11/01/2023 3:25 [place] [address] Name: OMER SUAREZ Exam Date: 11/01/2023 : 1950 Age 73 Gender: F Physician: Henna Henry Facility: [facility] Facility HSV: Outpatient Exam: US BREAST LTD LT LEFT BREAST ULTRASOUND, limited HISTORY: Pain, history of recent boil FINDINGS: No cystic or solid mass is present. Echotexture is unremarkable. IMPRESSION: No discrete mass BI-RADS 2: Benign RECOMMENDATION: Annual mammography Dictated By: HOLLY TRUONG Transcribed By: Holly Truong Transcribed On: 11/01/2023 3:09 PM Electronically signed by: HOLLY TRUONG 11/01/2023 Thank you for referring OMER SUAREZ to [facility]. Legally authenticated by POPE HOLLY Arnold 2023-11-01 15:09:07 Procedure Note Provider, Generic [place] - 11/01/2023 [place] [address] Name: OMER SUAREZ Exam Date: 11/01/2023 : 1950 Age 73 Gender: F Physician: Henna Henry Facility: [facility] Facility HSV: Outpatient Exam: US BREAST LTD LT LEFT BREAST ULTRASOUND, limited HISTORY: Pain, history of recent boil FINDINGS: No cystic or solid mass is present. Echotexture isunremarkable. IMPRESSION: No discrete mass BI-RADS 2: Benign RECOMMENDATION: Annual mammography Dictated By: HOLLY TRUONG Transcribed By: Holly Truong Transcribed On: 11/01/2023 3:09 PM Electronically signed by: HOLLY TRUONG 11/01/2023 Thank you for referring OMER SUAREZ to [facility]. Legally authenticated by POPE HOLLY Arnold 2023-11-01 15:09:07 us Henna Henry SR. VENDOR MANAGEMENT ASSOCIATE, DNP IMG BI PROCEDURES Fin al Result documented [...] documented as of this encounter Care Teams Structural Steel Ironworker Relationship Specialty Start Date End Date Sandy Cooper APRN [address] [place] [phone] PCP - General 01/17/21 Carmen Mcleod LPN VALUE-BASED TRANSFORMATION PROGRAM Licensed Practical Nurse 10/12/24 04/10/25 Emili Foster Clinical Stringed Instrument Tuner 05/21/25 06/25/25 documented as of this encounter
--- OUTSIDE RECORDS SUMMARY | 2025-07-16 11:32 | XMS_ITS | Encounter Summary ---
Author Organization Healthcare Address [address] [place] [address] Care Team Providers Care Memorandum Statement Clerk Name Role Phone Sandy Cooper APRN Primary Care Provider [phone] Emili Foster Unavailabl linn Encounter Details Date Type Department Care Team (Late st Contact Info) Description 05/22/2025 Telephone Obstetrics & Gynecology [address] [place] [address] Rafael Ravi MD [address] [place] [address] Social History Tobacco Use Types Packs/Day Years [...] often do you attend chur ch or synagogue services? Never 10/13/2024 Do you belong to any clubs o r organizations such as jainism groups, unions, fraternal or athletic groups, or [...] declined 05/22/2025 How often do you attend jainism or synagogue serv ices? Patient declined 05/22/2025 Do you belong to any clubs o r organizations such as jainism groups, unions, fraternal or athletic groups, or [...] drinks on one occasion? Patient declined 05/22/2025 [facility]at [facility] [place] - Occupational Stress Questionnaire Answer Date Recorded [...] any time in the past 12 m [facility], were you homeless or living in a care home (including now)? No 05/22/2025 [facility] Utilities Answer Date Recorded In the [...] as of this encounter Functional Status * AUDIT-C Score [...] Author No Risk Indicated 05/22/2025 10:22 AM Nancy Covington * Question Answer Date of Assessment Author 1. Wish to be (Past 1 Month) No 025 10:22 AM EDT Nancy Bright 2. Non-Specific Active Suici prosper Thoughts (Past 1 Month) No 05/22/2025 10:22 AM EDT Alberto Bright 6. Suicidal Behavior (Lifetime) No 10:22 AM EDT Nancy Bright documented as of this encounter Miscellaneous Notes * Telephone Encounter - Kathryn Foster - 05/22/2025 4:00 PM EDT 05/22/25 scheduled appt per [employer] ZMT documented in this encounter Plan of Treatment Upcoming Encounters Date Type Department Care Team (Late st Contact Info) Description 08/23/2025 1:15 PM EST Office Visit Obstetrics & Gynecology [address] [place] [address] Rafael Ravi MD [address] [place] [address] documented as of this encounter [...] documented as of this encounter Care Teams Memorandum Statement Clerk Relationship Specialty Start Date End Date Sandy Cooper APRN [address] [place] [address] PCP - General 01/17/21 Emili Foster Clinical Cost Recovery Technician 05/21/25 06/25/25 documented as of this encounter
--- OUTSIDE RECORDS SUMMARY | 2025-07-16 11:32 | XMS_ITS | Encounter Summary ---
Author Organization Healthcare Address [address] [place] [address] Care Team Providers Care Emergency Department Name Role Phone Sandy Cooper APRN Primary Care Provider [phone] Emili Foster Unavailable Unavailabl e Reason for Visit * Reason Comments Health Maint. Encounter Details Date Type Department Care Team (Late st Contact Info) Description 05/29/2025 Patient Outreach POPULATION HEALTH [address], [address] [place] [address] Emili Foster Health Maint. Social History Tobacco Use Types Packs/Day Years [...] often do you attend chur ch or confucianist services? Never 10/13/2024 Do you belong to any clubs o r organizations such as rastafari groups, unions, fraternal or athletic groups, or [...] declined 05/22/2025 How often do you attend rastafari or confucianist serv ices? Patient declined 05/22/2025 Do you belong to any clubs o r organizations such as rastafari groups, unions, fraternal or athletic groups, or [...] on one occasion? Patient declined 05/22/2025 [facility] Occupat ional [facility] - Occupational Stress Questionnaire Answer Date Recorded [...] any time in the past 12 m [facility], were you homeless or living in a alf (including now)? No 05/22/2025 [facility] Utilities Answer Date Recorded In the past [...] Bridget Mcmullen documented as of this encounter Miscellaneous Notes * Progress Notes - Emili Foster - 05/29/2025 3:25 PM EDT Care Gap Outreach Chart reviewed on 05/29/2025 Avis Suarez is due/overdue for the following preventive services:Colorectal Cancer Screening. Loan Assistant Needed: No Loan Assistant ID: [Insert] Action Plan Outreach completed:2nd Attempt Outcome: No answer, unable to leave voice message.Reminder letter sent. Tasks set for appointment review/ patient reminder? Yes Additional information: Colorectal testing due. Colonoscopy ordered 05/21/2025. Not completed. Patient is not eligible for Cologuard. Follow-up scheduled for 06/28/2025 For transportation questions, concerns, and/or assistance, please contact our main Population Health line at [phone]. Completed by: Emili Foster [facility] - Population Health [address], [address] [place] [id number] documented in this encounter Plan of Treatment Upcoming Encounters Date Type Department Care Team (Late st Contact Info) Description 08/23/2025 1:15 PM EST Office Visit Obstetrics & Gynecology [address] [place] [address] Rafael Ravi MD [address] [place] [address] documented as of this encounter [...] documented as of this encounter Care Teams Emergency Department Relationship Specialty Start Date End Date Sandy Cooper APRN [address] [place] [phone] PCP - General 01/17/21 Emili Foster Clinical Photoengraving Retoucher 05/21/25 06/25/25 documented as of this encounter
--- OUTSIDE RECORDS SUMMARY | 2025-07-16 11:32 | XMS_ITS | Encounter Summary ---
Author Organization Healthcare Address [address] [place] [address] Care Team Providers Care Die Tester Name Role Phone Sandy Cooper APRN Primary Care Provider [phone] Emili Foster Unavailabl e Encounter Details Date Type Department Care Team (Latest Contact Info) Description 05/23/2025 Travel Social History Tobacco Use Types Packs/Day Years [...] week 10/13/2024 How often do you attend [facility] or shinto services? Never 10/13/2024 Do you belong to any clubs o r organizations such as latter-day groups, unions, fraternal or athletic groups, or [...] declined 05/22/2025 How often do you attend latter-day or shinto serv ices? Patient declined 05/22/2025 Do you belong to any clubs o r organizations such as latter-day groups, unions, fraternal or athletic groups, or [...] drinks on one occasion? Patient declined 05/22/2025 [facility] of Occup[facility] ional Health - Occupational [...] any time in the past [address] [facility], were you homeless or living in a retirement (including now)? No 05/22/2025 [facility] Utilities Answer Date Recorded In the past 12 months has th e [employer], gas, oil, or water [employer] threatened to shut off services in your [...] Deneen Sifuentes documented as of this encounter Plan of Treatment Upcoming Encounters Date Type Department Care Team (Late st Contact Info) Description 08/23/2025 1:15 PM EST Office Visit Obstetrics & Gynecology [address] [place] [address] Rafael Ravi MD [address] [place] [address] documented as of this encounter Visit Diagnoses [...] documented as of this encounter Care Teams Die Tester Relationship Specialty Start Date End Date Sandy Cooper APRN [address] [place] [address] PCP - General 01/17/21 Emili Foster Clinical Fire Control Mechanic 05/21/25 06/25/25 documented as of this encounter
--- OUTSIDE RECORDS SUMMARY | 2025-07-16 11:32 | XMS_ITS ---
Author Organization [facility] Address [address] [place] [address] Care Team Providers Care Powertrain Calibration Engineer Name Role Phone Sandy Cooper APRN Primary Care Provider [phone] Clinical Executive Secretary Social Welfare Program Status:Closed (Closed) Start date:05/21/2025 Enrollment reason:Identified using referral data End date:06/25/2025 Close reason:Patient graduated Overview This episode type is for outpatient Clinical Executive Secretary Social Welfare enrolling patients in their program. Continued Care and Services Coordination
--- OUTSIDE RECORDS SUMMARY | 2025-07-16 11:32 | XMS_ITS | Encounter Summary ---
Author Organization Healthcare Address [address] [place] [address] Care Team Providers Care Regulatory Affairs Spec Name Role Phone Enrique Neely APRN Primary Care Provider [phone] Laura Tinajero MALTED MILK MASHER Unavailable Unavailable Carmen Mcleod MALTED MILK MASHER Unavailable Unavailabl e Emili Foster Unavailable Unavailabl e Encounter Details Date Type Department Care Team (Late Contact Info) Description 03/16/2022 Outside Procedure External Location [address] [place] [address] Enrique Neely, MACHINE CERAMIC COATER [address] [place] [address] Social History Tobacco Use Types Packs/Day Years Used Date Smoking Tobacco: Former Cigarettes 0.5 20 1 965 - 1984 Smokeless Tobacco: Never Alcohol Use Standard Drinks/Week Comments Never 0 (1 standard drink = 0.6 oz pur e alcohol) PHQ-2 Answer Date Recorded Patient Health Questionnaire-2 Score 0 01/16/2022 Comments No Sex and Gender Information Value Date Recorded Sex Assigned at Not on file Legal Sex Female 8:22 PM EDT Gender Identity Not on file Sexual Orientation Not on file COVID-19 Exposure Response Date Recorded In the last 10 days, have yo u been in contact with someone who was confirmed or suspected to have Coronavirus/COVID-19? No / Unsure 03/19/2022 1:34 PM EDT documented as of this encounter Plan of Treatment Upcoming Encounters Date Type Department Care Team (Late Contact Info) Description 08/23/2025 1:15 PM EST Office Visit Obstetrics & Gynecology [address] [place] [address] Rafael Ravi MD [address] [place] [address] documented as of this encounter Procedures Procedure Name Priority Date/Time Associated Diagnosis Comments DEXA BONE DENSITY 03/16/2022 12: 56 PM EDT documented in this encounter Results * Dexa Bone Density (03/16/2022 12:56 PM EDT) Anatomical Region Laterality Modality L-spine Radiographic Maria Fernanda ging 03/16/2022 12:5 6 PM EDT Narrative 03/16/2022 2:40 PM EDT [address] [address] Name: OMER CHAVIRA Exam Date: 03/16/2022 : 1950 Age 72 Gender: F Physician: ENRIQUE NEELY Facility: [facility] Facility HSV: Outpatient Exam: DEXA BONE DENSITY AX BONE MINERAL DENSITOMETRY, DEXA SCAN CLINICAL HISTORY: Screening for osteoporosis. Comparison: None . FINDINGS: Bone densitometry calculations of the lumbar spine and proximal femurs were obtained. Average BMD for the lumbar spine from L1-L4 is 1.222 g/sq cm. T-score is 0.2. Z-score is 1.9. Dual femur BMD is 1.000 g/sq cm. T-score is -0.1. IMPRESSION: 1. Normal BMD of the lumbar spine. 2. Normal BMD of the proximal femurs. Images reviewed, interpreted and dictated by Dr. Lopez. Transcribed by Jaziel Mendoza PA-C Dictated By: Holly Lopez Transcribed By: Holly Lopez Transcribed On: 03/16/2022 2:28 PM Electronically signed by: Holly Lopez 03/16/2022 Thank you for referring OMER CHAVIRA to [facility]. Legally authenticated by POPE HOLLY Arnold 2022-03-16 14:28:33 Procedure Note Provider, Terell [place] - 03/16/2022 [place] [address] Name: OMER CHAVIRA Exam Date: 03/16/2022 : 1950 Age 72 Gender: F Physician: ENRIQUE NEELY Facility: [facility] Facility HSV: Outpatient Exam: DEXA BONE DENSITY AX BONE MINERAL DENSITOMETRY, DEXA SCAN CLINICAL HISTORY: Screening for osteoporosis. Comparison: None . FINDINGS: Bone densitometry calculations of the lumbar spine andproximal femurs were obtained. Average BMD for the lumbar spine from L1-L4 is 1.222 g/sq cm. T-score is 0.2. Z-score is 1.9. Dual femur BMD is 1.000 g/sq cm. T-score is -0.1. IMPRESSION: 1. Normal BMD of the lumbar spine. 2. Normal BMD of the proximal femurs. Images reviewed, interpreted and dictated by Dr. Lopez. Transcribed by Jaziel Mendoza PA-C Dictated By: Holly Lopez Transcribed By: Holly Lopez Transcribed On: 03/16/2022 2:28 PM Electronically signed by: Holly Lopez 03/16/2022 Thank you for referring OMER CHAVIRA to [facility]. Legally authenticated by POPE HOLLY Arnold 2022-03-16 14:28:33 Enrique Neely APRN IMG DXA PROCEDURES Final Re sult documented in this encounter Visit Diagnoses Not on filedocumented in this encounter Additional Health Concerns Infection Onset Date Last Indicated Resolved Time MRSA 11/19/2021 11/19/2021 COVID-19 Rule-Out 11/23/2024 11/23/2024 11/24/2024 11:17 AM EDT Assessment Noted Time A fall risk assessment has been complete d for the patient 03/12/2022 3:54 PM EDT documented as of this encounter Care Teams Regulatory Affairs Spec Relationship Specialty Start Date End Date Enrique Neely APRN [address] [place] [address] PCP - General 01/17/21 Laura Tinajero LPN [employer] [place] [address] TCM Nurse 10/20/22 10/21/22 Carmen Mcleod LPN VALUE-BASED TRANSFORMATION PROGRAM Licensed Practical Nurse 10/12/24 04/10/25 Emili Foster Clinical Racker Octave Board 05/21/25 06/25/25 documented as of this encounter
--- OUTSIDE RECORDS SUMMARY | 2025-07-16 11:32 | XMS_ITS | Encounter Summary ---
Author Organization Healthcare Address [address] [place] [address] Care Team Providers Care Mandrel Puller Name Role Phone Sandy Cooper APRN Primary Care Provider [phone] Emili Foster Unavailabl e Encounter Details Date Type Department Care Team (Latest Contact Info) Description 06/19/2025 Travel Social History Tobacco Use Types Packs/Day [...] week 10/13/2024 How often do you attend [facility] or evangelical services? Never 10/13/2024 Do you belong to any clubs o r organizations such as hindu groups, unions, fraternal or athletic groups, or [...] declined 05/22/2025 How often do you attend hindu or evangelical serv ices? Patient declined 05/22/2025 Do you belong to any clubs o r organizations such as hindu groups, unions, fraternal or athletic groups, or [...] [facility] - Occupational [...] any time in the past 12 m [facility], were you homeless or living in a halfway (including now)? No 05/22/2025 [facility] Utilities Answer Date Recorded In the past 12 months has th e [employer], gas, oil, or water [employer] threatened to shut off services in your [...] EST Office Visit Obstetrics & Gynecology [address] [place] [address] Rafael Ravi MD [address] [place] [address] documented as of this [...] documented as of this encounter Care Teams Mandrel Puller Relationship Specialty Start Date End Date Sandy Cooper APRN [address] [place] [address] PCP - General 01/17/21 Emili Foster Clinical Paper Goods Machine Set Up Operator 05/21/25 06/25/25 documented as of this encounter
--- OUTSIDE RECORDS SUMMARY | 2025-07-16 11:32 | XMS_ITS | Encounter Summary ---
Author Organization [facility] Address [address] [place] [address] Care Team Providers Care Smoke Room Operator Name Role Phone Sandy Cooper APRN Primary Care Provider [phone] Emili Foster Unavailable Unavailabl e Reason for Referral * Imaging (Routine) - Authorized Specialty Diagnoses / Procedures Referred By Mona calloway Referred To Contact Gastroenterology Diagnoses Screening for colon cancer Procedures Colonoscopy Snady Cooper APRN [address] [place] [address] Phone: tel: fax: Referral ID Status Reason Start Date Expiration Date Visits Requested Visits Authorized [id number] Authorized Specialty Services Required 05/21/2025 11/20/2026 1 1 Reason for Visit * Reason Comments Health Maint. Encounter Details Date Type Department Care Team (Late Contact Info) Description 05/21/2025 Patient Outreach POPULATION HEALTH [address], [address] [place] [address] Emili Foster Health Maint. Social [...] often do you attend chur ch or baptist services? Never 10/13/2024 Do you belong to any clubs o r organizations such as yazidism groups, unions, fraternal or athletic groups, or [...] Date Recorded Patient Health Questionnaire-2 Score 2 11/23/2024 PHQ-9 Answer Date Recorded Patient Health Questionnaire-9 [...] declined 05/22/2025 How often do you attend yazidism or baptist serv ices? Patient declined 05/22/2025 Do you belong to any clubs o r organizations such as yazidism groups, unions, fraternal or athletic groups, or [...] drinks on one occasion? Patient declined 05/22/2025 [facility] of Occupat ional Health - Occupational Stress [...] any time in the past 12 m [facility], were you homeless or living in a fpc (including now)? No 05/22/2025 [facility] Utilities Answer Date Recorded In [...] on file documented as of this encounter Miscellaneous Notes * Progress Notes - Emili Foster - 05/21/2025 2:58 PM EDT Care Gap Outreach Chart reviewed on 05/21/2025 Avis Suarez is due/overdue for the following preventive services:Colorectal Cancer Screening. Interpretor Needed: No Interpretor ID: [Insert] Action Plan Outreach completed:1st Attempt Outcome: Cine[employer] message sent Program Enrollment and tasks set for additional outreach Additional information: Colorectal testing due. Colonoscopy ordered 05/21/2025. Not completed. Patient is not eligible for Cologuard. Follow-up scheduled for 05/29/2025 For transportation questions, concerns, and/or assistance, please contact our main Population Health line at [phone]. Completed by: Emili Foster [facility] - Population Health [address], [address] [place] [id number] documented in this encounter Plan of Treatment Upcoming Encounters Date Type Department Care Team (Late st Contact Info) Description 08/23/2025 1:15 PM EST Office Visit Obstetrics & Gynecology [address] [place] [address] Rafael Ravi MD [address] [place] [address] Scheduled Orders Name Type Priority Associated Diagnoses Orde r Schedule Colonoscopy Endoscopy Routine Screening for colon cancer Expected: 05/21/2025 (Approximate), Expires: 11/18/2026 documented as of this encounter Visit Diagnoses Diagnosis Screening for colon cancer- Primary Special screening for malignant neoplasms, colon documented in this encounter Additional Health Concerns Infection Onset Date Last Indicated Resolved Time MRSA 11/19/2021 11/19/2021 Assessment Noted Time PHQ-9 Depression Total Score: 6 11/24/19 2:15 PM EDT A fall risk assessment has been complete d for the patient 11/23/2024 2:15 PM EDT A Body Mass Index follow-up plan has been documented for the patient 11/23/2024 2:50 PM EDT documented as of this encounter Care Teams Smoke Room Operator Relationship Specialty Start Date End Date Sandy Cooper APRN [address] [place] [address] PCP - General 01/17/21 Emili Foster Clinical Lead Miner 05/21/25 06/25/25 documented as of this encounter
--- OUTSIDE RECORDS SUMMARY | 2025-07-16 11:32 | XMS_ITS | Encounter Summary ---
Author Organization Healthcare Address [address] [place] [address] Care Team Providers Care Ergonomics Technician Name Role Phone Sandy Cooper APRN Primary Care Provider [phone] Emili Foster Unavailable Unavailabl e Reason for Visit * Reason Comments Med Refill Encounter Details Date Type Department Care Team (Late st Contact Info) Description 06/19/2025 Refill [facility] [address] [place] [address] Henna Henry, STEPHENIE, DNP [address] [place] [address] Non-recurrent acute serous otitis media of both ears Social History Tobacco Use Types Packs/Day Years [...] often do you attend chur ch or islam services? Never 10/13/2024 Do you belong to [...] How often do you attend rastafarian or islam serv ices? Patient declined 05/22/2025 Do you [...] drinks on one occasion? Patient declined 05/22/2025 [facility] - Occupational Stress Questionnaire Answer Date [...] any time in the past 12 m [facility], were you homeless or living in a snf (including now)? No 05/22/2025 [facility] Utilities Answer Date Recorded In [...] encounter Miscellaneous Notes * Telephone Encounter - Valerie De La Rosa PharmD - 06/21/2025 8:39 AM EDT 1 medication(s) has been approved per protocol. documented in this encounter Plan of Treatment Upcoming Encounters Date Type Department Care Team (Late st Contact Info) Description 08/23/2025 1:15 PM EST Office Visit Obstetrics & Gynecology [address] [place] [address] Rafael Ravi MD [address] [place] [address] documented as of this encounter Visit Diagnoses Diagnosis Non-recurrent acute serous otitis media of both ears documented in this encounter Additional Health Concerns [...] documented as of this encounter Care Teams Ergonomics Technician Relationship Specialty Start Date End Date Sandy Cooper APRN [address] [place] [address] PCP - General 01/17/21 Emili Foster Clinical Rabbit Fancier 05/21/25 06/25/25 documented as of this encounter
--- OUTSIDE RECORDS SUMMARY | 2025-07-16 11:32 | XMS_ITS | Continuity of Care Document ---
Author Organization [facility] & [place], [facility] Address [address] [place] [address] Care Team Providers Care Redye Hand Name Role Phone CHIN ENRIQUE Primary Care Provider Assessment No assessment recorded. [...] Address Organization Details Recorded Time Peripheral edema 416782740 Active 2023 Oscar Pearce MD [address], [place], [address] , [facility] & [place] 4 14:02:31 Hyperlipid emia 25253687 Active 2023 Oscar Pearce MD [address], [place], [address] , [facility] & [place] 4 14:07:48 Obstructiv e sleep apnea syndrome 09872638 Active 2023 Oscar Pearce MD [address], [place], [address] , [facility] & [place] 4 14:08:18 Dyspnea on exertion 72794221 Active 2023 Oscar Pearce MD [address], [place], [address] , [place] - [facility] - [place] & [place] 4 14:09:43 Gastroesop hageal reflux disease 192623766 Active 2023 Domenica cortes null, [place] - [facility] - [place] & [place] 4 15:27:45 Spinal enthesopat hy of cervical region Active 2023 Josie Boggs null, [place] - [facility] - [place] & [place] 4 11:28:24 Myofascial pain 393436345 Active 2023 Josie Boggs null, [place] [facility] [place] & [place] 4 11:28:24 Left tarsal tunnel syndrome 9343305546221 07 Active 2023 Josie Boggs null, [place] [facility] [place] & [place] 4 11:28:26 Abdominal pain 28861135 Active 2023 Josie Boggs null, [place] - [facility] - [place] & [place] 4 11:28:43 Neck pain 82428477 Active 2023 Josie Boggs null, [place] - [facility] - [place] & [place] 4 11:30:10 Sensorineu ral hearing loss 56562500 Active 2023 MANUEL STRAUSS, AUD [address], [place], [address] , [place] - [facility] - [place] & [place] 4 11:18:02 Problem Notes None recorded. Procedures Surgical History Date Name Laterality Status Provider Name and Address Organization Details Recorded Time 024 Injection Only completed Josie Boggs [place] - [facility] - [place] & [place] 01/20/2024 15:42:58 024 Injection Only completed Josie Boggs [place] - [facility] - [place] & [place] 01/12/2024 14:42:54 023 Abdominal Surgery completed [facility]i [facility] [place] [facility] [place] 10/20/2023 13:34:23 022 completed Yesi HANSEN - [facility] & [place] 10/20/2023 13:33:50 022 Date of Last Colonoscopy completed Yesi York [facility] & [place] 10/20/2023 13:33:50 [address] Cholecystectomy completed Yesi York LPNT [facility] & [place] 10/20/2023 13:34:23 997 Date of Last Pap Smear completed Yesi York [facility] & [place] 10/20/2023 13:33:50 Other completed Yesi York LP NT [facility] & [place] 10/20/2023 13:34:23 Hysterectomy completed Domenica HANSEN - [facility] & [place] 01/06/2024 15:28:33 Imaging Results None recorded. Procedure Notes None recorded. Medical Equipment None Reported. Allergies Allergen ID Allergen Name Allergen Category Reaction Reaction Severity Criticality Documentation Date Start Date Code Code System Note Provider Name and Address Organization Details Recorded Time 182543 Substance with sulfonami de structure and antibacte rial mechanism of action (substanc e) medicatio n Not available Not available Not available 10/20/2023 23586 8003 SNOMED Yesi Martinez [facility], [facility] [place] 4 13:34:42 257509 codeine medicatio n Not available Not available Not available 12/22/2023 2670 RxNorm Olivia Pisano, STEPHENIE [address], [place], [address] , [place] - [facility] & [place] 4 17:01:04 Medications Name Sig Start Date [...] Time Tobacco Smoking Status Former Smoker Yesi Martinez null, [place] - [facility] - [place] & [place] 10/20/2023 13:34:15 Do You Have An Advance Directive? Yes [email or web address] Information not available 10/20/2023 Are You Blind Or Do You Have Difficulty Seeing? No Information not available 10/20/2023 What Was The Date Of Your Most Recent Tobacco Screening? 10/19/2023 [email or web address] Information not available 10/20/2023 Are You Passively Exposed To Smoke? No [email or web address] Information not available 10/20/2023 How Much Tobacco Do You Smoke? No [email or web address] Information not available 10/20/2023 How Many Years Have You Smoked Tobacco? 20 [email or web address] Information not available 10/20/2023 Sex: Unknown Functional Status Question Answer Note LastModified by Organizat ion Details LastModified Time Do you use any illicit or recreational drugs? No [email or web address] Information not available 10/20/2023 What is your level of alcohol consumption? Occasional [email or web address] Information not available 10/20/2023 Do you or have you ever used smokeless tobacco? [id number] [email or web address] Information n ot available 10/20/2023 What is your exercise level? Occasional [email or web address] Information not available 10/20/2023 Mental Status Question Answer Note LastModified by Organization D etails LastModified Time Do you feel stressed (tense, restless, nervous, or anxious, or unable to sleep at night)? [id number] [email or web address] Information not available 10/20/2023 Family History Relationship [...] Immunizations Vaccine Type Date Status Note Provider Nam e and Address Organization Details Recorded Time zoster recombinant 2 completed Elicia Barton null, [place] - [facility] - [place] & [place] 04/15/2023 13:41:44 zoster recombinant 2 completed Elicia Barton null, [place] - [facility] - [place] & [place] 04/15/2023 13:41:44 Influenza, high-dose, quadrivalent, PF 0 completed Elicia Barton null, [place] - [facility] - [place] & [place] 04/15/2023 13:41:44 Influenza, high-dose, quadrivalent, PF 2 completed Elicia Barton null, [place] - [facility] - [place] & [place] 04/15/2023 13:41:44 MMR 3 completed Elicia Barton null, [place] - [facility] - [place] & [place] 04/15/2023 13:41:44 MMR 3 completed Elicia Barton null, [place] - [facility] - [place] & [place] 04/15/2023 13:41:44 COVID-19, mRNA, LNP-S, PF, 30 mcg/0.3 mL dose 1 completed Elicia Barton null, [place] - [facility] & [place] 04/15/2023 13:41:44 COVID-19, mRNA, LNP-S, PF, 30 mcg/0.3 mL dose 1 completed Elicia Barton null, [place] - [facility] & [place] 04/15/2023 13:41:44 COVID-19, mRNA, LNP-S, PF, 30 mcg/0.3 mL dose 1 completed Elicia Barton null, [place] - [facility] & [place] 04/15/2023 13:41:44 Pneumococcal conjugate PCV20, polysaccharide [id number] conjugate, adjuvant, PF 2 completed Elicia Barton null, [place] - [facility] - [place] & [place] 04/15/2023 13:41:44 COVID-19, mRNA, LNP-S, PF, 30 mcg/0.3 mL dose, radha-sucrose 2 completed Elicia Barton null, [place] - [facility] - [place] & [place] 04/15/2023 13:41:44 Pneumococcal conjugate PCV 13 9 completed Elicia Barton null, [place] [facility] [place] & [place] 04/15/2023 13:41:44 zoster live 6 completed Elicia Barton null, [place] [facility] [place] & [place] 04/15/2023 13:41:44 Influenza, high-dose, trivalent, PF 1 completed Elicia Barton null, [place] [facility] [place] & [place] 04/15/2023 13:41:44 Hep B, adult 3 completed Elicia Barton null, [place] [facility] [place] & [place] 04/15/2023 13:41:44 Hep B, adult 3 completed Elicia Barton null, [place] [facility] [place] & [place] 04/15/2023 13:41:44 Hep B, adult 3 completed Elicia Barton null, [place] [facility] [place] & [place] 04/15/2023 13:41:44 Past Encounters Encounter ID Performer Location Encounter Start Date Encounter Closed Date Diagnosis/Indication Diagnosis SNOMED-CT Code Diagnosis ICD10 Code Diagnosis IMO Codes Diagnosis Note [id number] HERIBERTO MENDEZ [facility] [place] [address] [facility] [address] [place] [address] 06/28/2025 14:12:15 06/28/2025 14:26:58 Sensorineural hearing loss 98981398 H90.3 Health Concerns Section Related Observation LastModified by Organization Detai ls LastModified Time None Recorded Concern Status LastModified by Organization Details LastModified Time None Recorded Payers Encounter Date Sequence Insurance Name Policy Number Policy Cunningham Covered Member ID Cunningham Member ID Guarantor Name 06/28/2025 1 [employer] (MEDICARE REPLACEMENT /ADVANTAGE - PPO) [id number] [facility] [id number] [facility] Notes Date Note Type Note Provider Name and Address Organization Details Recorded Time 06/28/2025 text/html Patient was seen today for a hearing aid service. Cleaned and adjusted hearing aids this date. MANUEL STRAUSS, AUD [address] [facility] [address], [place], [address], [facility] - [facility] - [place] & [place] 06/28/2025 14:27:49 OBGyn Episode No OBEpisode recorded.
--- OUTSIDE RECORDS SUMMARY | 2025-07-16 11:32 | XMS_ITS | Encounter Summary ---
Author Organization Healthcare Address [address] [place] [address] Care Team Providers Care Education General Manager Name Role Phone Enrique Neely APRN Primary Care Provider [phone] Laura Tinajero ASSISTANT OCEANOGRAPHER Unavailable Unavailable Carmen Mcleod ASSISTANT OCEANOGRAPHER Unavailable Unavailabl e Emili Foster Unavailable Unavailabl e Encounter Details Date Type Department Care Team (Late Contact Info) Description 03/16/2022 Outside Procedure External Location [address] [place] [address] Enrique Neely, HYPERBARIC TECH [address] [place] [address] Social History Tobacco Use Types [...] EST Office Visit Obstetrics & Gynecology [address] [place] [address] Rafael Ravi MD [address] [place] [address] documented as of this encounter Procedures Procedure Name Priority Date/Time Associated Diagnosis Comments MAMMOGRAPHY BREAST SCREENING TOMOSYNTHESIS BILATERAL 03/16/2022 12:56 PM EDT documented in this encounter Results * Mammography Breast Screening Tomosynthesis Bilateral (03/16/2022 12:56 PM EDT) Anatomical Region Laterality Modality Breast Bilateral Mammography 03/16/2022 12:5 6 PM EDT Narrative 03/16/2022 2:32 PM EDT [facility] [address] [place] [address] Name: OMER CHAVIRA Exam Date: 03/16/2022 : 1950 Age 72 Gender: F Physician: ENRIQUE NEELY Facility: [facility] Facility HSV: Outpatient Exam: CANDI SCRN MAMMO W/CAD BILAT MAMMOGRAM SCREENING BILATERAL WITH TOMOSYNTHESIS HISTORY: Routine screening exam COMPARISON: April 28, 2021 FINDINGS: Standard views were obtained. There are scattered fibroglandular densities. Stable bilateral retroareolar densities. Benign-appearing calcifications are present. No mass, suspicious calcifications or architectural distortion is present. IMPRESSION: No mammographic evidence of malignancy. BI-RADS 2: Benign RECOMMENDATION: Annual mammography CAD was utilized during interpretation. The patient will be sent a letter from the mammography department with their mammography findings. Dictated By: Holly Lopez Transcribed By: Holly Lopez Transcribed On: 03/16/2022 2:20 PM Electronically signed by: Holly Lopez 03/16/2022 Thank you for referring OMER CHAVIRA to [facility]. Legally authenticated by POPE HOLLY Arnold 2022-03-16 14:20:53 Procedure Note Provider, [facility] - 03/16/[address] [address] Name: OMER CHAVIRA Exam Date: 03/16/2022 : 1950 Age 72 Gender: F Physician: ENRIQUE NEELY Facility: [facility] Facility HSV: Outpatient Exam: CANDI SCRN MAMMO W/CAD BILAT MAMMOGRAM SCREENING BILATERAL WITH TOMOSYNTHESIS HISTORY: Routine screening exam COMPARISON: April 28, 2021 FINDINGS: Standard views were obtained. There are scatteredfibroglandular densities. Stable bilateral retroareolar densities. Benign-appearing calcifications are present. No mass, suspicious calcifications or architectural distortion is present. IMPRESSION: No mammographic evidence of malignancy. BI-RADS 2: Benign RECOMMENDATION: Annual mammography CAD was utilized during interpretation. The patient will be sent a letter from the mammography department withtheir mammography findings. Dictated By: Holly Lopez Transcribed By: Holly Lopez Transcribed On: 03/16/2022 2:20 PM Electronically signed by: Holly Lopez 03/16/2022 Thank you for referring OMER CHAVIRA to [facility]. Legally authenticated by POPE HOLLY Arnold 2022-03-16 14:20:53 us Enrique Neely APRN IMG BI PROCEDURES Final Res ult documented in this encounter Visit Diagnoses Not on filedocumented in this encounter Additional Health Concerns Infection Onset Date Last Indicated Resolved Time MRSA 11/19/2021 11/19/2021 COVID-19 Rule-Out 11/23/2024 11/23/2024 11/24/2024 11:17 AM EDT Assessment Noted Time A fall risk assessment has been complete d for the patient 03/12/2022 3:54 PM EDT documented as of this encounter Care Teams Education General Manager Relationship Specialty Start Date End Date Enrique Neely APRN [address] [place] [id number] PCP - General 01/17/21 Laura Tinajero LPN VALUE-[employer]ED [place] [address] TCM Nurse 10/20/22 10/21/22 Carmen Mcleod LPN VALUE-BASED TRANSFORMATION PROGRAM Licensed Practical Nurse 10/12/24 04/10/25 Emili Foster Clinical Tank Terminal Gauger 05/21/25 06/25/25 documented as of this encounter
--- OUTSIDE RECORDS SUMMARY | 2025-07-16 11:32 | XMS_ITS | Encounter Summary ---
Author Organization Healthcare Address [address] [place] [address] Care Team Providers Care Director Learning Services Name Role Phone Sandy Cooper APRN Primary Care Provider [phone] Emili Foster Unavailabl e Encounter Details Date Type Department Care Team (Late st Contact Info) Description 05/22/2025 Results Follow-Up [facility] [address] [place] [address] Guerda Machuca APRN [address] [place] [address] Social History Tobacco Use Types [...] often do you attend chur ch or holiness services? Never 10/13/2024 Do you belong to any clubs o r organizations such as spiritism groups, unions, fraternal or athletic groups, or [...] declined 05/22/2025 How often do you attend spiritism or holiness serv ices? Patient declined 05/22/2025 Do you belong to any clubs o r organizations such as spiritism groups, unions, fraternal or athletic groups, or [...] drinks on one occasion? Patient declined 05/22/2025 [employer] [facility] - Occupational Stress [...] in the past [address] [facility], were you homeless or living in a retirement (including now)? No 05/22/2025 [facility] [...] containing alcohol? Patient declined 05/22/2025 10:21 AM KENDYT Myrna Bright Q2: How many drinks containing alcohol do you have on a typical day when you are drinking? Patient declined 05/22/2025 10:21 AM Nancy Covington Q3: How often do you have six or more drinks on one occasion? Patient declined 05/22/2025 10:21 AM KENDYT Nancy Bright * Over the past 2 weeks, how often have you been bothered by any of the following problems? Question Answer Date of Assessment Author Little interest or pleasure in doing things Not at all 05/23/2025 10:09 AM Deneen Bocanegra Feeling down, depressed, or hopeless Not at all 05/23/2025 10:09 AM KENDYT Deneen Sifuentes Patient Health Questionnaire -2 Score 0 05/23/2025 10:09 AM EDT Deneen Sifuentes * Calculated C-SSRS Risk Score (Lifetime/Recent) Answer Date of Assessment Author No Risk Indicated 05/22/2025 10:22 AM Nancy Covington * Question Answer Date of Assessment Author 1. Wish to be (Past 1 Month) No 025 10:22 AM Nancy Covington 2. Non-Specific Active Suici prosper Thoughts (Past 1 Month) No 05/22/2025 10:22 AM EDT Alberto Bright 6. Suicidal Behavior (Lifetime) No 5 10:22 AM EDT Nancy Bright documented as of this encounter Plan of Treatment Upcoming Encounters Date Type Department Care Team (Late st Contact Info) Description 08/23/2025 1:15 PM EST Office Visit Obstetrics & Gynecology [address] [place] [address] Rafael Ravi MD [address] [place] [address] documented as of this encounter [...] documented as of this encounter Care Teams Director Learning Services Relationship Specialty Start Date End Date Snady Cooper APRN [address] [place] [address] PCP - General 01/17/21 Emili Foster Clinical Liquor Gallery Operator 05/21/25 06/25/25 documented as of this encounter
--- OUTSIDE RECORDS SUMMARY | 2025-07-16 11:32 | XMS_ITS | Encounter Summary ---
Author Organization Healthcare Address [address] [place] [address] Care Team Providers Care Low Pressure Boiler Tender Name Role Phone Sandy Cooper APRN Primary Care Provider [phone] Emili Foster Unavailabl e Encounter Details Date Type Department Care Team (Latest Contact Info) Description 05/22/2025 Travel Social History Tobacco Use Types Packs/Day [...] often do you attend [facility] or yazidism services? Never 10/13/2024 Do you belong to any clubs o r organizations such as amish groups, unions, fraternal or athletic groups, or [...] declined 05/22/2025 How often do you attend amish or yazidism serv ices? Patient declined 05/22/2025 Do you belong to any clubs o r organizations such as amish groups, unions, fraternal or athletic groups, or [...] drinks on one occasion? Patient declined 05/22/2025 [facility] - Occupational [...] any time in the past 12 m [facility], were you homeless or living in a penitentiary (including now)? No 05/22/[address] [facility] Utilities Answer Date Recorded In the past 12 months has th e [employer], gas, oil, or water [employer] threatened to shut off services in your [...] are drinking? Patient declined 05/22/2025 10:21 AM KENDYT Nancy Bright Q3: How often do you have six or more drinks on one occasion? Patient declined 05/22/2025 10:21 AM KENDYT Nancy Bright * Calculated C-SSRS Risk Score (Lifetime/Recent) Answer Date of Assessment Author No Risk Indicated 05/22/2025 10:22 AM KENDYT Nancy Bright * Question Answer Date of Assessment Author 1. Wish to be (Past 1 Month) No 025 10:22 AM Nancy Covington 2. Non-Specific Active Suici prosper Thoughts (Past 1 Month) No 05/22/2025 10:22 AM KENDYT Alberto Bright 6. Suicidal Behavior (Lifetime) No 10:22 AM KENDYT Nancy Bright documented as of this encounter Plan of Treatment Upcoming Encounters Date Type Department Care Team (Late st Contact Info) Description 08/23/2025 1:15 PM EST Office Visit Obstetrics & Gynecology [address] [place] [address] Rafael Ravi MD [address] [place] [address] documented as of this encounter [...] documented as of this encounter Care Teams Low Pressure Boiler Tender Relationship Specialty Start Date End Date Sandy Cooper APRN [address] [place] [address] PCP - General 01/17/21 Emili Foster Clinical Plumbers And Top Helpers 05/21/25 06/25/25 documented as of this encounter
--- OUTSIDE RECORDS SUMMARY | 2025-07-16 11:32 | XMS_ITS | Encounter Summary ---
Author Organization Healthcare Address [address] [place] [address] Care Team Providers Care Irrigation Specialist Name Role Phone Sandy Cooper APRN Primary Care Provider [phone] Carmen Mcleod LPN Unavailable Unavailabl e Emili Foster Unavailable Unavailabl e Encounter Details Date Type Department Care Team (Late st Contact Info) Description 05/19/2024 Outside Procedure External Location [address] [place] [address] Henna Henry, LACE ROLLER, DNP [address] [place] [address] Social History Tobacco Use Types Packs/Day Years Used Date Smoking Tobacco: Former Cigarettes 1 20 0 09/06/1964 - 09/06/1981 Passive Smoke Exposure: Never Smokeless Tobacco: Never [...] Answer Date Recorded Patient Health Questionnaire-2 Score 4 05/19/2024 Hunger Vital Sign Answer Date Recorded Within [...] place to sleep or slept in a jail (including now)? No 11/04/2023 PHQ-9 Answer Date Recorded Patient Health Questionnaire-9 Score 14 05/19/2024 Utilities Answer Date Recorded In the past [...] Little interest or pleasure in doing things More than half the days 05/19/2024 2:42 PM EDT Kandi Mckenzie Feeling down, depressed, or hopeless More than half the days 05/19/2024 2:42 PM EDT Kandi Mckenzie Patient Health Questionnaire-2 Score 4 05/19/2024 2:42 PM EDT Kandi Mckenzie * Question Answer Date of Assessment Author Trouble falling or staying asleep, or sleeping too much Nearly every day 05/19/2024 2:42 PM EDT Kandi Mckenzie Feeling tired or having little energy More than half the days 05/19/2024 2:42 PM EDT Kandi Mckenzie Poor appetite or overeating Nearly every day 2:42 PM EDT Kandi Mckenzie Feeling bad about yourself - or that you are a failure or have let yourself or your family down Not at all 05/19/2024 2:42 PM EDT Kandi Mckenzie Trouble concentrating on things, such as reading the newspaper or watching television More than half the days 05/19/2024 2:42 PM EDT Kandi Mckenzie Moving or speaking so slowly that other people could have noticed? Or the opposite - being so fidgety or restless that you have been moving around a lot more than usual. Not at all 05/19/2024 2:42 PM EDT Kandi Mckenzie Thoughts that you would be better off or hurting yourself in some way Not at all 05/19/2024 2:42 PM KENDYT Kandi Mckenzie Patient Health Questionnaire-9 Score 14 05/19/2024 2:42 PM KENDYT Kandi Mckenzie * How difficult have these problems made it for you to do your work, take care of things at home, or get along with other people? Answer Date of Assessment Author Somewhat difficult 05/19/2024 2:42 PM EDT Kandi Mckenzie documented as of this encounter Plan of Treatment Upcoming Encounters Date Type Department Care Team (Late st Contact Info) Description 08/23/2025 1:15 PM EST Office Visit Obstetrics & Gynecology [address] [place] [address] Rafael Ravi MD [address] [place] [address] documented as of this encounter Procedures Procedure Name Priority Date/Time Associated Diagnosis Comments XR CHEST 2 VIEWS 05/19/2024 3:19 PM EDT documented in this encounter Results * XR Chest 2 Views (05/19/2024 3:19 PM EDT) Anatomical Region Laterality Modality Chest Digital Radiogra phy 05/19/2024 3:19 PM EDT Narrative 05/22/2024 11:[place] [address] Name: OMER SUAREZ Exam Date: 05/19/2024 : 1950 Age 74 years Gender: F Physician: Henna Henry Facility: [facility] Facility HSV: Outpatient Exam: CHEST 2 VIEWS EXAMINATION: XR CHEST 2 VIEWS CLINICAL STATEMENT: Chest wall discomfort COMPARISON:CXR 05/28/2023. FINDINGS: Heart is mildly enlarged.No consolidation.No pleural effusion. There is no pulmonary edema seen.No pneumothorax. Increased density overlying the lower lobes suspected to be due to body habitus. IMPRESSION: No evidence for acute cardiopulmonary process. Stable findings. Electronically signed by:Roger Barnes MD05/22/2024 11:26 AM EDT Dictated By: Roger Barnes Transcribed By: Transcribed On: 05/19/2024 3:34 PM Electronically signed by: Roger Barnes 05/19/2024 Thank you for referring OMER SUAREZ to [facility]. Legally authenticated by YANET SINGH 2024-05-19 15:34:40 Procedure Note Provider, [facility] - 05/22/2024 [place] [address] Name: OMER SUAREZ Exam Date: 05/19/2024 : 1950 Age 74 years Gender: F Physician: Henna Henry Facility: [facility] Facility HSV: Outpatient Exam: CHEST 2 VIEWS EXAMINATION: XR CHEST 2 VIEWS CLINICAL STATEMENT: Chest wall discomfort COMPARISON:CXR 05/28/2023. FINDINGS: Heart is mildly enlarged.No consolidation.No pleural effusion. There isno pulmonary edema seen.No pneumothorax. Increased density overlying thelower lobes suspected to be due to body habitus. IMPRESSION: No evidence for acute cardiopulmonary process. Stable findings. Electronically signed by:Roger Barnes MD05/22/2024 11:26 AM EDT RP Dictated By: Roger Barnes Transcribed By: Transcribed On: 05/19/2024 3:34 PM Electronically signed by: Roger Barnes 05/19/2024 Thank you for referring OMER SUAREZ to [facility]. Legally authenticated by YANET SINGH 2024-05-19 15:34:40 Henna Henry LACE ROLLER, DNP IMG XR PROCEDURES Fin al Result documented in this encounter Visit Diagnoses Not on filedocumented in this encounter Additional Health Concerns Infection Onset Date Last Indicated Resolved Time MRSA 11/19/2021 11/19/2021 COVID-19 Rule-Out 11/23/2024 11/23/2024 11/24/2024 11:17 AM EDT Assessment Noted Time PHQ-9 Depression Total Score: 14 024 2:42 PM EDT A fall risk assessment has been complete d for the patient 05/19/2024 2:42 PM EDT A Body Mass Index follow-up plan has been documented for the patient 05/19/2024 3:12 PM EDT documented as of this encounter Care Teams Irrigation Specialist Relationship Specialty Start Date End Date Sandy Cooper APRN [address] [place] [id number] PCP - General 01/17/21 Carmen Mcleod LPN VALUE-BASED TRANSFORMATION PROGRAM Licensed Practical Nurse 10/12/24 04/10/25 Emili Foster Clinical Social Services Designee 05/21/25 06/25/25 documented as of this encounter
--- OUTSIDE RECORDS SUMMARY | 2025-07-16 11:33 | XMS_ITS | Continuity of Care Document ---
Author Organization [facility] & [place], [facility] [place] Address [address] [place] [address] Care Team Providers Care Inspector Air Carrier Name Role Phone CHIN ENRIQUE Primary Care [...] Address Organization Details Recorded Time Peripheral edema 113630449 Active 2023 Oscar Pearce MD [address], [place], [address] , [facility] & [place] 4 14:02:31 Hyperlipid emia 21399543 Active 2023 Oscar Pearce MD [address], [place], [address] , [facility] & [place] 4 14:07:48 Obstructiv e sleep apnea syndrome 62696434 Active 2023 Oscar Pearce MD [address], [place], [address] , [facility] & [place] 4 14:08:18 Dyspnea on exertion 41599511 Active 2023 Oscar Pearce MD [address], [place], [address] , [place] - [facility] [place] & [place] 4 14:09:43 Gastroesop hageal reflux disease 953725649 Active 2023 Domenica cortes null, [place] [facility] [place] & [place] 4 15:27:45 Spinal enthesopat hy of cervical region Active 2023 Josie Boggs null, [place] [facility] [place] & [place] 4 11:28:24 Myofascial pain 707187370 Active 2023 Josie Boggs null[place] [place] 4 11:28:24 Left tarsal tunnel syndrome 6256303146521 07 Active 2023 Josie Boggs null[place] [place] 4 11:28:26 Abdominal pain 96355128 Active 2023 Josie Boggs null, [place] [facility] [place] & [place] 4 11:28:43 Neck pain 66597399 Active 2023 Josie Boggs null, [place] [place] & [place] 4 11:30:10 Sensorineu ral hearing loss 51304393 Active 2023 MANUEL STRAUSS, AUD [address], [place], [address] , [place] - [facility] - [place] & [place] 4 11:18:02 Problem Notes None recorded. Procedures Surgical History Date Name Laterality Status Provider Name and Address Organization Details Recorded Time 024 Injection Only completed Josie Boggs [place] [place] & [place] 01/20/2024 15:42:58 024 Injection Only completed Josie Boggs [place] & [place] 01/12/2024 14:42:54 023 Abdominal Surgery completed Yesi Martinez [place] [facility] & [place] 10/20/2023 13:34:23 022 completed Yesi HANSEN - [facility]NT [facility] & [place] 10/20/2023 13:33:50 022 Date of Last Colonoscopy completed Yesi [place] [facility] & [place] 10/20/2023 13:33:50 999 Cholecystectomy completed Yesi [place] [facility] & [place] 10/20/2023 13:34:23 997 Date of Last Pap Smear completed Yesi [place] [facility] & [place] 10/20/2023 13:33:50 Other completed Yesi [place] [facility] & [place] 10/20/2023 13:34:23 Hysterectomy completed Domenica HANSEN - [facility] & [place] 01/06/2024 15:28:33 Imaging Results None recorded. Procedure Notes None recorded. Medical Equipment None Reported. Allergies Allergen ID Allergen Name Allergen Category Reaction Reaction Severity Criticality Documentation Date Start Date Code Code System Note Provider Name and Address Organization Details Recorded Time 768345 Substance with sulfonami de structure and antibacte rial mechanism of action (substanc e) medicatio n Not available Not available Not available 10/20/2023 06602 8003 SNOMED Yesi Martinez [facility], [place] [facility] [place] 4 13:34:42 [id number] codeine medicatio n Not available Not available Not available 12/22/2023 2670 RxNorm [place] Pisano, STEPHENIE [address], [place], [address] , [place] - [facility] & [place] 4 17:01:04 Medications Name Sig Start Date [...] Yesi Martinez null, [place] - [facility] - [place] & [place] 10/20/2023 13:34:15 Do You Have An Advance Directive? Yes [email or web address] Information not available 10/20/2023 Are You Blind Or Do You Have Difficulty Seeing? No Information not available 10/20/2023 What Was The Date Of Your Most Recent Tobacco Screening? 10/19/2023 [email or web address] Information not available 10/20/2023 Are You Passively Exposed To Smoke? No Information not available 10/20/2023 How Much Tobacco Do You Smoke? No Information not available 10/20/2023 How Many Years Have You Smoked Tobacco? 20 [email or web address] Information not available 10/20/2023 Sex: Unknown Functional Status Question Answer Note LastModified by Organizat ion Details LastModified Time Do you use any illicit or recreational drugs? No [email or web address] Information not available 10/20/2023 What is your level of alcohol consumption? Occasional [email or web address] Information not available 10/20/2023 Do you or have you ever used smokeless tobacco? [id number] [email or web address] Information n ot available 10/20/2023 What is your exercise level? Occasional [email or web address] Information not available 10/20/2023 Mental Status Question Answer Note LastModified by Organization D etails LastModified Time Do you feel stressed (tense, restless, nervous, or anxious, or unable to sleep at night)? [id number] [email or web address] Information not available 10/20/2023 Family History Relationship [...] Disorder N Anesthesia Complications N Heart Attack (RI) N Obstructive Sleep Apnea Y Anxiety Disorder [...] Elicia Barton null, [place] - [facility] - [place] & [place] 04/15/2023 13:41:44 zoster recombinant 2 completed Elicia Barton null, [place] - [facility] - [place] & [place] 04/15/2023 13:41:44 Influenza, high-dose, quadrivalent, PF 0 completed Elicia Barton null, [place] - [facility] - [place] & [place] 04/15/2023 13:41:44 Influenza, high-dose, quadrivalent, PF 2 completed Elicia Barton null, [place] - [facility] - [place] & [place] 04/15/2023 13:41:44 MMR 3 completed Elicia Barton null, [place] - [facility] - [place] & [place] 04/15/2023 13:41:44 MMR 3 completed Elicia Barton null, [place] - [facility] - [place] & [place] 04/15/2023 13:41:44 COVID-19, mRNA, LNP-S, PF, 30 mcg/0.3 mL dose 1 completed Elicia Barton null, [place] - [facility] & [place] 04/15/2023 13:41:44 COVID-19, mRNA, LNP-S, PF, 30 mcg/0.3 mL dose 1 completed Elicia Barton null, [place] - [facility] & [place] 04/15/2023 13:41:44 COVID-19, mRNA, LNP-S, PF, 30 mcg/0.3 mL dose 1 completed Elicia Barton null, [place] - [facility] & [place] 04/15/2023 13:41:44 Pneumococcal conjugate PCV20, polysaccharide [id number] conjugate, adjuvant, PF 2 completed Elicia Barton null, [place] - [facility] - [place] & [place] 04/15/2023 13:41:44 COVID-19, mRNA, LNP-S, PF, 30 mcg/0.3 mL dose, radha-sucrose 2 completed Elicia [place] null, [place] - [facility] - [place] & [place] 04/15/2023 13:41:44 Pneumococcal conjugate PCV 13 9 completed Elicia [place] [facility] & [place] 04/15/2023 13:41:44 zoster live 6 completed Elicia [place] [facility] & [place] 04/15/2023 13:41:44 Influenza, high-dose, trivalent, PF 1 completed Elicia [place] [facility] & [place] 04/15/2023 13:41:44 Hep B, adult 3 completed Elicia [place] & [place] 04/15/2023 13:41:44 Hep B, adult 3 completed Elicia [place], [place] & [place] 04/15/2023 13:41:44 Hep B, adult 3 completed Elicia [place] & [place] 04/15/2023 13:41:44 Past Encounters Encounter ID Performer Location Encounter Start Date Encounter Closed Date Diagnosis/Indication Diagnosis SNOMED-CT Code Diagnosis ICD10 Code Diagnosis IMO Codes Diagnosis Note [id number] [facility] [address] [address] 06/28/2025 14:12:15 06/28/2025 14:26:58 Sensorineural hearing loss 56883504 H90.3 [id number] [facility] [address] [address] 07/12/2025 15:12:19 07/12/2025 15:14:38 Sensorineural hearing loss 24911789 H90.3 Health Concerns Section Related Observation LastModified by Organization Detai ls LastModified Time None Recorded Concern Status LastModified by Organization Details LastModified Time None Recorded Payers Encounter Date Sequence Insurance Name Policy Number Policy Cunningham Covered Member ID Cunningham Member ID Guarantor Name 07/12/2025 1 [employer] (MEDICARE REPLACEMENT /ADVANTAGE - PPO) [id number] 2 [facility] [id number] [facility] Notes Date Note Type Note Provider Name and Address Organization Details Recorded Time 07/12/2025 text/html Patient was seen today for a hearing aid service. Cleaned and adjusted hearing aids this date. MANUEL STRAUSS, AUD [address] , [place], [address], [facility] - [place] & [place] 07/12/2025 15:16:36 OBGyn Episode No OBEpisode recorded.
--- OUTSIDE RECORDS SUMMARY | 2025-07-16 11:33 | XMS_ITS | Encounter Summary ---
Author Organization Healthcare Address [address] [place] [address] Care Team Providers Care Railroad Police Name Role Phone Enrique Neely APRN Primary Care Provider [phone] Carmen Mcleod LPN Unavailable Unavailabl e Emili Foster Unavailable Unavailabl e Encounter Details Date Type Department Care Team (Late st Contact Info) Description 01/03/2025 Outside Procedure External Location [address] [place] [address] Enrique Neely APRN [address] [place] [address] Social History Tobacco Use Types [...] afraid of your partner or ex-partner? No 10/18/2024 Within the last year, have y ou been humiliated or emotionally abused in other ways by your partner or ex-partner? No Within the last year, have y ou been kicked, hit, slapped, or otherwise physically hurt by your partner or ex-partner? No 10/18/2024 Within the last year, have y ou been raped or forced to have any kind of sexual activity by your partner or ex-partner? No 10/18/2024 Social Connection and Isolation Panel Answer Date Recorded In a typical week, how many times do you talk on the phone with family, friends, or neighbors? Three times a week 10/13/2024 How often do you get togethe r with friends or relatives? Once a week 10/13/2024 How often do you attend chur ch or orthodox services? Never 10/13/2024 Do you belong to any clubs o r organizations such as zoroastrianism groups, unions, fraternal or athletic groups, or [...] Recorded Patient Health Questionnaire-2 Score 2 11/23/2024 [facility] - Occupational Stress Questionnaire Answer Date Recorded Do you feel stress - tense, restless, nervous, or anxious, or unable to sleep at night because your mind is troubled all the time - these days? To some extent 10/13/2024 Exercise Vital Sign Answer Date Recorde d On average, how many days pe r week do you engage in moderate to strenuous exercise (like a brisk walk)? 2 days 10/13/2024 On average, how many minutes do you engage in exercise at this level? 30 min 10/13/2024 Hunger Vital Sign Answer Date Recorded Within the past 12 months, y ou worried that your food would run out before you got the money to buy more. Never true 10/18/19 25 Within the past 12 months, t he food you bought just didn't last and you didn't have money to get more. Never true 10/18/2024 PRAPARE - Transportation Answer Date Re corded In the past 12 months, has l ack of transportation kept you from medical appointments or from getting medications? No 10/07 In the past 12 months, has l ack of transportation kept you from meetings, work, or from getting things needed for daily living? No 10/18/2024 Housing Stability Vital Sign Answer Abhinav e [...] Recorded Patient Health Questionnaire-9 Score 6 11/23/2024 Housing Stability Vital Sign Answer Abhinav e Recorded In the last 12 months, was t here a time when you were not able to pay the mortgage or rent on time? No 10/18/2024 In the past 12 months, how m any times have you moved where you were living? 0 10/18/2024 At any time in the past 12 m [facility], were you homeless or living in a fpc (including now)? No 10/18/2024 Safety and Environment Answer Date Benny rded [...] Recorded In the past 12 months has e electric, gas, oil, or water company threatened to shut off services in your home? No 10/18/2024 PHQ-2A Answer Date Recorded Patient Health Questionnaire-2 [...] Office Visit [facility] [address] [place] [address] Rafael Ravi MD [address] [place] [address] documented as of this encounter Procedures Procedure Name Priority Date/Time Associated Diagnosis Comments MAMMOGRAPHY BREAST SCREENING TOMOSYNTHESIS BILATERAL 01/03/2025 1:49 PM EDT documented in this encounter Results * Mammography Breast Screening Tomosynthesis Bilateral (01/03/2025 1:49 PM EDT) Anatomical Region Laterality Modality Breast Bilateral Mammography 01/03/2025 1:49 PM EDT Narrative 01/03/2025 3:10 PM EDT [address] [place] [address] Name: OMER SUAREZ Exam Date: 01/03/2025 : 1950 Age 74 years Gender: F Physician: ENRIQUE NEELY Facility: [facility] Facility HSV: Outpatient Exam: CANDI SCRN MAMMO W/CAD BILAT Exam: 3-D screening mammography including tomosynthesis and CAD (Computer Assisted Detection). Clinical indication: Asymptomatic screening exam Comparison: Exams to 2020 TECHNIQUE: Routine bilateral 2D screening mammogram with CC and MLO views obtained. 3-D tomosynthesis and Computer assisted detection were utilized for this exam. BREAST DENSITY: There are scattered areas of fibroglandular density FINDINGS: No suspicious mass, architectural distortion, or suspicious calcifications are present. IMPRESSION: No evidence of malignancy in either breast Recommendation: Annual screening mammography recommended in one year The results of this report will be communicated to the patient by letter in layman's terms. ACR BI-RADS: BI-RADS assessment category 1: Negative mammogram Mammography does not detect approximately 10-15% of breast cancers. A normal mammogram does not exclude breast cancer in a patient with palpable mass or abnormal findings on physical examination. These patients may need biopsies and when clinically indicated a biopsy should not be postponed because of a normal mammogram. If the patient has breast surgery or biopsy, FDA/MQSA Regulatory Guidelines mandate that this facility receive pathologic results for follow-up correlation. Electronically signed by: Sunil Ruiz MD 01/03/2025 03:06 PM EDT RP Dictated By: Sunil Ruiz Transcribed By: Transcribed On: 01/03/2025 2:31 PM Electronically signed by: Sunil Ruiz 01/03/2025 [facility]. Legally authenticated by BABS NAIR 2025-01-03 14:31:21 Procedure Note Provider, [facility] - 01/03/2025 [place] [address] Name: OMER SUAREZ Exam Date: 01/03/2025 : 1950 Age 74 years Gender: F Physician: ENRIQUE NEELY Facility: [facility] Facility HSV: Outpatient Exam: CANDI SCRN MAMMO W/CAD BILAT Exam: 3-D screening mammography including tomosynthesis and CAD(Computer Assisted Detection). Clinical indication: Asymptomatic screening exam Comparison: Exams to 2020 TECHNIQUE: Routine bilateral 2D screening mammogram with CC and MLOviews obtained. 3-D tomosynthesis and Computer assisted detection were utilizedfor this exam. BREAST DENSITY: There are scattered areas of fibroglandular density FINDINGS: No suspicious mass, architectural distortion, or suspicious calcifications are present. IMPRESSION: No evidence of malignancy in either breast Recommendation: Annual screening mammography recommended in one year The results of this report will be communicated to the patient by letterin layman's terms. ACR BI-RADS: BI-RADS assessment category 1: Negative mammogram Mammography does not detect approximately 10-15% of breast cancers. Anormal mammogram does not exclude breast cancer in a patient with palpable massor abnormal findings on physical examination. These patients may needbiopsies and when clinically indicated a biopsy should not be postponed because ofa normal mammogram. If the patient has breast surgery or biopsy, FDA/MQSA Regulatory Guidelines mandate that this facility receive pathologicresults for follow-up correlation. Electronically signed by: Sunil Ruiz MD 01/03/2025 03:06 PM EDTRP Dictated By: Sunil Ruiz Transcribed By: Transcribed On: 01/03/2025 2:31 PM Electronically signed by: Sunil Ruiz 01/03/2025 Thank you for referring OMER SUAREZ to [facility]. Legally authenticated by BABS NAIR 2025-01-03 14:31:21 us Enrique Neely APRN IMG BI PROCEDURES [...] documented as of this encounter Care Teams Railroad Police Relationship Specialty Start Date End Date Enrique Neely APRN [address] [place] [address] PCP - General 01/17/21 Carmen Mcleod LPN VALUE-BASED TRANSFORMATION PROGRAM Licensed Practical Nurse 10/12/24 04/10/25 Emili Foster Clinical Presentation Manager 05/21/25 06/25/25 documented as of this encounter
--- OUTSIDE RECORDS SUMMARY | 2025-07-16 11:33 | XMS_ITS | Encounter Summary ---
Author Organization Healthcare Address [address] [place] [address] Care Team Providers Care Building Superintendent Name Role Phone Enrique Neely APRN Primary Care Provider [phone] Laura Tinajero TECHNICAL SPECIALIST CYTOLOGY Unavailable Unavailable Carmen Mcleod TECHNICAL SPECIALIST CYTOLOGY Unavailable Unavailabl e Emili Foster Unavailable Unavailabl e Encounter Details Date Type Department Care Team ([facility] Contact Info) Description 04/28/2021 Outside Procedure External Location [address] [place] [address] Enrique Neely, GAS PROCESSING PLANT OPERATOR [address] [place] [address] Social History Tobacco Use Types Packs/Day Years Used Date Smoking Tobacco: Former Cigarettes 0.5 20 1 965 - 1985 Smokeless Tobacco: Never PHQ-2 Answer Date Recorded Patient Health Questionnaire-2 Score 0 04/16/2021 Comments Unknown Sex and Gender Information Value Date Recorded Sex Assigned at Not on file Legal Sex Female 8:22 PM EDT Gender Identity Not on file Sexual Orientation Not on file COVID-19 Exposure Response Date Recorded In the last month, have you been in contact with someone who was confirmed or suspected to have Coronavirus / COVID-19? No / Unsure 04/25/2021 1:35 PM EDT documented as of this encounter Plan of Treatment Upcoming Encounters Date Type Department Care Team (Late Contact Info) Description 08/23/2025 1:15 PM EST Office Visit Obstetrics & Gynecology [facility] [place] [address] Rafael Ravi MD [address] [place] [address] documented as of this encounter Procedures Procedure Name Priority Date/Time Associated Diagnosis Comments MAMMOGRAPHY BREAST SCREENING TOMOSYNTHESIS BILATERAL 04/28/2021 1:52 PM EDT documented in this encounter Results * Mammography Breast Screening Tomosynthesis Bilateral (04/28/2021 1:52 PM EDT) Anatomical Region Laterality Modality Breast Bilateral Mammography 04/28/2021 1:52 PM EDT Narrative 04/28/2021 3:16 [place] [address] Name: OMER SUAREZ Exam Date: 04/28/2021 : 1950 Age 71 Gender: F Physician: ENRIQUE NEELY Facility: [facility] Facility HSV: Outpatient Exam: CANDI SCRN MAMMO W/CAD BILAT MAMMOGRAM SCREENING BILATERAL WITH TOMOSYNTHESIS HISTORY: Routine screening exam COMPARISON: December 28, 2018 FINDINGS: Standard views were obtained. There are [...] Lopez Transcribed By: Holly Lopez Transcribed On: 04/28/2021 3:05 PM Electronically signed by: Holly Lopez 04/28/2021 Thank you for referring OMER SUAREZ to [facility]. Legally authenticated by POPE HOLLY Arnold 2021-04-28 15:05:16 Procedure Note Provider, [facility] - 04/28/2021 [place] [address] Name: OMER SUAREZ Exam Date: 04/28/2021 : 1950 Age 71 Gender: F Physician: ENRIQUE NEELY Facility: [facility] Facility HSV: Outpatient Exam: CANDI SCRN MAMMO W/CAD BILAT MAMMOGRAM SCREENING BILATERAL WITH TOMOSYNTHESIS HISTORY: Routine screening exam COMPARISON: December 28, 2018 FINDINGS: Standard views were obtained. There are scatteredfibroglandular densities. Benign-appearing calcifications are present. No mass,suspicious calcifications or architectural distortion is present. IMPRESSION: No mammographic evidence of malignancy. BI-RADS 2: Benign RECOMMENDATION: Annual mammography CAD was utilized during interpretation. The patient will be sent a letter from the mammography department withtheir mammography findings. Dictated By: Holly Lopez Transcribed By: Holly Lopez Transcribed On: 04/28/2021 3:05 PM Electronically signed by: Holly Lopez 04/28/2021 Thank you for referring OMER SUAREZ to [facility]. Legally authenticated by POPE HOLLY Arnold 2021-04-28 15:05:16 us Enrique Neely APRN IMG BI PROCEDURES [...] has been complete d for the patient 04/16/2021 2:49 PM EDT documented as of this encounter Care Teams Building Superintendent Relationship Specialty Start Date End Date Enrique Neely APRN [address] [place] [address] PCP - General 01/17/21 Laura Tinajero LPN [employer] [place] [address] TCM Nurse 10/20/22 10/21/22 Carmen Mcleod LPN VALUE-BASED TRANSFORMATION PROGRAM Licensed Practical Nurse 10/12/24 04/10/25 Emili Foster Clinical Osteopathic Resident 05/21/25 06/25/25 documented as of this encounter
--- OUTSIDE RECORDS SUMMARY | 2025-07-16 11:33 | XMS_ITS | Encounter Summary ---
Author Organization Healthcare Address [address] [place] [address] Care Team Providers Care Shot Core Drill Operator Name Role Phone Sandy Cooper APRN Primary Care Provider [phone] Emili Foster Unavailabl e Encounter Details Date Type Department Care Team (Latest Contact Info) Description 06/18/2025 Travel Social History Tobacco Use Types Packs/Day [...] week 10/13/2024 How often do you attend [facility] or adventism services? Never 10/13/2024 Do you belong to any clubs o r organizations such as zoroastrian groups, unions, fraternal or athletic groups, or [...] declined 05/22/2025 How often do you attend zoroastrian or adventism serv ices? Patient declined 05/22/2025 Do you belong to any clubs o r organizations such as zoroastrian groups, unions, fraternal or athletic groups, or [...] drinks on one occasion? Patient declined 05/22/2025 [facility] Occup[facility] ional [facility] - Occupational Stress [...] in a jail (including now)? No 05/22/2025 [facility] Utilities Answer Date Recorded In the past 12 months has th e [employer], gas, oil, or water [employer] threatened to shut off services in your [...] EST Office Visit Obstetrics & Gynecology [address] [place] [address] Rafael Ravi MD [address] [place] [address] documented as of this encounter [...] documented as of this encounter Care Teams Shot Core Drill Operator Relationship Specialty Start Date End Date Sandy Cooper APRN [address] [place] [address] PCP - General 01/17/21 Emili Foster Clinical Repossessor 05/21/25 06/25/25 documented as of this encounter
--- OUTSIDE RECORDS SUMMARY | 2025-07-16 11:33 | XMS_ITS | Encounter Summary ---
Author Organization Healthcare Address [address] [place] [address] Care Team Providers Care Prompt Care Rn Name Role Phone Sandy Cooper APRN Primary Care Provider [phone] Carmen Mcleod LPN Unavailable Unavailabl e Emili Foster Unavailable Unavailabl e Reason for Visit * Reason Comments Med Refill Encounter Details Date Type Department Care Team (Late st Contact Info) Description 01/30/2025 Refill [facility] [address] [place] [address] Sandy Cooper, FUELS ENGINEER [address] [place] [address] Social History Tobacco Use Types [...] any clubs o r organizations such as orthodoxy groups, unions, fraternal or athletic groups, or [...] Recorded Patient Health Questionnaire-2 Score 2 11/[facility]2024 [facility] Occupational Stress Questionnaire Answer Date [...] place to sleep or slept in a half-way (including now)? No 11/04/2023 PHQ-9 Answer Date [...] any time in the past [facility], were you homeless or living in a half-way (including now)? No 10/18/2024 Safety and Environment [...] Visit Obstetrics & Gynecology [address] [place] [address] Rafael Ravi MD [address] [place] [address] documented as of this encounter [...] documented as of this encounter Care Teams Prompt Care Rn Relationship Specialty Start Date End Date Sandy Cooper APRN [address] [place] [address] PCP - General 01/17/21 Carmen Mcleod LPN VALUE-BASED TRANSFORMATION PROGRAM Licensed Practical Nurse 10/12/24 04/10/25 Emili Foster Clinical Electron Tube Assembler 05/21/25 06/25/25 documented as of this encounter
--- OUTSIDE RECORDS SUMMARY | 2025-07-16 11:33 | XMS_ITS | Clinical Summary ---
Author Organization [facility] Address [address] [place] [address] Care Team Providers Care Director Video Name Role Phone Sandy Cooper APRN Primary Care Provider [phone] Allergies Active Allergy Reactions Criticality Noted Date Comments Codeine Itching Medium 03/20/2016 Sulfa Drugs Itching Medium 08/21/2011 Medications clindamycin (Clindagel) 1 % gel APPLY TO ACNE UP TO TWICE DAILY NEEDED FOR SPOT TREATMENT 022 Active mupirocin (Bactroban) 2 % ointment APPLY TWICE DAILY TO NOSTRILS,BELLY BUTTON, AND FINGERNAILS THE FIRST 2 DAYS OF EVERY MONTH THEREAFTER 023 Active cycloSPORINE (Restasis) 0.05 % ophthalmic emulsion INSTILL 1 DROP INTO EACH EYE TWICE DAILY 60 each 3 023 Active cimetidine (Tagamet) 400 MG tabletIndication s:Hiatal hernia Take 1 tablet (400 mg) by mouth every night. 90 tablet 023 Active Additional Information Patient taking differently:400 mg OralAs needed, Reported on 06/25/2025 phenazopyridine (Pyridium) 200 MG tabletIndication s:Dysuria Take 1 tablet by mouth three times daily if needed for discomfort, irritation or pain 90 tablet 9 024 Active Additional Information Patient taking differently: As needed, Take 1 tablet by mouth three times daily if needed for discomfort, irritation or pain, Reported on 06/25/2025 brimonidine (AlphaGAN P) 0.15 % ophthalmic solution Administer 1 drop into both eyes 1 (one) time each day in the morning. 10 mL 3 024 Active Protonix 40 MG EC tablet Take 1 tablet (40 mg) by mouth 1 (one) time each day before breakfast. Do not crush, chew, or split. 90 tablet 3 025 2025 Active celecoxib (CeleBREX) 200 MG capsuleIndicatio ns:Fibromyalgia Take 1 capsule (200 mg) by mouth 2 (two) times a day. 180 capsule 3 025 Active mometasone-formo terol (Dulera 200) 200-5 MCG/ACT inhalerIndicatio ns:Mild intermittent asthma, uncomplicated Inhale 2 puffs in the morning and 2 puffs before bedtime. Rinse mouth with water after use to reduce aftertaste and incidence of candidiasis. Do not swallow. 13 g 1 025 Active ipratropium-albu terol (Duo-Neb) 0.5-2.5 mg/3 mL nebulizer solutionIndicati ons:Mild intermittent asthma, uncomplicated Take 3 mL by nebulization every 4 to 6 hours as needed for wheezing or shortness of breath. 180 mL 1 025 Active hydrocortisone 2.5 % ointment APPLY OINTMENT EXTERNALLY TWICE DAILY 29 g 025 Active fenofibrate (Tricor) 145 MG tablet Take 1 tablet by mouth daily. 30 tablet 5 025 2024 Active clobetasol (Temovate) 0.05 % cream as needed. Active furosemide (Lasix) 20 MG tablet Take 1 tablet by mouth daily. Active timolol (Timoptic) 0.25 % ophthalmic solution Administer 1 drop into both eyes 2 times a day. Active brimonidine 0.2 % OP ophthalmic solution INSTILL 1 DROP INTO EACH EYE EVERY 12 HOURS Active clindamycin 1 % gel APPLY THIN LAYER TOPICALLY TO AFFECTED AREA ONCE DAILY Active Fenofibrate 150 MG capsule Take 1 capsule by mouth daily. 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 90 tablet 025 Active valACYclovir (Valtrex) 500 MG tabletIndication s:HSV (herpes simplex virus) infection Take 1 tablet by mouth daily as needed (cold sore). 30 tablet 025 Active traMADol (Ultram) 50 MG tabletIndication s:Diffuse abdominal pain Take 1 tablet by mouth every 8 hours as needed for severe pain. 10 tablet Active estradiol (Estrace) 0.1 MG/GM vaginal cream Insert 2 g into the vagina every other day. At bedtime. 42.5 g 3 025 2025 Active Azelastine HCl 137 MCG/SPRAY solutionIndicati ons:Non-recurren t acute serous otitis media of both ears Administer 1 spray into each nostril 2 times a day. As directed 30 mL 11 Active azithromycin (Zithromax) 250 MG tabletIndication s:Acute bronchitis due to other specified organisms Take 2 tabs (500 mg) by mouth today, than 1 daily for 4 days. 6 tablet Active azelastine (Astelin) 0.1 % nasal sprayIndications :Non-recurrent acute serous otitis media of both ears Administer 1 spray into each nostril 2 (two) times a day. Use in each nostril as directed 30 mL 12 024 2024 Discontinued predniSONE (Deltasone) 20 MG tabletIndication s:Acute bronchitis due to other specified organisms Take 2 tablets by mouth daily for 5 days. 10 tablet 025 2024 Active Problems Problem Noted Date Diagnosed Date Epiretinal membrane, both eyes 10/20/2024 Acute recurrent maxillary sinusitis 03/14/2024 Allergic rhinitis due to cats 08/24/2022 Allergic rhinitis caused by mold 07/15/2022 Mild intermittent asthma, uncomplicated 07/15/20 Former smoker 07/15/2022 Astigmatism of both eyes 02/07/2022 At high risk for falls 12/23/2021 Obesity (BMI 35.0-39.9 without comorbidity) 09/07 History of psychiatric treatment 08/15/2021 Primary open-angle glaucoma, left eye, mild stag e 08/01/2021 OAG (open angle glaucoma) suspect, high risk, ri ght 08/01/2021 Non-Sjogrens keratoconjunctivitis sicca of both eyes 08/01/2021 Vitreous floater, left 08/01/2021 Ocular hypertension, bilateral 06/09/2020 WAI (obstructive sleep apnea) 05/06/2018 Allergic rhinitis 08/20/2016 Depression 08/20/2016 GERD without esophagitis 08/20/2016 High cholesterol 08/20/2016 Hypothyroidism 04/13/2016 Irritable bowel syndrome 03/20/2016 Anxiety, generalized 12/01/2014 Resolved Problems Problem Noted Date Diagnosed Date Resolved Date Incarcerated incisional hernia 11/12/2021 12/19/2021 Overview (11/12/2021): Added automatically from request for surgery [id number] Pharyngitis 10/17/2021 05/27/2025 Asthma 05/06/2020 05/31/2023 Mitral regurgitation 08/20/2016 023 Osteoarthritis 08/20/2016 05/27/2025 Fibromyalgia 12/01/2014 05/31/2023 Encounters Date Type Department Care Team Description 07/15/2025 Refill [facility] [address] [place] [address] Sandy Cooper, STEPHENIE 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 07/15/2025 Refill [facility] [address] [place] [address] Guerda Machuca, STEPHENIE 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 06/25/2025 10:20 AM EDT Office Visit [facility] [address] [place] [address] Nat Bass MD Acute bronchitis due to other specified organisms (Primary Dx) 06/25/2025 Travel 06/19/2025 1:30 PM EDT Office Visit [facility] [address] [place] [address] Rafael Ravi MD Pelvic and perineal pain (Primary Dx); Vaginal atrophy; Strain of psoas muscle, unspecified laterality, initial encounter 06/19/2025 1:00 PM EDT Ancillary Procedure Obstetrics & Gynecology [address] [place] [address] Pelvic and perineal pain 06/19/2025 Refill [facility] [address] [place] [address] Henna Henry, YARN MERCERIZER OPERATOR, DNP Non-recurrent acute serous otitis media of both ears 06/19/2025 Travel 06/18/2025 Travel 05/29/2025 Patient Outreach [facility] [address], [address] [place] [address] Emili Foster [facility]. 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 from Last 3 Months Immunizations Immunization Administration Dates Next Due Hep A, Adult 2024 Hep B, adult 07/30/2003,02/26/2003,01/11/2003 Influenza, High-dose, Split Virus, Trivalent, Injectable, preservative free 07/07/2024 Influenza, high-dose, quadrivalent 07/28,08/11/2021,05/30/2020,2016 MMR 02/26/2003,01/24/2003 Pfizer-BioNTech COVID-19 Vac cine (Burrows Cap) 12+ years (radha-sucrose) 03/25/2022 Pfizer-BioNTech COVID-19 Vac cine (Purple Cap) 12+ 08/06/2021,11/23/2020,11/04/2020,2020 Pneumococcal 20-alexis Conj Vaccine 03/25/2022 Pneumococcal Conjugate PCV 13 12/15/2018, 019 Tdap 07/27/2024,2024 Zoster, Recombinant 12/12/2021,09/13/2021 Zoster, live 04/17/2016,04/17/2016 Family History Medical History Relation Name Comments Allergies Mother Other cancer Mother Diabetes Other Cancer Sister 1 Mom and Sister Vicky Osteoarthritis Sister 2 Arti Relation Name Status Comments Mother Other Sister 1 Mom and Sister Vicky Sister 2 Arti Social History Tobacco Use Types Packs/Day Years [...] 10/13/2024 How often do you attend [employer] or buddhism services? Never 10/13/2024 Do you belong to any clubs o r organizations such as hinduism groups, unions, fraternal or athletic groups, or [...] declined 05/22/2025 How often do you attend hinduism or buddhism serv ices? Patient declined 05/22/2025 Do you belong to any clubs o r organizations such as hinduism groups, unions, fraternal or athletic groups, or [...] drinks on one occasion? Patient declined 05/22/2025 [facility] Millen of Occupat ional [facility] - Occupational Stress Questionnaire Answer Date [...] in the past 12 m [facility], were you homeless or living in a correction (including now)? No 05/22/2025 [facility] Utilities Answer Date Recorded In [...] on file Sexual Orientation Not on file Last Filed Vital Signs Vital Sign Reading Time Taken Comments Blood Pressure 118/80 06/25/2025 10:16 AM EDT Pulse 78 06/25/2025 10:16 AM EDT Temperature 36.8 C (98.3 F) 06/25/2025 10:16 AM EDT Respiratory Rate 20 05/23/2025 10:07 AM EDT Oxygen Saturation 98% 06/25/2025 10:16 AM EDT Inhaled Oxygen Concentration - - Weight 86.8 kg (191 lb 5.8 oz) 06/25/2025 10:16 AM EDT Height 157.5 cm (5' 2 ) 06/25/2025 10:16 AM EDT Body Mass Index 35 06/25/2025 10:16 AM EDT Plan of Treatment Upcoming Encounters Date Type Department Care Team (Late st Contact Info) Description 08/23/2025 1:15 PM EST Office Visit Obstetrics & Gynecology [address] [place] [address] Rafael Ravi MD [address] [place] [address] Health Maintenance Due Date Last Done Comments CT Colonography 02/10/1996 FIT-DNA 02/10/1996 FIT 02/10/1996 FOBT 02/10/1996 Sigmoidoscopy 02/10/1996 [facility]-RSV Vaccine: 60+ Years or (1 - Risk 60-74 years 1-dose series) 2011 [facility]-Bone Density Scan 03/16/2024 03/16/2022, 022 Colonoscopy 04/18/2025 04/18/2020, 07/15/2015 [facility]-Colorectal Cancer Screening 04/18/2025 [id number] Vaccine (8 - Pfizer risk 2023- season) 2025 07/27/2024, 09/22/2023, 03/25/2022, Additional history exists [facility]-Influenza Vaccine (#1) 05/07/202507/07, 07/28/2022, 08/11/2021, Additional history exists [facility]-Diabetes: Hemoglobin A1C 10/18/202508/2025, 07/27/2024, 06/03/2023, Additional history exists [facility]-Medicare Annual Wellness (AWV) 10/18/2025 10/18/2024 [facility]- SDOH Screenings 11/19/2025 [facility]-Adult SDOH Screenings 11/19/2025 05/22/2025 [facility]-/Child/Adol SDOH Screenings 11/19/2025 05/22/2025 [facility]-Breast Cancer Screening 01/03/2026/, 03/16/2022, 04/28/2021 [facility]-Depression Screening 06/19/2026 06/19/2025, 11/05 [facility]-DTaP,Tdap,and Td Vaccines (3 - Td or Tdap) 07/27/2034 07/27/2024, 2024 [facility]-Zoster Vaccines Completed 12/12/2021, 09/13/2021, 04/17/2016, Additional history exists [facility]-Pneumococcal Vaccine: 50+ Years Completed 03/25/2022, 12/15/2018, 12/15/2018 [facility]-Hepatitis C Screening Completed 09/02/2023 [facility]-Hepatitis A Vaccines Aged Out 2024 No longer eligible based on patient's age to complete this topic [facility]-Obesity Intervention Completed 025, 06/19/2025, 05/23/2025, Additional history exists HPV Vaccines Aged Out No longer eligi ble based on patient's age to complete this topic [facility]-HIB Vaccines Aged Out No longer e ligible based on patient's age to complete this topic [facility]-IPV Vaccines Aged Out No longer e ligible based on patient's age to complete this topic [facility]-Rotavirus Vaccines Aged Out No lo nger eligible based on patient's age to complete this topic Medical Devices Implanted Type Area Link Machine Operator Device Identifier Shelf Expiration Date Model / Serial / Lot Mesh Ventralight St Echo 6x8 - [id number] Implanted:Qty: 1 on 12/18/2021 by Steve Garner MD at [facility] N/A: Abdomen [id number] 08/03/2023 [id number] / / [id number] Procedures Procedure Name Priority Date/Time Associated Diagnosis Comments US PELVIS TRANSVAGINAL Routine 12:59 PM EDT Pelvic and perineal pain URINE CULTURE Routine 05/22/2025 10:57 AM EDT Lower abdominal pain Pelvic pain COMPREHENSIVE METABOLIC PANEL, PLASMA Routine 05/22/2025 10:53 AM EDT Lower abdominal pain Pelvic pain CBC W/O DIFFERENTIAL Routine 05/22/2025 10:53 AM EDT Lower abdominal pain Pelvic pain TSH Routine 05/22/2025 10:53 AM EDT 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 POCT URINALYSIS DIPSTICK Routine 05/22/2025 10:47 AM EDT Lower abdominal pain MAMMOGRAPHY BREAST SCREENING TOMOSYNTHESIS BILATERAL 01/03/2025 1:49 PM EDT HEMOGLOBIN A1C Routine 10/18/2024 1:41 PM EST Prediabetes HEPATITIS C ANTIBODY W/REFLEX TO HCV QUANT PCR Routine 09/02/2023 2:34 PM EST Fibromyalgia DEXA BONE DENSITY 03/16/2022 12: 56 PM EDT COLONOSCOPY EXTERNAL RESULT 04/18/2020 from Last 3 Months or Most Recently Relevant to Health Maintenance Results * US Pelvis Transvaginal (06/19/2025 12:59 PM EDT) Anatomical Region Laterality Modality Pelvis Ultrasound 06/19/2025 1:36 PM EDT Impressions 06/19/2025 1:46 PM EDT The OB Ultrasound you requested has been resulted. Please navigate to the Imaging tab in afterBOT for review. This message has been generated by the interface. Narrative Procedure Note Rafael Ravi MD - 06/19/2025 IMPRESSION: The OB Ultrasound you requested has been resulted. Please navigate to theImaging tab in afterBOT for review. This message has been generated by theMobileSpanface. us Rafael Ravi MD IMG US PROCEDURES Final Result * Urine Culture (05/22/2025 10:57 AM EDT) Culture <10,000 CFU/mL Mixed urogenital, fecal, or skin gretchen present. 05/23/2025 11:40 AM EDT [facility] Urine Urine specimen obtained by clean catch procedure / Unknown Non-blood Collection / Unknown 05/22/2025 10:57 AM EDT 05/22/2025 10:57 AM EDT us Guerda Machuca APRN LAB MICROBIOLOGY - GENERAL NAOMI LUTHER Final Result [facility] [address] [place] [address] * CBC W/O Differential (05/22/2025 10:53 AM EDT) WBC Count 6.94 3.70 - 10.30 10*3/uL LAB HEMATOLOGY METHOD 05/22/2025 2:39 PM EDT [facility] RBC Count 4.97 3.90 - 5.20 10*6/uL LAB HEMATOLOGY METHOD 05/22/2025 2:39 PM EDT [facility] HGB 14.5 11.2 - 15.7 g/dL LAB HEMATOLOGY METHOD 05/22/2025 2:39 PM EDT [facility] HCT 43.5 34.0 - 45.0 % LAB HEMATOLOGY METHOD 05/22/2025 2:39 PM EDT [facility] Platelet Count 249 155 - 369 10*3/uL LAB HEMATOLOGY METHOD 05/22/2025 2:39 PM EDT [facility] MCV 88 79 - 98 fL LAB HEMATOLOGY METHOD 05/22/2025 2:39 PM EDT [facility] MCH 29.2 26.0 - 32.0 pg LAB HEMATOLOGY METHOD 05/22/2025 2:39 PM EDT [facility] MCHC 33.3 30.7 - 35.5 g/dL LAB HEMATOLOGY METHOD 05/22/2025 2:39 PM EDT [facility] RDW 13.5 11.5 - 14.5 % LAB HEMATOLOGY METHOD 05/22/2025 2:39 PM EDT [facility] MPV 11.3 8.8 - 12.5 fL LAB HEMATOLOGY METHOD 05/22/2025 2:39 PM EDT [facility] nRBC 0.0 <=0.0 per 100 WBCs LAB HEMATOLOGY METHOD 05/22/2025 2:39 PM EDT [facility] Blood Venous blood specimen / Unknown Venipuncture / Unknown 05/22/2025 10:53 AM EDT 05/22/2025 10:53 AM EDT us Guerda Machuca APRN LAB BLOOD ORDERABLES Final Resu lt Performing Organization Address City/[facility]/ZIP Co de Phone Number [facility] [address] [place] [address] * Thyroid Stimulating Hormone, Plasma (05/22/2025 10:53 AM EDT) Thyroid Stimulating Hormone, Plasma 3.66 0.40 - 4.20 uIU/mL 05/22/2025 3:04 PM EDT [facility] Blood Venous blood specimen / Unknown Venipuncture / Unknown 05/22/2025 10:53 AM EDT 05/22/2025 10:53 AM EDT us Guerda Machuca APRN LAB BLOOD ORDERABLES Final Resu lt Performing Organization Address City/[facility]/ZIP Co de Phone Number [facility] [address] [place] [address] * Comprehensive Metabolic Panel, Plasma (05/22/2025 10:53 AM EDT) Glucose, Plasma 90 74 - 99 mg/dL 05/22/2025 3:04 PM EDT [facility] BUN, Plasma 10 8 - 23 mg/dL 05/22/2025 3:04 PM EDT [facility] Creatinine, Plasma 0.65 0.60 - 1.10 mg/dL 05/22/2025 3:04 PM EDT [facility] BUN/Creatinine Ratio 15 05/22/2025 3:04 PM EDT [facility] Sodium, Plasma 141 136 - 145 mmol/L 05/22/2025 3:04 PM EDT [facility] Potassium, Plasma 4.2 3.6 - 4.9 mmol/L 05/22/2025 3:04 PM EDT [facility] Chloride, Plasma 107 97 - 107 mmol/L 05/22/2025 3:04 PM EDT [facility] CO2, Plasma 22 22 - 29 mmol/L 05/22/2025 3:04 PM EDT [facility] Anion Gap 12 6 - 16 mmol/L 05/22/2025 3:04 PM EDT [facility] Total Calcium, Plasma 9.7 8.9 - 10.2 mg/dL 05/22/2025 3:04 PM EDT [facility] Total Protein 7.7 6.3 - 7.9 g/dL 05/22/2025 3:04 PM EDT [facility] Albumin, Plasma 4.3 3.5 - 5.2 g/dL 05/22/2025 3:04 PM EDT [facility] AST, Plasma 34 10 - 35 U/L 05/22/2025 3:04 PM EDT [facility] ALT, Plasma 20 10 - 35 U/L 05/22/2025 3:04 PM EDT [facility] Alkaline Phosphatase, Plasma 73 46 - 142 U/L 05/22/2025 3:04 PM EDT [facility] Total Bilirubin, Plasma 0.4 0.2 - 1.1 mg/dL 05/22/2025 3:04 PM EDT [facility] eGFRcr 92.5 mL/min/1.7 3m*2 05/22/2025 3:04 PM EDT [facility] Comment:Reported eGFRcr in m L/min/1.73m2 is based the CKD-EPI 2020 equation that does not use a race coefficient. Blood Venous blood specimen / Unknown Venipuncture / Unknown 05/22/2025 10:53 AM EDT 05/22/2025 10:53 AM EDT Guerda Machuca APRN LAB BLOOD ORDERABLES Final Resu lt [facility] [address] [place] [address] * (ABNORMAL) POCT Urinalysis dipstick (05/22/2025 10:47 AM EDT) POCT Urine Color Yellow POCT Urine Clarity Clear POCT Glucose Urine Negative Negative mg/dL POCT Bilirubin, Urine Negative Negative POCT Ketones, Urine Negative Negative mg/dL POCT Specific Pavo, Urine 1.020 POCT Blood, Urine Negative Negative POCT pH, Urine 7.0 5.0 to 8.0 POCT Protein, Urine Negative Negative mg/dL POCT Urobilinogen, Urine 0.2 0.2, 1 E.U./dL POCT Nitrite, Urine Negative Negative POCT Leukocyte Esterase, Urine Small(A) Negative Test Strip Lot Number [id number] Test Strip Lot Expiration [id number] Urine Urine specimen obtained by clean catch procedure / Unknown 05/22/2025 10:47 AM EDT Guerda Machuca APRN POINT OF CARE TEST ENTER/EDIT O RDERABLES Final Result * Mammography Breast Screening Tomosynthesis Bilateral (01/03/2025 1:49 PM EDT) Anatomical Region Laterality Modality Breast Bilateral Mammography 01/03/2025 1:49 PM EDT Narrative 01/03/2025 3:10 PM EDT [address] [address] Name: OMER SUAREZ Exam Date: 01/03/2025 : 1950 Age 74 years Gender: F Physician: SANDY COOPER Facility: [facility] Facility HSV: Outpatient Exam: CANDI SCRN [...] the patient has breast surgery or biopsy, FDA/SA Regulatory Guidelines mandate that this facility receive pathologic results for follow-up correlation. Electronically signed by: Sunil Ruiz MD 01/03/2025 03:06 PM EDT Dictated By: Sunil Ruiz Transcribed By: Transcribed On: 01/03/2025 2:31 PM Electronically signed by: Sunil Ruiz 01/03/2025 Thank you for referring OMER SUAREZ to [facility]. Legally authenticated by BABS NAIR 2025-01-03 14:31:21 Procedure Note Provider, [facility] - 01/03/[address] [address] Name: OMER SUAREZ Exam Date: 01/03/2025 : 1950 Age 74 years Gender: F Physician: SANDY COOPER Facility: [facility] Facility HSV: Outpatient Exam: CANDI SCRN [...] the patient has breast surgery or biopsy, FDA/SA Regulatory Guidelines mandate that this facility receive pathologicresults for follow-up correlation. Electronically signed by: Sunil Ruiz MD 01/03/2025 03:06 PM EDTRP Dictated By: Sunil Ruiz Transcribed By: Transcribed On: 01/03/2025 2:31 PM Electronically signed by: Sunil Ruiz 01/03/2025 Thank you for referring OMER SUAREZ to [facility]. Legally authenticated by BABS NAIR 2025-01-03 14:31:21 Sandy Cooper YARN MERCERIZER OPERATOR IMG BI PROCEDURES Final Res ult * (ABNORMAL) Hemoglobin A1c (10/18/2024 1:41 PM EST) Hemoglobin A1c 5.8(H) <5.7 % 10/18/2024 7:00 PM EST [facility] Blood Venous blood specimen / Unknown Venipuncture / Unknown 10/18/2024 1:41 PM EST 10/18/2024 1:41 PM EST Narrative [facility] - 10/18/2024 7:00 PM EST HA1C Interpretive Data: Diagnosis of Diabetes: Diabetic > or = 6.5% Pre-diabetic 5.7 to 6.4% Non-diabetic < or = 5.6% Glycemic Targets for Type I and Type II Diabetics: Non- Adults <7.0% Adults <6.0% Children and Adolescents <7.5% Source: [place] [employer]. Standards of medical care in diabetes,2017. Diabetes Care.2017:40 (suppl 1):S1-S135. HbA1c assay performed by an ion-exchange chromatography method that is certified traceable to the DCCT. Sandy [facility] BLOOD ORDERABLES Final Result Performing Organization Address City/[facility]/ZIP Co de Phone Number [facility] [address] [place] [address] * Hepatitis C Antibody w/Reflex to HCV Quant PCR (09/02/2023 2:34 PM EST) Hepatitis C Antibody Negative Negative 09/02/2023 6:35 PM EST [facility] Blood Venous blood specimen / Unknown Venipuncture / Unknown 09/02/2023 2:34 PM EST 09/02/2023 2:34 PM EST Sandy [facility] BLOOD ORDERABLES Final Result [facility] [address] [place] [address] * Dexa Bone Density (03/16/2022 12:56 PM EDT) Anatomical Region Laterality Modality L-spine Radiographic Maria Fernanda ging 03/16/2022 12:5 6 PM EDT Narrative 03/16/2022 2:40 [place] [address] Name: OMER SUAREZ Exam Date: 03/16/2022 : 1950 Age 72 Gender: F Physician: SANDY COOPER Facility: [facility] Facility HSV: Outpatient Exam: DEXA BONE [...] Lopez 03/16/2022 Thank you for referring OMER SUAREZ to [facility]. Legally authenticated by POPE HOLLY Arnold 2022-03-16 14:28:33 Procedure Note Provider, [facility] - 03/16/2022 [place] [address] Name: OMER SUAREZ Exam Date: 03/16/2022 : 1950 Age 72 Gender: F Physician: SANDY COOPER Facility: [facility] Facility HSV: Outpatient Exam: DEXA BONE [...] Lopez 03/16/2022 Thank you for referring OMER SUAREZ to [facility]. Legally authenticated by POPE HOLLY Arnold 2022-03-16 14:28:33 us Sandy Cooper YARN MERCERIZER OPERATOR IMG DXA PROCEDURES Final Re sult * COLONOSCOPY EXTERNAL RESULT (04/18/2020) Anatomical Region Laterality Modality Endoscopy Narrative 04/18/2020 Ordered by an unspecified provider. us External Provider GI PROCEDURE ORDERABLES Final Result from Last 3 Months or Most Recently Relevant to Health Maintenance Additional Health Concerns Infection Onset Date Last Indicated MRSA 11/19/2021 11/19/2021 Insurance [employer]ARE Care Teams Director Video Relationship Specialty Start Date End Date Sandy Cooper APRN [address] [place] [address] PCP - General 01/17/21
--- OUTSIDE RECORDS SUMMARY | 2025-07-16 11:33 | XMS_ITS | Encounter Summary ---
Author Organization Healthcare Address [address] [place] [address] Care Team Providers Care Cannery Tender Engineer Name Role Phone Sandy Cooper APRN Primary Care Provider [phone] Carmen Mcleod LPN Unavailable Unavailabl e Emili Foster Unavailable Unavailabl e Reason for Visit * Reason Comments Med Refill Encounter Details Date Type Department Care Team (Late st Contact Info) Description 03/25/2025 Refill [facility] [address] [place] [address] Sandy Cooper APRN [address] [place] [address] Social History Tobacco Use Types [...] often do you attend chur ch or advent services? Never 10/13/2024 Do you belong to any clubs o r organizations such as orthodox groups, unions, fraternal or athletic groups, or [...] Recorded Patient Health Questionnaire-2 Score 2 11/23/2024 [facility] - Occupational Stress Questionnaire Answer Date [...] place to sleep or slept in a intermediate (including now)? No 11/04/2023 PHQ-9 Answer Date [...] any time in the past 12 m [facility], were you homeless or living in a intermediate (including now)? No 10/18/2024 Safety and Environment [...] Visit Obstetrics & Gynecology [address] [place] [address] Rafael Ravi MD [address] [place] [address] documented as of this encounter [...] documented as of this encounter Care Teams Cannery Tender Engineer Relationship Specialty Start Date End Date Sandy Cooper APRN [address] [place] [address] PCP - General 01/17/21 Carmen Mcleod LPN VALUE-BASED TRANSFORMATION PROGRAM Licensed Practical Nurse 10/12/24 04/10/25 Emili Foster Clinical Information Systems Operator 05/21/25 06/25/25 documented as of this encounter
--- OUTSIDE RECORDS SUMMARY | 2025-07-16 11:33 | XMS_ITS | Encounter Summary ---
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 Never 10/13/2024 Do you belong to any clubs o r organizations such as advent groups, unions, fraternal or athletic groups, or [...] declined 05/22/2025 How often do you attend advent or congregation serv ices? Patient declined 05/22/2025 Do you belong to any clubs o r organizations such as advent groups, unions, fraternal or athletic groups, or [...] drinks on one occasion? Patient declined 05/22/2025 [facility] - Occupational Stress Questionnaire Answer Date [...] any time in the past 12 m [facility], were you homeless or living in a group home (including now)? 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
--- OUTSIDE RECORDS SUMMARY | 2025-07-16 11:33 | XMS_ITS | Data Portability ---
Author Organization [facility] Address [address] [place] [address] Assessment No assessment recorded. Plan of Treatment Reminders Order Date Submit Date Provider Last Modified By Organization Details Last Modified Time Details Appointments None recorded. Lab None recorded. Referral None recorded. Procedures None recorded. Surgeries None recorded. Imaging US, transvagina l 2019 020 [facility] (Centralized Scheduling), [address] , [place], [address], 0 08:58:43 Medication Orders None recorded. Patient TargetsNo targets recorded. Patient Instructions Encounter Date Encounter Id Patient Instructions Last Modified By Organization Details Last Modified Time 11/21/2019 [id number] atrophic vaginitis: care instructions [email or web address] Not available 11/21/2019 15:05:16 kidney stone: care instructions [email or web address] Not available 11/21/2019 15:05:16 learning about diet for kidney stone prevention cbeiting Not available 11/21/2019 15:05:16 Reason for Referral None Reported. Results Created Date Observation Date Name Description Value Unit Range Abnormal Flag Note LastModifiedBy Organization Detail LastModifiedTime 11/28/19 20 11/22/2019 US, trans vagin al No observ ation record ed. [facility] (Registration ) [address] , [place], [address], 11/28/2019 09:39:54 Result Notes None recorded. Procedures Surgical History Date Name Laterality Status Provider Name and Address Organization Details Recorded Time Partial Hysterectomy completed KUSHAL SMITH MD [address] [place] [address], [phone], [facility] 11/21/2019 14:40:30 procedure on urinary bladder completed KUSHAL SMITH MD [address] [place] [address], [phone], [facility] 11/21/2019 14:41:40 Imaging Results None recorded. Procedure Notes None recorded. Medical Equipment None Reported. Allergies Allergen ID Allergen Name Allergen Category Reaction Reaction Severity Criticality Documentation Date Start Date Code Code System Note Provider Name and Address Organization Details Recorded Time [id number] Substance with sulfonami de structure and antibacte rial mechanism of action (substanc e) medicatio n Not available Not available Not available 07/31/20162010 81146 8003 SNOMED Comme nt: Creat ed By: Joanna Ribeiro eated Date: 08/21 9:24: 10 AM; Not Available [facility] 6 09:40:01 Medications Name Sig Start Date Stop Date Status Note LastModified by Organization Details LastModified Time Synthroid 75 mcg tablet Daily active Frequenc y: daily;Me dication Descript ion: levothyr oxine; Dosage:1 ; Route:or al; refills: 0; Quantity :30 tablet Not Available Not Available Not Available estradiol 0.01% (0.1 mg/gram) vaginal cream Insert by vaginal route. active Not Available Not Available No t Available salsalate 750 mg tablet 11/20 completed Duration : 10 days;Med ication Descript ion: salsalat e; Route:or al; refills: 0; Quantity :180 tablet Not Available Not Available Not Available AcipHex 20 mg tablet,de layed release Daily 11/20 completed Duration : 30 days;Jonatan quency: daily;Me dication Descript ion: rabepraz ole; Dosage:1 ; Route:or al; refills: 0; Quantity :30 tablet, extended release Not Available Not Available Not Available hydroxyzi ne HCl active Medicati on Descript ion: hydroxyz ine; refills: 0 Not Available Not Available Not Available Prilosec active Medicati on Descript ion: omeprazo le; Route:or al; refills: 0 Not Available Not Available Not Available Celebrex active Not Available Not Avai lable Not Available Dexilant active Not Available Not Avai lable Not Available Osphena active Not Available Not Avail able Not Available Intrarosa active Not Available Not Rossy ilable Not Available Vitals Date Recorded Body temperature Body weight Body mass index (BMI) Body height Systolic And Diastolic Provider Name and Address Organization Details Last Updated DateTime 11/21/2019 98.5 [degF] 14089.09 g 36.3 kg/m2 157.48 cm 130/60 mm[Hg] Jaime Brambila [facility] 0 14:17:44 Social History Question Answer Notes LastModified by Organizat Figment Details LastModified Time Tobacco Smoking Status [facility] [place] 11/21/2019 14:21:04 What Is Your Level Of Caffeine Consumption? Moderate Information not available 11/21/2019 Marital Status Informatio n not available 11/21/2019 Sex: Unknown Functional Status Question Answer Note LastModified by Organizat Fig[employer] Details LastModified Time What is your level of alcohol consumption? Occasional Information not available 11/21/2019 Mental Status None recorded. Family History Relationship Description Onset Age of this Age Resolved Age Notes LastModified by Organization Details LastModified Time Mother Family history of malignant neoplasm small cell lung cancer Not available 11/21/2019 14:20:12 Mother Hypercholest erolemia Not available 2019 14:20:57 Sister Family history of malignant neoplasm small cell lung cancer Not available 11/21/2019 14:20:28 Medical History Condition Response Diabetes N Bleeding Disorder N Anemia N Sleep Apnea Y Liver Disease N Cancer N Deep Vein Thrombosis N Thyroid Problems Y Hypertension N Kidney Disease Y Gynecological History Statement/Question Response Abnormal Pap N Sexually Active? N Obstetrics History GPAL:G 0 P 0 0 0 0 Past Encounters Encounter ID Performer Location Encounter Start Date Encounter Closed Date Diagnosis/Indication Diagnosis SNOMED-CT Code Diagnosis ICD10 Code Diagnosis IMO Codes Diagnosis Note [id number] KUSHAL SMITH MD PROPERTY FIELD ADJUSTER [facility] [address] [place] [address] 11/21/2019 14:12:39 11/21/2019 15:08:54 Pain in pelvis 42532999 R10.2 not sure what is causing her pain but most components sound urological . Likely she will need CT / hematuria protocol. She is seeing new urology tomorrow. Dr Harris in [place] . Will let him work up the kidney stone issue. We will order TVUS to check the remaining ovaries. If those are normal I am not sure the pain she is exeriencin g is gynecologi c. Kidney stone 13558167 N2 0.0 some of her symptoms sound like kidney stone. Like when she get the severe pain , then cannot stand the pain, then vomited and then after the valsalve the pain went away. Pt is thinking it may be stone formation issues as well. Atrophic vaginitis 33698 000 N95.2 she has not used intrarosa ( every other day) . topical vaginal estrogen around the vulva/ labial opening and the opspena for 6 months. The moisture looks appropriat e. I do not think the degree of pain is correlate to the dx of atrophic vaginitis. Plus this looks mainly resolved for now. I recommend to d/c the ospena. But cont the intrarosa and topical vaginal estrogen. She may return her prn. Health Concerns Section Related Observation LastModified by Organization Detai ls LastModified Time None Recorded Concern Status LastModified by Organization Details LastModified Time None Recorded Advance Directives Directive None Recorded Payers Insurance Date Sequence Insurance Name Policy Number Policy Cunningham Covered Member ID Cunningham Member ID Guarantor Name 11/20/2019 1 [employer] [id number] [facility] [id number] [facility] 11/21/2019 1 [employer] (MEDICARE REPLACEMENT/ ADVANTAGE - PPO) [id number] [facility] [id number] [employer] [facility] Notes Date Note Type Note Provider Name and Address Organization Details Recorded Time 11/21/2019 text/html pt has vaginal pain and irritation and states that she had blood on the vaginal applicator when she took it out. she says the pain is on the outside and the inside. 69 yo with severe on set of pelvic pain pain. This started about 6 months ago when pain and pressure in the vagina and left pelvis area. She says the pain is constant and mainly will note a burning type pain in the lower abdomen to suprapubic. The pyridium she used worked to make the pain go away for a long time but now even the pyridium does not work. Pt had a workup by Dr Bryant who diagnosed atrophic vaginitis, started her on ospena , estradiol cream and the intrarosa. She has been using the meds for about 6 months an the symptoms have only been getting worse. She has not seen visible passing of kidney stones but last night she was having severe pain. left side mainly, then vomited because the pain was so bad and then all of a sudden the pain was gone. She has had urine cultures through her PCP She does not notice any vaginal bleeding. Dr Bryant did several tests. office cystoscopy, urodynamics, and vaginal colposcopy. urine dips positive for infections. see note under historic medical records. KUSHAL SMITH MD [facility] [place], [address], [facility] 11/21/2019 15:05:20 OBGyn Episode No OBEpisode recorded.
--- OUTSIDE RECORDS SUMMARY | 2025-07-16 11:33 | XMS_ITS | Clinical Summary ---
Author Organization [facility] Address [address] [place] [address] Phone Care Team Providers Care Director Statistical Programming Name Role Phone Unavailable Primary Care Provider Unavailabl e Medications No known medications Active Problems No known active problems Social History Tobacco Use Types Packs/Day Years Used Date Smoking Tobacco: Never Assessed Comments Unknown Sex and Gender Information Value Date Recorded Sex Assigned at Not on file Legal Sex Female 2:42 PM EST Gender Identity Not on file Sexual Orientation Not on file Plan of Treatment Health Maintenance Due Date Last Done Comments Wellness Exam Medicare 1953 Hepatitis C Screening 1969 Cologuard 02/10/1996 Colon Cancer Screening 02/10/1996 Colonoscopy 02/10/1996 FIT 02/10/1996 Sigmoidoscopy 02/10/1996 Virtual Colonography 02/10/1996 COVID-19 Vaccine ( season) 2025 07/27/2024, 09/22/2023, 03/25/2022, Additional history exists Influenza Vaccine (#1) 2025 , 09/22/2023, 07/28/2022, Additional history exists Breast Cancer Screening 01/03/2027 01/04/20, 01/03/2025, 11/01/2023, Additional history exists DTaP/TDaP/Td (3 - Td or Tdap) 07/27/2034 07/27/2024, 2024 Hepatitis B Vaccine Completed 07/30/2003, 02/26/2003, 01/11/2003 Zoster Completed 12/12/2021, 04/2022, 04/17/2016 Bone Density Screening Completed 03/16/2022, 2021 Pneumococcal Vaccine 50+ Completed 03/25/2022, 12/05 Meningococcal B Vaccine Aged Out No l onger eligible based on patient's age to complete this topic Insurance [id number] [place] [id number] [employer]ET[employer] MEDICARE PPO REPLACE MR AETNA MEDICARE PPO REPLACE MR
--- OUTSIDE RECORDS SUMMARY | 2025-07-16 11:33 | XMS_ITS | Encounter Summary ---
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 Never 10/13/2024 Do you belong to [...] How often do you attend protestant or mormon serv ices? Patient declined 05/22/2025 Do you [...] drinks on one occasion? Patient declined 05/22/2025 [facility] - Occupational Stress Questionnaire Answer Date [...] were you homeless or living in a long term (including now)? No 05/22/2025 [facility] Utilities Answer Date Recorded In the past [...] EST Office Visit Obstetrics & Gynecology [address] [place] [address] Rafael Ravi MD [address] [place] [address] documented as of this encounter [...] documented as of this encounter Care Teams Beef Cattle Specialist Relationship Specialty Start Date End Date Sandy Cooper APRN [address] [place] [address] PCP - General 01/17/21 documented as of this encounter
--- OUTSIDE RECORDS SUMMARY | 2025-07-16 11:33 | XMS_ITS | Encounter Summary ---
Author Organization Healthcare Address [address] [place] [address] Care Team Providers Care Time Checker Name Role Phone Sandy Cooper APRN Primary Care Provider [phone] Emili Foster Unavailabl e Encounter Details Date Type Department Care Team (Latest Contact Info) Description 06/25/2025 Travel Social History Tobacco Use Types Packs/Day [...] week 10/13/2024 How often do you attend [facility] or cheondoism services? Never 10/13/2024 Do you belong to any clubs o r organizations such as synagogue groups, unions, fraternal or athletic groups, or [...] declined 05/22/2025 How often do you attend synagogue or cheondoism serv ices? Patient declined 05/22/2025 Do you belong to any clubs o r organizations such as synagogue groups, unions, fraternal or athletic groups, or [...] drinks on one occasion? Patient declined 05/22/2025 [facility] - Occupational [...] any time in the past 12 m [facility], were you homeless or living in a fci (including now)? No 05/22/2025 [facility] Utilities Answer Date Recorded In the past 12 months has th e [employer], gas, oil, or water [employer] threatened to shut off services in your [...] as of this encounter Functional Status * Calculated C-SSRS [...] EST Office Visit Obstetrics & Gynecology [address] [place] [address] Rafael Ravi MD [address] [place] [address] documented as of this encounter [...] documented as of this encounter Care Teams Time Checker Relationship Specialty Start Date End Date Sandy Cooper APRN [address] [place] [address] PCP - General 01/17/21 Emili Foster Clinical General Farm Manager 05/21/25 06/25/25 documented as of this encounter
--- OUTSIDE RECORDS SUMMARY | 2025-07-16 11:33 | XMS_ITS | Encounter Summary ---
Author Organization Healthcare Address [address] [place] [address] Care Team Providers Care Cut Off Saw Operator Pipe Blanks Name Role Phone Enrique Neely APRN Primary Care Provider [phone] Laura Tinajero ORACLE IDENTITY MANAGEMENT CONSULTANT Unavailable Unavailable Carmen Mcleod ORACLE IDENTITY MANAGEMENT CONSULTANT Unavailable Unavailabl e Emili Foster Unavailable Unavailabl e Encounter Details Date Type Department Care Team (Late Contact Info) Description 04/18/2021 Outside Procedure External Location [address] [place] [address] Enrique Neely, [facility] [address] [place] [address] Social History Tobacco Use Types [...] have Coronavirus / COVID-19? No / Unsure 04/16/2021 12:28 PM EDT documented as of this encounter Plan of Treatment Upcoming Encounters Date Type Department Care Team (Late Contact Info) Description 08/23/2025 1:15 PM EST Office Visit Obstetrics & Gynecology [facility] [place] [address] Rafael Ravi MD [address] [place] [address] documented as of this encounter Procedures Procedure Name Priority Date/Time Associated Diagnosis Comments CT ABDOMEN PELVIS WO IV CONTRAST 04/18/2021 2:26 PM EDT documented in this encounter Results * CT Abdomen Pelvis wo IV Contrast (04/18/2021 2:26 PM EDT) Anatomical Region Laterality Modality Abdomen, Pelvis Computed Tomogra phy 04/18/2021 2:26 PM EDT Narrative 04/18/2021 4:51 PM EDT [facility] [address] [place] [address] Name: OMER SUAREZ Exam Date: 04/18/2021 : 1950 Age 71 Gender: F Physician: ENRIQUE NEELY Facility: [facility] Facility HSV: Outpatient Exam: CT ABD W/O CT ABDOMEN WITHOUT CONTRAST HISTORY: Ventral hernia. COMPARISON: 01/17/2020. TECHNIQUE: Oral without IV contrast. FINDINGS: Abdomen: Lung bases are clear. Patient is status post cholecystectomy. No bowel obstruction is seen. Midline abdominal wall hernia is noted containing omental fat. This has enlarged from prior exam. The hernia is well seen on image 35 with abdominal wall defect measuring 17 mm. The hernia sac containing omental fat measures 5.6 x 3.3 cm. There is a separate small umbilical hernia containing fat. IMPRESSION: Upper abdominal midline and umbilical hernias containing fat as above. This study was performed using automated techniques to achieve radiation exposure as low as reasonably achievable. Dictated By: ASHA PORTILLO Transcribed By: gina ortiz Transcribed On: 04/18/2021 4:23 PM Electronically signed by: ASHA PORTILLO 04/18/2021 Thank you for referring OMER SUAREZ to [facility]. Legally authenticated by BANDAR HERNANDEZ 2021-04-18 16:40:12 Procedure Note Provider, [facility] 04/18/2021 [facility] [address] [place] [address] Name: OMER SUAREZ Exam Date: 04/18/2021 : 1950 Age 71 Gender: F Physician: ENRIQUE NEELY Facility: [facility] Facility HSV: Outpatient Exam: CT ABD W/O CT ABDOMEN WITHOUT CONTRAST HISTORY: Ventral hernia. COMPARISON: 01/17/2020. TECHNIQUE: Oral without IV contrast. FINDINGS: Abdomen: Lung bases are clear. Patient is status post cholecystectomy. No bowel obstruction is seen. Midline abdominal wall hernia is noted containing omental fat. This has enlarged from prior exam. The herniais well seen on image 35 with abdominal wall defect measuring 17 mm. Thehernia sac containing omental fat measures 5.6 x 3.3 cm. There is a separatesmall umbilical hernia containing fat. IMPRESSION: Upper abdominal midline and umbilical hernias containing fatas above. This study was performed using automated techniques to achieve radiation exposure as low as reasonably achievable. Dictated By: ASHA PORTILLO Transcribed By: gina ortiz Transcribed On: 04/18/2021 4:23 PM Electronically signed by: ASHA PORTILLO 04/18/2021 Thank you for referring OMER SUAREZ to [facility]. Legally authenticated by BANDAR HERNANDEZ 2021-04-18 16:40:12 Enrique Neely [facility] IMG CT PROCEDURES Final Res ult documented in this [...] documented as of this encounter Care Teams Cut Off Saw Operator Pipe Blanks Relationship Specialty Start Date End Date Enrique Neely APRN [address] [place] [address] PCP - General 01/17/21 Laura Tinajero LPN VALUE-BASED [place] [address] TCM Nurse 10/20/22 10/21/22 Carmen Mcleod LPN VALUE-BASED TRANSFORMATION PROGRAM Licensed Practical Nurse 10/12/24 04/10/25 Emili Foster Clinical Programmer Or Analyst 05/21/25 06/25/25 documented as of this encounter
[2025-07-16 12:28] LABS: Hematocrit 42.1 % (37.0-47.0); Hemoglobin 14.0 g/dL (12.2-16.2); Immature Granulocytes % 1.8 %; Mean Corpuscular HGB Conc 33.3 g/dL (31.8-35.4); Mean Corpuscular Hemoglobin 29.1 pg (27.0-31.2); Mean Corpuscular Volume 87.5 fl (81-99); Nucleated Red Blood Cells % 0 %; Platelet Count 168 K/mm3 (142-424); Red Blood Count 4.81 M/mm3 (4.20-5.40); Red Cell Distribution Width-SD 42.5 fL; White Blood Count 6.1 K/mm3 (4.8-10.8)
[2025-07-16 12:38] LABS: Alanine Aminotransferase 29 U/L (12-78); Albumin Level 4.6 g/dl (3.5-5.0); Albumin/Globulin Ratio 1.5 (1.1-1.8); Alkaline Phosphatase 69 U/L (38-126); Anion Gap 13.0 mEq/L (5-15); Aspartate Amino Transferase 41 U/L (14-36); Bilirubin,Total 0.5 mg/dl (0.2-1.3); Blood Urea Nitrogen 13 mg/dl (7-17); Calcium 9.7 mg/dl (8.4-10.2); Carbon Dioxide 25 mmol/L (22.0-30.0); Chloride 104 mmol/L (98-107); Creatinine,Serum 0.80 mg/dl (0.52-1.04); Estimated Glomerular Filt Rate 70 ml/min (>60); GFR (African American) 85 ML/MIN (>60); Globulin 3.1 g/dL (1.3-3.2); Glucose 107 mg/dl (74-100); Potassium 4.0 mmoL/L (3.5-5.1); Sodium 138 mmol/L (136-145); Total Protein,Serum 7.7 g/dl (6.3-8.2)
== END 2025-07-16 23:59 | disposition home or self-care (01) ==
PROVIDERS: PCP Nurse Practitioner Family
DX: L40.0 Psoriasis vulgaris (principal)
CPT/HCPCS: 36415; 80053; 80074; 85025; 86480

== ENCOUNTER 2025-07-18 08:23 | Day surgery (SDC) | payer MEDICARE, SELFPAY ==
[2025-06-13 08:39] VITALS: BMI 34.4
--- NOTE | 2025-06-13 16:15 | P.HP_ITS ---
History of Present Illness *Admission Date: 06/20/25 *History of present illness: Mrs. Suarez is a 75-year-old female who is here for screening/surveillance colonoscopy. She did have a colonoscopy in April 2020 (Romi Todd MD?[facility]) and had a single transverse colon polyp (tubular adenoma) removed. She also had diverticulosis identified. The examination is deemed medically necessary for screening/surveillance colonoscopy. The patient has been seen, interviewed and examined prior to the procedure by both myself and the anesthesia provider. [facility] Disclaimer: The information contained in this section may have been updated after the patient was seen, as this information can be updated by other users. Medical History (Updated 06/13/25 @ 16:17 by Erick Lnad II, MD) Sleep apnea Osteoarthritis Glaucoma FH: cholecystectomy Abdominal hernia GERD (gastroesophageal reflux disease) Hiatal hernia Surgical History S/P partial hysterectomy History of repair of rotator cuff Family History Mother Cancer Sister Cancer Social History (Updated 06/13/25 @ 08:32 by Shameka Brooks RN) Smoking Status: Former smoker smoking status stop date: 40 years ago alcohol intake: current alcohol intake frequency: a few times a month current occupational status: retired Travel in the last 8 weeks?: None pets and animals: No caffeine: Yes physical activity: walking frequency: 1-2 times per week Contact w/someone who lives/traveled outside US past 30 days?: No Exposure to someone with infectious disease in past 14 days?: No Do you have a fever (greater than 100.4 F or 38 C)?: No Have you tested positive for COVID-19?: No Exposed to someone with COVID-19 in past 14 days?: No Do you have a sore throat?: No Do you have a cough?: No Do you have any weakness?: No Are you experiencing any nausea/vomitting?: No Do you have any diarrhea?: No Are you experiencing any unusual bleeding?: No Do you have any muscle aches/pain?: No Do you have any abdominal pain?: No Are you experiencing loss of taste or smell?: No Other Medical History Have you received the Pneumonia Vaccine: Yes Review of Systems Review of Systems Review of systems (narrative): Negative *Cardiovascular Comments: Negative *Gastrointestinal Comments: Negative *Genitourinary Comments: Negative *Musculoskeletal Comments: Negative *Neurologic Comments: Negative Meds Home Medications and Allergies Home Medications ?Medication ?Instructions ?Recorded ?Confirmed ?Type celecoxib 200 mg capsule (Celebrex) 200 mg PO DAILY Pa in 12/09/18 06/13/25 History diphenhydramine HCl 25 mg tablet 25 mg PO HS PRN sleep 03/14/19 06/13/25 History brimonidine 0.2 % eye drops 1 drp Eye-Both DAILY 03/3006/13/25 History clindamycin phosphate 1 % topical 1 applic topical ELIECER LY #60 grams 03/30/25 06/13/25 Rx gel clobetasol 0.05 % topical cream 1 applic topical DAILY 03/30/25 06/13/25 History fenofibrate nanocrystallized 145 145 mg PO DAILY 03/3006/13/25 History mg tablet hydrocortisone 2.5 % topical 1 applic topical DAILY #2 8.35 grams 03/30/25 06/13/25 Rx ointment ipratropium 0.5 mg-albuterol 3 mg 3 ml inhalation N EEDED PRN 03/30/25 06/13/25 History (2.5 mg base)/3 mL nebulization Congestion soln levothyroxine 112 mcg tablet 112 mcg PO DAILY 03/30/25 06/13/25 History pantoprazole 40 mg tablet,delayed 40 mg PO DAILY 03/3006/13/25 History release (Protonix) timolol maleate 0.25 % eye drops 1 drp Eye-Both DAILY 03/30/25 06/13/25 History azelastine 137 mcg (0.1 %) nasal 2 spray intranasal BI D #30 mL 04/25/25 06/13/25 Rx spray furosemide 20 mg tablet (Lasix) 20 mg PO DAILY #30 tab s 04/25/25 06/13/25 Rx sodium,potassium,mag sulfates 17.5 See Rx Instructions PO .COMPLEX 06/07/25 06/13/25 Rx gram-3.13 gram-1.6 gram oral soln #354 mL (Suprep Bowel Prep Kit) New Prescriptions to Start Prescriptions: Allergies Allergy/AdvReac Type Severity Reaction Status Date / Time amoxicillin (AMOXICILLIN) Allergy Mild Nausea Verified 06/13/25 08:33 codeine Allergy Mild Other Verified 06/13/25 08:33 Sulfa (Sulfonamide Allergy Other Verified 06/13/25 08:33 Antibiotics) Exam Data for Last 24 hours I & O for Last 24 hours: Intake & Output 06/10/25 06/11/25 06/12/25 06/13/25 23:59 23:59 23:59 23:59 Weight 188 lb *Routine HEENT Exam Head: Present normocephalic Eye: Present EOMI and PERRL ENT: Present mucous membranes moist *Routine Neck Exam Neck: Present supple *Routine Respiratory Exam Respiratory: Present CTA bilaterally *Routine Cardiovascular Exam Cardiovascular: Present RRR *Routine Abdominal Exam Abdominal: Present soft and normoactive bowel sounds; Absent tenderness *Routine Rectal Exam Rectal:: deferred *Routine Genitalia Exam Genitalia:: deferred *Routine Extremities Exam Extremities: Absent cyanosis, clubbing or edema *Routine Skin Exam Skin: Present warm; Absent rash *Routine Neurological Exam Neurological: Present alert and oriented X3 Assessment and Plan *Assessment and plan (1) Personal history of adenomatous and serrated colon polyps: Status: Acute Category: Medical Code(s): Z86.0101 - Personal history of adenomatous and serrated colon polyps (2) Screening for colorectal cancer: Status: Acute Category: Medical Code(s): Z12.11 - Encounter for screening for malignant neoplasm of colon; Z12.12 - Encounter for screening for malignant neoplasm of rectum Plan A/P: 1. Personal history of adenomatous colon polyps is the preprocedural diagnosis. The patient will be anesthetized/sedated using MAC sedation. The patient has been seen and examined. Cardiac and lung assessment prior to the examination is stable. Proceed with planned screening colonoscopy.
--- NOTE | 2025-07-15 11:20 | P.HP_ITS ---
History of Present Illness *Admission Date: 07/18/25 *History of present illness: Mrs. Suarez is a 75-year-old female who is here for screening/surveillance colonoscopy. The patient did have a colonoscopy in April 2020 (Dania Todd MD at [facility] in [place]) and a 5 mm polyp (tubular adenoma) was removed. The examination is deemed medically necessary for screening/surveillance colonoscopy. The patient has been seen, interviewed and examined prior to the procedure by both myself and the anesthesia provider. [facility] Disclaimer: The information contained in this section may have been updated after the patient was seen, as this information can be updated by other users. Medical History Sleep apnea Osteoarthritis Glaucoma FH: cholecystectomy Abdominal hernia GERD (gastroesophageal reflux disease) Hiatal hernia Surgical History S/P partial hysterectomy History of repair of rotator cuff Family History Mother Cancer Sister Cancer Social History Smoking Status: Former smoker smoking status stop date: 40 years ago alcohol intake: current alcohol intake frequency: a few times a month current occupational status: retired Travel in the last 8 weeks?: None pets and animals: No caffeine: Yes physical activity: walking frequency: 1-2 times per week Have you lived/traveled outside US in past 30 days?: No Contact w/someone who lives/traveled outside US past 30 days?: No Exposure to someone with infectious disease in past 14 days?: No Do you have a fever (greater than 100.4 F or 38 C)?: No Have you tested positive for COVID-19?: No Exposed to someone with COVID-19 in past 14 days?: No Do you have a sore throat?: No Do you have a cough?: No Do you have any weakness?: No Are you experiencing any nausea/vomitting?: No Do you have any diarrhea?: No Are you experiencing any unusual bleeding?: No Do you have any muscle aches/pain?: No Do you have any abdominal pain?: No Are you experiencing loss of taste or smell?: No Other Medical History Have you received the Pneumonia Vaccine: Yes Review of Systems Review of Systems Review of systems (narrative): Negative *Cardiovascular Comments: Negative *Gastrointestinal Comments: Negative *Genitourinary Comments: Negative *Musculoskeletal Comments: Negative *Neurologic Comments: Negative Meds Home Medications and Allergies Home Medications ?Medication ?Instructions ?Recorded ?Confirmed ?Type celecoxib 200 mg capsule (Celebrex) 200 mg PO DAILY Pa in 12/09/18 07/18/25 History diphenhydramine HCl 25 mg tablet 25 mg PO HS PRN sleep 03/14/19 07/18/25 History brimonidine 0.2 % eye drops 1 drp Eye-Both DAILY 03/3007/18/25 History clindamycin phosphate 1 % topical 1 applic topical ELIECER LY #60 grams 03/30/25 07/18/25 Rx gel clobetasol 0.05 % topical cream 1 applic topical DAILY 03/30/25 07/18/25 History fenofibrate nanocrystallized 145 145 mg PO DAILY 03/3007/18/25 History mg tablet hydrocortisone 2.5 % topical 1 applic topical DAILY #2 8.35 grams 03/30/25 07/18/25 Rx ointment ipratropium 0.5 mg-albuterol 3 mg 3 ml inhalation N EEDED PRN 03/30/25 07/18/25 History (2.5 mg base)/3 mL nebulization Congestion soln levothyroxine 112 mcg tablet 112 mcg PO DAILY 03/30/25 07/18/25 History pantoprazole 40 mg tablet,delayed 40 mg PO DAILY 03/3007/18/25 History release (Protonix) timolol maleate 0.25 % eye drops 1 drp Eye-Both DAILY 03/30/25 07/18/25 History azelastine 137 mcg (0.1 %) nasal 2 spray intranasal BI D #30 mL 04/25/25 07/18/25 Rx spray furosemide 20 mg tablet (Lasix) 20 mg PO DAILY #30 tab s 04/25/25 07/18/25 Rx sodium,potassium,mag sulfates 17.5 See Rx Instructions PO .COMPLEX 06/07/25 07/18/25 Rx gram-3.13 gram-1.6 gram oral soln #354 mL (Suprep Bowel Prep Kit) New Prescriptions to Start Prescriptions: Allergies Allergy/AdvReac Type Severity Reaction Status Date / Time amoxicillin (AMOXICILLIN) Allergy Mild Nausea Verified 07/18/25 09:03 codeine Allergy Mild Other Verified 07/18/25 09:03 Sulfa (Sulfonamide Allergy Other Verified 07/18/25 09:03 Antibiotics) Exam *Routine HEENT Exam Head: Present normocephalic Eye: Present EOMI and PERRL ENT: Present mucous membranes moist *Routine Neck Exam Neck: Present supple *Routine Respiratory Exam Respiratory: Present CTA bilaterally *Routine Cardiovascular Exam Cardiovascular: Present RRR *Routine Abdominal Exam Abdominal: Present soft and normoactive bowel sounds; Absent tenderness *Routine Rectal Exam Rectal:: deferred *Routine Genitalia Exam Genitalia:: deferred *Routine Extremities Exam Extremities: Absent cyanosis, clubbing or edema *Routine Skin Exam Skin: Present warm; Absent rash *Routine Neurological Exam Neurological: Present alert and oriented X3 Assessment and Plan *Assessment and plan (1) Personal history of adenomatous and serrated colon polyps: Status: Acute Category: Medical Code(s): Z86.0101 - Personal history of adenomatous and serrated colon polyps (2) Screening for colorectal cancer: Status: Acute Category: Medical Code(s): Z12.11 - Encounter for screening for malignant neoplasm of colon; Z12.12 - Encounter for screening for malignant neoplasm of rectum Plan A/P: 1. Personal history of adenomatous colon polyps is the preprocedural diagnosis. The patient will be anesthetized/sedated using MAC sedation. The patient has been seen and examined. Cardiac and lung assessment prior to the examination is stable. Proceed with planned screening colonoscopy.
[2025-07-17 13:19] VITALS: BMI 34.4
--- NOTE | 2025-07-18 07:00 | HMH.PROCNOTE ---
[place] Procedure Note Date: 07/18/25 Time: 10:30 Procedure Note:: Colonoscopy Procedure Report: Colonoscopy with cold snare polypectomy and hemorrhoid band ligation Endoscopist: Erick Land II, MD Referring physician: DIANA Ferguson, [address] [place] [address], [place] [address] Date of Procedure: July 18, 2025 Equipment: Olympus [id number] adult colonoscope Sedation: MAC sedation Indication: Mrs. Suarez is a 75-year-old female who is here for screening/surveillance colonoscopy. The patient did have a colonoscopy in April 2020 (Dania Todd MD at [facility]) and a 5 mm polyp (tubular adenoma) was removed. The patient did have a pelvic injury/tilted pelvic bone that was corrected. This resulted in straining and development of hemorrhoids (primarily external). She reports no internal hemorrhoidal prolapse or bleeding but did see blood with the bowel preparation. She reports no abdominal pain, weight loss, change in her bowel habits or family history of colon cancer. She does report some excessive wiping. The examination is deemed medically necessary for screening/surveillance colonoscopy. Procedure: Prior to the procedure, a history and physical exam was performed, and patient's medications and allergies were reviewed. The risks, benefits and alternatives of the sedation and procedure were discussed with the patient. All questions were answered and informed consent was obtained. The patient was brought to the procedure room. Patient identification and proposed procedure were verified by the physician and the nurse. The patient was placed in a left lateral decubitus position and the scope was passed under direct vision. Throughout the procedure, the patient's blood pressure, pulse, and oxygen saturations were monitored continuously. The colonoscopy was accomplished without difficulty. The patient tolerated the procedure well. Findings: On digital rectal examination there was normal rectal tone. There were external hemorrhoidal tags and some internal hemorrhoidal prolapse. The colonoscope was introduced through the anal canal to the rectum and advanced to the cecum. The ileocecal valve and appendiceal orifice were identified. The scope was advanced a short distance into the ileum which appeared grossly normal. The scope was then withdrawn into the colon. There were 2 diminutive polyps (cecum x 1 (5 mm) and ascending x 1 (2 to 3 mm)). Both of these were removed via cold snare polypectomy. The remaining cecum, ascending and transverse colon and mucosa were grossly normal. There were scattered extensive diverticuli throughout the descending and sigmoid colon (LEFT colon). The rectum itself was normal. Upon retroflexion within the rectum there were grade 2-3 internal hemorrhoids. 3 columns of hemorrhoids were banded using 3 bands with excellent ligation effect. The preparation was excellent throughout with [place] Preparation Score of 9. The cecal time was 15 minutes. Impression: 1. Diminutive colonic polyps x 2 (3 and 5 mm) 2. Extensive left-sided diverticulosis 3. Grade 2-3 internal hemorrhoids status post band ligation x 3 Plan: I will follow-up the polyp histology and I will discuss whether further surveillance is warranted. I would encourage psyllium bulking fiber supplementation on a long-term daily maintenance basis.
[2025-07-18 09:05] VITALS: BP 121/66; PULSE 58; RESP 16; TEMP 36.2; O2SAT 97; BMI 34.4
[2025-07-18 10:40] VITALS: BP 102/70; PULSE 66; RESP 16; TEMP 36.1; O2SAT 92
--- NOTE | 2025-07-18 10:43 | EXP.ANES.CKL ---
[facility] Disclaimer: The information contained in this section may have been updated after the patient was seen, as this information can be updated by other users. Medical History Sleep apnea Osteoarthritis Glaucoma FH: cholecystectomy Abdominal hernia GERD (gastroesophageal reflux disease) Hiatal hernia Surgical History S/P partial hysterectomy History of repair of rotator cuff Family History Mother Cancer Sister Cancer Social History Smoking Status: Former smoker smoking status stop date: 40 years ago alcohol intake: current alcohol intake frequency: a few times a month substance use type: denies use current occupational status: retired Travel in the last 8 weeks?: None pets and animals: No caffeine: Yes physical activity: walking frequency: 1-2 times per week [facility] Anesthesia Checklist Patient Identification Patient Identification: Arm Band and Verbal (Name & ) Structural Data Admitted From: Home Planned Operative Procedure/s: colonoscopy Consent for Planned Operative Procedure(s) Verified: Yes Verified Documents: Surgical Consent NPO Status Verified Time NPO: 00:00 Additional verifications Anesthesia Reactions: No Airway Assessment Mallampati Score:: Class II C-Spine Mobility Assessed: Yes TMJ Mobility Assessed: Yes Dentition: Good Dentition Neurological Assessment Level of Consciousness: Awake, Alert and Appropriate Hx Seizures: No Numbness or tingling in extremities: No Anesthesia Plan Anesthesia Risk discussed: Yes Anesthesia Plan: Verified ASA Class: III Anesthesia Type: MAC
[2025-07-18 10:50] VITALS: BP 126/61; PULSE 63; RESP 18; O2SAT 94
[2025-07-18 11:00] VITALS: BP 111/51; PULSE 65; RESP 16; O2SAT 95
[2025-07-18 11:09] VITALS: BP 109/59; PULSE 61; RESP 18; O2SAT 96
== END 2025-07-18 11:11 | disposition home or self-care (01) ==
PROVIDERS: PCP Nurse Practitioner Family; Visit Provider Internal Medicine Gastroenterology
PROC: 0DJD8ZZ Inspection of Lower Intestinal Tract, Via Natural or Artificial Opening Endoscopic (ICD-10-PCS; CPT 45378; principal; 2025-07-18 10:00)
DX: Z12.11 Encounter for screening for malignant neoplasm of colon (principal); D12.0 Benign neoplasm of cecum; K57.30 Diverticulosis of large intestine without perforation or abscess without bleeding; K64.2 Third degree hemorrhoids; K64.4 Residual hemorrhoidal skin tags; Z86.0101 Personal history of adenomatous and serrated colon polyps; K21.9 Gastro-esophageal reflux disease without esophagitis; M19.90 Unspecified osteoarthritis, unspecified site; Z87.891 Personal history of nicotine dependence; Z79.890 Hormone replacement therapy; Z79.899 Other long term (current) drug therapy; Z88.0 Allergy status to penicillin; Z88.2 Allergy status to sulfonamides; Z88.5 Allergy status to narcotic agent
CPT/HCPCS: 45385; 46221; 88300; 88305; C1889; J2003; J2704